=== PATIENT | female | born 1940 | race Caucasian/White ===

== ENCOUNTER 2020-04-25 11:25 | Outpatient (REF) | payer MEDICARE, SELFPAY ==
--- NOTE | 2020-04-25 11:34 | MM_ITS ---
EXAMINATION: MM SCREENING DIGITAL BREAST TOMOSYNTHESIS, BILATERAL CLINICAL INFORMATION: Screening. Asymptomatic. Family history postmenopausal breast cancer in mother. The lifetime risk of breast cancer based on the Tyrer-Cuzick Model is 2%. COMPARISON: Mammography: 04/11/2019, 03/21/2018 TECHNIQUE: Digital breast tomosynthesis is performed in both the craniocaudal and mediolateral oblique views along with computer-aided detection (CAD). Synthesized 2D images are generated from the tomosynthesis. FINDINGS: There are scattered areas of fibroglandular density (ACR BI-RADS breast composition Category b). There are no significant masses, abnormal calcifications, or other abnormalities. Parenchymal pattern is similar to prior study. Again, there are scattered bilateral benign round and ductal secretory calcifications. MM/MM tomosynthesis screening BI IMPRESSION: No significant changes from prior studies. ASSESSMENT: BI-RADS 2: Benign RECOMMENDATION: Routine annual mammography screening. This patient's information was entered into a reminder system with a target due date for their next mammogram.
== END 2020-04-25 11:26 | disposition home or self-care (01) ==
LOC: HO.MAMMO 11:25
PROVIDERS: PCP Internal Medicine; Visit Provider Internal Medicine
DX: Z12.31 Encounter for screening mammogram for malignant neoplasm of breast (principal)
CPT/HCPCS: 77063; 77067

== ENCOUNTER 2020-05-01 12:08 | Outpatient (REF) | payer MEDICARE, SELFPAY ==
[2020-05-01 13:32] LABS: MANUAL DIFF FLAG NO
[2020-05-01 13:38] LABS: Basophils Absolute Auto 0.1 X10*3/uL (0.0-0.2); Basophils Percent Auto 0.6 % (0-2); Eosinophils Absolute Auto 0.2 X10*3/uL (0.0-0.4); Eosinophils Percent Auto 2.4 % (0-4); Hematocrit 43.7 % (37-47); Hemoglobin 13.9 g/dl (12.0-16.0); Imm Gran Abs Auto 0.04 X10*3/uL (0.00-0.03); Imm Gran Pct Auto 0.4 % (0.0-0.4); Lymphocytes Absolute Auto 1.6 X10*3/uL (1.2-4.9); Mean Corpuscular HGB Conc 31.8 g/dl (31.0-35.0); Mean Corpuscular Hemoglobin 29.4 pg (27.0-33.0); Mean Corpuscular Volume 92.4 fL (80-98); Mean Platelet Volume 11.1 fL (9.4-12.3); Monocytes Absolute Auto 0.9 X10*3/uL (0.1-1.2); Monocytes Percent Auto 9.7 % (2-11); Neutrophils Absolute Auto 6.6 X10*3/uL (2.0-8.3); Neutrophils Percent Auto 69.9 % (45-73); Platelet Count 172 X10*3/uL (160-400); Red Blood Count 4.73 X10*6/uL (4.20-5.50); Red Cell Distribution Width 13.8 % (11.0-16.0); White Blood Count 9.5 X10*3/uL (4.8-10.8)
[2020-05-01 14:06] LABS: Alanine Aminotransferase 8 U/L (0-31); Albumin Level 4.6 g/dL (3.5-5.0); Alkaline Phosphatase 63 U/L (39-117); Anion Gap 17 (12-20); Aspartate Amino Transferase 18 U/L (5-31); Bilirubin Total 0.6 mg/dL (0.0-1.0); Blood Urea Nitrogen 40 mg/dL (9-16); Calcium 9.7 mg/dL (8.4-10.2); Carbon Dioxide 24 mmol/L (22-29); Chloride 97 mmol/L (96-108); Estimated Glomerular Filt Rate 28; Glucose Random 104 mg/dL (60-115); Magnesium 3.1 mg/dL (1.6-2.6); Potassium 4.9 mmol/l (3.3-5.1); Sodium 133 mmol/L (135-145); Total Protein 7.8 g/dL (6.5-8.0)
[2020-05-01 14:25] LABS: Creatinine Urine 50.74 mg/dL; Microalbum/Creatinine Ratio Ur 57.1 ug/mg cr
[2020-05-01 14:26] LABS: Estimated Average Glucose 117 mg/dL; Hemoglobin A1c % 5.7 %
== END 2020-05-01 12:09 | disposition home or self-care (01) ==
LOC: HO.10HDL 12:08
PROVIDERS: PCP Internal Medicine; Visit Provider Internal Medicine
DX: I42.9 Cardiomyopathy, unspecified (principal); E11.9 Type 2 diabetes mellitus without complications; I48.91 Unspecified atrial fibrillation
CPT/HCPCS: 36415; 80053; 82043; 83036; 83735; 84443; 85025

== ENCOUNTER 2020-05-12 06:59 | Inpatient (IN) | payer MEDICARE, SELFPAY ==
[2020-05-12] VITALS (10 sets, daily range): BP systolic 95–141; BP diastolic 41–80; PULSE 52–62; RESP 16–20; TEMP 36.6–37.2; O2SAT 92–97; BMI 32.3
--- NOTE | 2020-05-12 07:03 | ED_ITS ---
HPI - Fall General Chief Complaint: Fall Stated Complaint: fall @ 9pm,lt shoulder & leg pain Time Seen by Provider: 05/12/20 07:03 Source: patient, EMS and old records reviewed Mode of arrival: EMS Limitations: no limitations History of Present Illness MD complaint: fall Onset (ago): week(s) Fall from: standing and chair Fall witnessed: no Place fall occurred: home Loss of consciousness: none Prolonged down time: no Symptoms prior to fall: none Context: tripped/slipped and history of frequent falls Location of injury: head and face Related Data Home Medications Medication Instructions Recorded Confirmed Calcium 500 + D (D3) 500 mg PO DAILY 05/12/20 05/12/20 apixaban [Eliquis] 5 mg PO BID 05/12/20 05/12/20 aspirin 81 mg PO DAILY 05/12/20 05/12/20 bupropion HCl 150 mg PO DAILY 05/12/20 05/12/20 carvedilol 25 mg PO BID 05/12/20 05/12/20 citalopram 40 mg PO DAILY 05/12/20 05/12/20 furosemide 40 mg PO DAILY 05/12/20 05/12/20 magnesium oxide 800 mg PO BID 05/12/20 05/12/20 metformin 500 mg PO BID 05/12/20 05/12/20 potassium chloride 10 meq PO DAILY 05/12/20 05/12/20 pravastatin 40 mg PO DAILY 05/12/20 05/12/20 sacubitril-valsartan [Entresto] 1 tab PO BID 05/12/20 05/12/20 spironolactone 12.5 mg PO DAILY 05/12/20 05/12/20 trazodone 25 mg PO BEDTIME 05/12/20 05/12/20 Allergies Allergy/AdvReac Type Severity Reaction Status Date / Time No Known Allergies Allergy Unknown UNKNOWN Unverified 03/21/20 15:34 [NO KNOWN ALLERGIES] Review of Systems Review of Systems: Constitutional : No Fever, No Chills ENT/Mouth : No Ear Pain, No Hoarseness, No sore throat Eyes: No Eye Pain, No Swelling, No Redness, No Foreign Body Cardiovascular : No Chest Pain, No SOB Respiratory : No Cough, No Dyspnea Gastrointestinal : No Nausea, No Vomiting, No Diarrhea, No abdominal Pain Genitourinary : No Dysuria, No Hematuria Musculoskeletal : no joint pain, No Myalgias, No Joint Swelling Skin : No Skin lacerations, No rash Neuro : No Weakness, No Numbness, No Loss of Consciousness, No Dizziness, No Headache, frequent falls Psych : No Anxiety/Panic, No Depression Heme/Lymph: no easy bruising, no Lymphadenopathy Endocrine : No Polyuria, No Polydipsia All other systems reviewed and are negative [facility] Past Medical History Attestation statement: The following information was validated with the patient. Source: old records reviewed Medical History (Updated 05/12/20 @ 09:56 by Maria Isabel Rodriguez DO) Afib CHF (congestive heart failure) Diabetes Hepatitis C HTN (hypertension) Hyperlipidemia PTSD (post-traumatic stress disorder) Respiratory failure Surgical History (Updated 05/12/20 @ 07:06 by Maria Isabel Rodriguez DO) H/O section H/O exploratory laparotomy H/O neck surgery Social History Social History (Updated 05/12/20 @ 07:06 by Maria Isabel Rodriguez DO) Alcohol intake: never Smoking Status: Never smoker Use of substances other than those prescribed or required for medical reasons: No Advance Directives: No Advance Directives Information Provided: No Physical Exam Vital Signs: Vital Signs: Last Vital Signs Temp 98.7 F 05/12/20 07:08 Pulse 60 05/12/20 10:45 Resp 16 05/12/20 10:45 BP 109/47 L 05/12/20 10:45 Pulse Ox 94 05/12/20 10:45 Body Mass Index 32.3 Appearance: Alert. Oriented X3. No acute distress. Eyes: Pupils equal, round and reactive to light. ENT: Pharynx normal. Abrasions that appear somewhat old to tip of nose and chin Neck: Normal inspection. Neck supple. CVS: irregular bradycardic heart rate and rhythm. Pulses normal. Respiratory: No respiratory distress. Breath sounds normal. Abdomen: Soft and nontender. Skin: Skin warm and dry. Normal skin color. Normal skin turgor. Extremities: No lower extremity edema. No calf ttp no pain with ROM Neuro: Oriented X 3. No motor deficit. No sensory deficit. Course Course Course Narrative: trop lower than baseline, BNP much lower than baseline lactic acidosis likely due to dehydration and not infection or severe sepsis patinet is obese IBW is 50kg so sepsis fluids would be 1500cc of fluids planned admit for UTI, acute on chronic renal insufficiency focused exam for sepsis performed 1145am MDM - Fall MDM Narrative Medical decision making narrative: 80 yo female with CHF EF 20%, HTN, HPL, DM, PAF on eliquis here with unknown duration a while, weeks of falls at home, denies infections, CP/SOB, no GIB symptoms, states she trips sometimes and other times she loses her balance - given age and AC therapy will obtain labs, CT head/cspine for trauma, EKG, gentle hydration, UA, if workup negative will need PT consult for possible rehab and placement, no obvious trauma other than abrasions to face. Lab Data Result diagrams: 05/12/20 07:32 05/12/20 08:27 Labs: Lab Results 05/12/20 05/12/20 05/12/20 Range/Units 07:32 07:32 07:32 WBC 9.4 (4.8-10.8) X10*3/uL RBC 4.21 (4.20-5.50) X10*6/uL Hgb 12.5 (12.0-16.0) g/dl Hct 37.9 (37-47) % MCV 90.0 (80-98) fL MCH 29.7 (27.0-33.0) pg MCHC 33.0 (31.0-35.0) g/dl RDW 14.2 (11.0-16.0) % Plt Count 194 (160-400) X10*3/uL MPV 10.8 (9.4-12.3) fL Immature Gran % (Auto) 0.4 (0.0-0.4) % Neut % (Auto) 66.9 (45-73) % Lymph % (Auto) 19.4 L (20-40) % [place] % (Auto) 11.0 (2-11) % Eos % (Auto) 1.7 (0-4) % Baso % (Auto) 0.6 (0-2) % Lymph # (Auto) 1.8 (1.2-4.9) X10*3/uL [place] # (Auto) 1.0 (0.1-1.2) X10*3/uL Eos # (Auto) 0.2 (0.0-0.4) X10*3/uL Baso # (Auto) 0.1 (0.0-0.2) X10*3/uL Abs Immat Gran (auto) 0.04 H (0.00-0.03) X10*3/uL Absolute Neuts (auto) 6.3 (2.0-8.3) X10*3/uL Absolute Nucleated RBC 0.000 (0.0-0.012) X10*3/uL Nucleated RBC % (auto) 0.0 (0.0-0.2) /100WBC PT 20.8 H (10.8-13.0) SEC INR 1.7 H (0.9-1.1) APTT 44.7 H (24.1-38.0) SEC Sodium Cancelled Potassium Cancelled Chloride Cancelled Carbon Dioxide Cancelled Anion Gap Cancelled BUN Cancelled Creatinine Cancelled Estim Creat Clear Calc Cancelled Estimated GFR Cancelled Random Glucose Cancelled Lactic Acid (0.5-2.0) mmol/L Lactic Acid Fup @ 2Hr (0.5-2.0) mmol/L Calcium Cancelled Magnesium Cancelled Total Bilirubin Cancelled Direct Bilirubin Cancelled AST Cancelled ALT Cancelled Alkaline Phosphatase Cancelled Total Creatine Kinase Troponin I High Sens (<3.5-17.0) ng/L B-Natriuretic Peptide (<100) pg/mL Total Protein Cancelled Albumin Cancelled Lipase Cancelled Urine Color Urine Appearance Urine pH (5.0-8.0) Ur Specific [place] (1.005-1.025) Urine Protein (NEG-TRACE) MG/DL Urine Glucose (UA) (NEG) MG/DL Urine Ketones (NEG) MG/DL Urine Blood (NEG) Urine Nitrite (NEG) Ur Leukocyte Esterase (NEG) Urine RBC (0) /HPF Urine WBC (0-4) /HPF Ur Squamous Epith Cells /LPF Urine Bacteria /LPF Coronavirus (PCR) (Negative) 05/12/20 05/12/20 05/12/20 Range/Units 07:32 07:32 07:32 WBC (4.8-10.8) X10*3/uL RBC (4.20-5.50) X10*6/uL Hgb (12.0-16.0) g/dl Hct (37-47) % MCV (80-98) fL MCH (27.0-33.0) pg MCHC (31.0-35.0) g/dl RDW (11.0-16.0) % Plt Count (160-400) X10*3/uL MPV (9.4-12.3) fL Immature Gran % (Auto) (0.0-0.4) % Neut % (Auto) (45-73) % Lymph % (Auto) (20-40) % [place] % (Auto) (2-11) % Eos % (Auto) (0-4) % Baso % (Auto) (0-2) % Lymph # (Auto) (1.2-4.9) X10*3/uL [place] # (Auto) (0.1-1.2) X10*3/uL Eos # (Auto) (0.0-0.4) X10*3/uL Baso # (Auto) (0.0-0.2) X10*3/uL Abs Immat Gran (auto) (0.00-0.03) X10*3/uL Absolute Neuts (auto) (2.0-8.3) X10*3/uL Absolute Nucleated RBC (0.0-0.012) X10*3/uL Nucleated RBC % (auto) (0.0-0.2) /100WBC PT (10.8-13.0) SEC INR (0.9-1.1) APTT (24.1-38.0) SEC Sodium Potassium Chloride Carbon Dioxide Anion Gap BUN Creatinine Estim Creat Clear Calc Estimated GFR Random Glucose Lactic Acid 2.1 H* (0.5-2.0) mmol/L Lactic Acid Fup @ 2Hr (0.5-2.0) mmol/L Calcium Magnesium Total Bilirubin Direct Bilirubin AST ALT Alkaline Phosphatase Total Creatine Kinase Cancelled Troponin I High Sens 8.8 (<3.5-17.0) ng/L B-Natriuretic Peptide 505 H (<100) pg/mL Total Protein Albumin Lipase Urine Color Urine Appearance Urine pH (5.0-8.0) Ur Specific [place] (1.005-1.025) Urine Protein (NEG-TRACE) MG/DL Urine Glucose (UA) (NEG) MG/DL Urine Ketones (NEG) MG/DL Urine Blood (NEG) Urine Nitrite (NEG) Ur Leukocyte Esterase (NEG) Urine RBC (0) /HPF Urine WBC (0-4) /HPF Ur Squamous Epith Cells /LPF Urine Bacteria /LPF Coronavirus (PCR) (Negative) 05/12/20 05/12/20 05/12/20 Range/Units 08:27 08:27 08:27 WBC (4.8-10.8) X10*3/uL RBC (4.20-5.50) X10*6/uL Hgb (12.0-16.0) g/dl Hct (37-47) % MCV (80-98) fL MCH (27.0-33.0) pg MCHC (31.0-35.0) g/dl RDW (11.0-16.0) % Plt Count (160-400) X10*3/uL MPV (9.4-12.3) fL Immature Gran % (Auto) (0.0-0.4) % Neut % (Auto) (45-73) % Lymph % (Auto) (20-40) % [place] % (Auto) (2-11) % Eos % (Auto) (0-4) % Baso % (Auto) (0-2) % Lymph # (Auto) (1.2-4.9) X10*3/uL [place] # (Auto) (0.1-1.2) X10*3/uL Eos # (Auto) (0.0-0.4) X10*3/uL Baso # (Auto) (0.0-0.2) X10*3/uL Abs Immat Gran (auto) (0.00-0.03) X10*3/uL Absolute Neuts (auto) (2.0-8.3) X10*3/uL Absolute Nucleated RBC (0.0-0.012) X10*3/uL Nucleated RBC % (auto) (0.0-0.2) /100WBC PT (10.8-13.0) SEC INR (0.9-1.1) APTT (24.1-38.0) SEC Sodium 135 Potassium 5.2 H Chloride 102 Carbon Dioxide 23 Anion Gap 15 BUN 52 H Creatinine 1.96 H Estim Creat Clear Calc 20.3 Estimated GFR 24 Random Glucose 107 Lactic Acid (0.5-2.0) mmol/L Lactic Acid Fup @ 2Hr (0.5-2.0) mmol/L Calcium 9.1 D Magnesium 2.5 Total Bilirubin 0.4 Direct Bilirubin 0.2 AST 18 ALT 13 Alkaline Phosphatase 57 Total Creatine Kinase 33 Troponin I High Sens (<3.5-17.0) ng/L B-Natriuretic Peptide (<100) pg/mL Total Protein 6.7 Albumin 4.0 Lipase 89 H Cancelled Urine Color Urine Appearance Urine pH (5.0-8.0) Ur Specific [place] (1.005-1.025) Urine Protein (NEG-TRACE) MG/DL Urine Glucose (UA) (NEG) MG/DL Urine Ketones (NEG) MG/DL Urine Blood (NEG) Urine Nitrite (NEG) Ur Leukocyte Esterase (NEG) Urine RBC (0) /HPF Urine WBC (0-4) /HPF Ur Squamous Epith Cells /LPF Urine Bacteria /LPF Coronavirus (PCR) (Negative) 05/12/20 05/12/20 05/12/20 Range/Units 08:37 10:00 10:33 WBC (4.8-10.8) X10*3/uL RBC (4.20-5.50) X10*6/uL Hgb (12.0-16.0) g/dl Hct (37-47) % MCV (80-98) fL MCH (27.0-33.0) pg MCHC (31.0-35.0) g/dl RDW (11.0-16.0) % Plt Count (160-400) X10*3/uL MPV (9.4-12.3) fL Immature Gran % (Auto) (0.0-0.4) % Neut % (Auto) (45-73) % Lymph % (Auto) (20-40) % [place] % (Auto) (2-11) % Eos % (Auto) (0-4) % Baso % (Auto) (0-2) % Lymph # (Auto) (1.2-4.9) X10*3/uL [place] # (Auto) (0.1-1.2) X10*3/uL Eos # (Auto) (0.0-0.4) X10*3/uL Baso # (Auto) (0.0-0.2) X10*3/uL Abs Immat Gran (auto) (0.00-0.03) X10*3/uL Absolute Neuts (auto) (2.0-8.3) X10*3/uL Absolute Nucleated RBC (0.0-0.012) X10*3/uL Nucleated RBC % (auto) (0.0-0.2) /100WBC PT (10.8-13.0) SEC INR (0.9-1.1) APTT (24.1-38.0) SEC Sodium Potassium Chloride Carbon Dioxide Anion Gap BUN Creatinine Estim Creat Clear Calc Estimated GFR Random Glucose Lactic Acid (0.5-2.0) mmol/L Lactic Acid Fup @ 2Hr 0.8 (0.5-2.0) mmol/L Calcium Magnesium Total Bilirubin Direct Bilirubin AST ALT Alkaline Phosphatase Total Creatine Kinase Troponin I High Sens (<3.5-17.0) ng/L B-Natriuretic Peptide (<100) pg/mL Total Protein Albumin Lipase Urine Color YELLOW Urine Appearance CLOUDY Urine pH 6.0 (5.0-8.0) Ur Specific [place] 1.025 (1.005-1.025) Urine Protein TRACE (NEG-TRACE) MG/DL Urine Glucose (UA) NEG (NEG) MG/DL Urine Ketones 5 (NEG) MG/DL Urine Blood NEG (NEG) Urine Nitrite NEG (NEG) Ur Leukocyte Esterase 2+ H (NEG) Urine RBC 0 (0) /HPF Urine WBC 15-29 H (0-4) /HPF Ur Squamous Epith Cells 1+ /LPF Urine Bacteria 4+ /LPF Coronavirus (PCR) NEGATIVE (Negative) ECG Data Attestation: I personally reviewed and interpreted this ECG as follows: ECG interpretation date: 05/12/20 ECG interpretation time: 07:45 Interpretation: Rate: 64 Rhythm: NSR with occasional PVCs [place]: normal Normal P waves. Normal JUSTIN. Normal QRS complex. ST T wave : nonspecific, LVH qTC: prolonged prior studies: no sig change, no acute ischemia The study has been interpreted contemporaneously by me. . Discharge Plan Discharge Clinical Impression: Acute UTI, Abrasion, Acute kidney injury Falls Qualifiers: Encounter type: initial encounter Qualified Code(s): W19.XXXA - Unspecified fall, initial encounter Patient Disposition: Admitted As Inpatient
--- NOTE | 2020-05-12 07:11 | ECG_ITS ---
Test Reason : FALLS Blood Pressure : / mmHG Vent. Rate : 064 BPM Atrial Rate : 064 BPM P-R Int : 198 ms QRS Dur : 104 ms QT Int : 494 ms P-R-T Axes : 006 001 076 degrees QTc Int : 509 ms Sinus rhythm with occasional Premature ventricular complexes Left ventricular hypertrophy with repolarization abnormality Prolonged QT Abnormal ECG When compared with ECG of 13-MAR-2020 14:20, Premature ventricular complexes are now Present Referred By: Maria Isabel Rodriguez Electronically Signed By:JAZLYN MORRIS MD
--- NOTE | 2020-05-12 07:11 | CT_ITS ---
EXAMINATION: CT HEAD WITHOUT CONTRAST CLINICAL INFORMATION: Fall, on calculus COMPARISON: September 17, 2013 TECHNIQUE: Contiguous axial imaging was performed from the skull base to vertex without intravenous administration of contrast. This CT examination was performed using dose optimization techniques as appropriate, variously including the following: *Automated exposure control *Adjustment of mA and/or kV according to patient size (this includes techniques or standardized protocols for targeted exams where dose is matched to indication/reason for exam; i.e. extremities or head) *Use of iterative reconstruction technique DLP: 698.27 mGy-cm FINDINGS: There is no evidence of acute intracranial hemorrhage or territorial infarction. No abnormal mass effect or midline shift is seen. Yoo to white matter differentiation is well preserved. No extra-axial fluid collections are identified. 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 The ventricles are normal in size. There is no abnormal attenuation within the brain parenchyma. The osseous structures and soft tissues are normal. The mastoid air cells and visualized portions of the paranasal sinuses are well aerated. There is hyperostosis frontalis interna present. 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 CT/CT head/brain wo con IMPRESSION: No acute intracranial pathology.
--- NOTE | 2020-05-12 07:11 | CT_ITS ---
EXAMINATION: CT CERVICAL SPINE WITHOUT CONTRAST CLINICAL INFORMATION: Trauma COMPARISON: September 25, 2017 TECHNIQUE: CT cervical spine without intrathecal contrast. Sagittal and coronal reconstructions. This CT examination was performed using dose optimization techniques as appropriate, variously including the following: *Automated exposure control *Adjustment of mA and/or kV according to patient size (this includes techniques or standardized protocols for targeted exams where dose is matched to indication/reason for exam; i.e. extremities or head) *Use of iterative reconstruction technique DLP: 516.01 mGy-cm FINDINGS: No abnormal prevertebral soft tissue swelling is seen. The paraspinal muscle fat planes are maintained. No acute cervical spine fracture. There is facet arthropathy seen C3-C7 on the right and C2-C7 on the left. Disc space narrowing is seen at the C6-C7 disc space level and at the C7-T1 disc space level. Posterior disc bulges are seen at the C5-C6 and C6-C7 levels. There is spurring of the joints of [place] with spurring about the left C6-C7 level and right C5-C6 level causing some anterior neural foraminal encroachment. There is some hypertrophied synovium with pannus formation about the dens without bony destruction. Temporomandibular joints appear unremarkable. Pterygoid plates are intact. CT/CT cervical spine wo con IMPRESSION: No acute cervical spine fracture. Multilevel cervical spondylosis.
--- NOTE | 2020-05-12 07:12 | XR_ITS ---
EXAMINATION: XR CHEST CLINICAL INFORMATION: Fall. COMPARISON: 03/12/20. TECHNIQUE: Frontal view of the chest was obtained. FINDINGS: The lungs are well expanded and clear. The pleural spaces are clear. The heart and mediastinal structures are unremarkable. 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 No acute bony abnormality is seen. XR/XR chest 1V IMPRESSION: No acute abnormality.
[2020-05-12] MEDS: 0.9 % Sodium Chloride 500 ML IV (07:33)
[2020-05-12 07:45] LABS: MANUAL DIFF FLAG NO
[2020-05-12 07:49] LABS: Basophils Absolute Auto 0.1 X10*3/uL (0.0-0.2); Basophils Percent Auto 0.6 % (0-2); Eosinophils Absolute Auto 0.2 X10*3/uL (0.0-0.4); Eosinophils Percent Auto 1.7 % (0-4); Hematocrit 37.9 % (37-47); Hemoglobin 12.5 g/dl (12.0-16.0); Imm Gran Abs Auto 0.04 X10*3/uL (0.00-0.03); Imm Gran Pct Auto 0.4 % (0.0-0.4); Lymphocytes Absolute Auto 1.8 X10*3/uL (1.2-4.9); Lymphocytes Percent Auto 19.4 % (20-40); Mean Corpuscular Hemoglobin 29.7 pg (27.0-33.0); Mean Platelet Volume 10.8 fL (9.4-12.3); Neutrophils Absolute Auto 6.3 X10*3/uL (2.0-8.3); Neutrophils Percent Auto 66.9 % (45-73); Platelet Count 194 X10*3/uL (160-400); Red Blood Count 4.21 X10*6/uL (4.20-5.50); Red Cell Distribution Width 14.2 % (11.0-16.0); White Blood Count 9.4 X10*3/uL (4.8-10.8)
[2020-05-12 07:51] LABS: INTERNATIONAL NORM RATIO 1.7 (0.9-1.1); Prothrombin Time 20.8 SEC (10.8-13.0)
[2020-05-12 07:54] LABS: Partial Thromboplastin Time 44.7 SEC (24.1-38.0)
[2020-05-12 08:10] LABS: B Type Natriuretic Peptide 505 pg/mL (<100); Troponin-I High Sensitivity 8.8 ng/L (<3.5-17.0)
[2020-05-12 08:13] LABS: Lactic Acid 2.1 mmol/L (0.5-2.0)
[2020-05-12 08:43] LABS: Glucose Urine UA NEG (NEG); Leukocyte Esterase Urine 2+ (NEG); Nitrite Urine NEG (NEG); Specific Gravity - Urine 1.025 (1.005-1.025); Urine Blood NEG (NEG); Urine Ketones 5 MG/DL (NEG); Urine Protein TRACE MG/DL (NEG-TRACE)
[2020-05-12 08:44] LABS: Appearance Urine CLOUDY; Color Urine YELLOW
[2020-05-12 08:50] LABS: Bacteria Urine 4+ /LPF; RBC Urine 0 /HPF (0); Squamous Epithelial Cell Urine 1+ /LPF
[2020-05-12] MEDS: Magnesium Sulfate/H2O 2 GM/50 ML PIGGYBACK IV (08:52)
[2020-05-12] MEDS: 0.9 % Sodium Chloride 1,000 ML 999 ML IVCONT (09:21)
[2020-05-12 09:23] LABS: Alanine Aminotransferase 13 U/L (0-31); Alkaline Phosphatase 57 U/L (39-117); Aspartate Amino Transferase 18 U/L (5-31); Bilirubin Direct 0.2 mg/dL (0.0-0.5); Bilirubin Total 0.4 mg/dL (0.0-1.0); Magnesium 2.5 mg/dL (1.6-2.6); Total Protein 6.7 g/dL (6.5-8.0)
[2020-05-12 09:24] LABS: Anion Gap 15 (12-20); Blood Urea Nitrogen 52 mg/dL (9-16); Calcium 9.1 mg/dL (8.4-10.2); Carbon Dioxide 23 mmol/L (22-29); Chloride 102 mmol/L (96-108); Creatinine Clr Calc Pharmacy 20.3; Estimated Glomerular Filt Rate 24; Glucose Random 107 mg/dL (60-115); Potassium 5.2 mmol/l (3.3-5.1); Sodium 135 mmol/L (135-145)
[2020-05-12 09:40] LABS: Reflex Lactate? Lactic Acid Added
[2020-05-12 09:45] LABS: Lipase 89 U/L (8-78)
[2020-05-12] MEDS: cefTRIAXone sodium 1 GM in 0.9 % Sodium Chloride 50 ML IV ×2 (09:55→22:01)
--- NOTE | 2020-05-12 10:06 | PC.NURSE ---
PT RESTING QUIETLY NO RESP DIFFICULTIES AWAITING ADMISSION IV FLUIDS AND ANTIBIOTICS INFUSING, MAG HELD FOR ANTIBIOTIC
--- NOTE | 2020-05-12 10:58 | PC.NURSE ---
HOSPITALIST TEAM HERE FOR ADMISSION
--- NOTE | 2020-05-12 11:09 | PM.IMHP ---
History of Present Illness Date of Service: 05/12/20 <Colleen Romeo NP - Last Filed: 05/12/20 12:15> Chief Complaint: Fall. <Colleen Romeo NP - Last Filed: 05/12/20 12:15> 80-year-old woman presenting to the ER after fall. She reports yesterday in the afternoon she had fallen to the ground and does not remember if she had any precipitating symptoms. She reported over last several weeks she has had has had several falls and she reports that she thinks that she loses consciousness but she remembers right away when she is on the floor so maybe she is out for a few seconds. She does have multiple old bruises to her legs and knees. She reports that last night she was walking and then suddenly fell to the ground. Her son was able to help her get up. She did go to bed however when she wake up this morning she was on the couch and her left leg felt like it was numb when she tried to get up she could not walk therefore she laid back down because she felt like she would pass out. EMS was called and patient was brought to the ER to be evaluated. He has significant history of heart failure with reduced ejection fraction with last EF of 25-30% and nonischemic cardiomyopathy. She also has a history of paroxysmal atrial fibrillation. She denies chest pain, shortness of breath, nausea, vomiting, diarrhea. She was noted to be hypotensive in the ER with blood pressure as low as 95/41. Urinalysis was positive. Potassium was mildly elevated at 5.2, creatinine 1.96. Chest x-ray was negative for any consolidation or effusion. Head CT was negative for any acute abnormality. Cervical spine CT was also negative for any acute fracture. She was given a L and half of IV fluids, Rocephin, IV magnesium. She will be admitted for further management treatment of syncope and UTI. <Colleen Romeo NP - Last Filed: 05/12/20 12:15> Review of Systems Review of Systems: Denies any recent fever chills or decrease in appetite respiratory see HPI cardiovascular See HPI gastrointestinal denies any dysphagia abdominal pain nausea vomiting or diarrhea genitourinary denies any dysuria frequency or hematuria musculoskeletal reports neck and left shoulder pain which is chronic due to arthritis. neuropsych denies any weakness or seizures all other systems reviewed are negative <Colleen Romeo NP - Last Filed: 05/12/20 12:15> [facility] Medical History: Medical History (Updated 05/13/20 @ 10:12 by Chacho Tubbs MD) Afib CHF (congestive heart failure) Diabetes Hepatitis C HTN (hypertension) Hyperlipidemia Nonischemic cardiomyopathy PTSD (post-traumatic stress disorder) Respiratory failure <Colleen Romeo NP - Last Filed: 05/12/20 12:15> Functional capacity: independent ambulation <Colleen Romeo NP - Last Filed: 05/12/20 12:15> Pertinent family history: heart disease <Colleen Romeo NP - Last Filed: 05/12/20 12:15> Surgical History: Surgical History H/O cardiac catheterization H/O section H/O exploratory laparotomy H/O neck surgery <Colleen Romeo NP - Last Filed: 05/12/20 12:15> Social History: Social History Household Members: Spouse Housing: House Do you presently have visiting nurse or other home services: Yes Alcohol intake: never Smoking Status: Never smoker Use of substances other than those prescribed or required for medical reasons: No Currently Displaying Signs/Symptoms of Drug Intoxication Withdrawal: No Any prior treatment program specific to substance use: No Have you been hit, kicked, punched, or otherwise hurt by someone within the past year? If so, by whom?: No Do you feel safe in your current relationship?: Yes Is there a partner from a previous relationship who is making you feel unsafe now?: No Are you made to feel afraid or neglected: No Advance Directives: No Advance Directives Information Provided: No Do you have thoughts of harming others: None Do you have a plan to hurt others: No Plan Recently lost weight without trying: No service: No <Colleen Romeo NP - Last Filed: 05/12/20 12:15> Meds Allergies/Adverse reactions: Allergies Allergy/AdvReac Type Severity Reaction Status Date / Time No Known Allergies Allergy Unknown UNKNOWN Unverified 03/21/20 15:34 [NO KNOWN ALLERGIES] <Colleen Romeo NP - Last Filed: 05/12/20 12:15> Home medications: Home Medications Medication Instructions Recorded Confirmed Type Calcium 500 + D (D3) 500 mg PO DAILY 05/12/20 05/12/20 History apixaban [Eliquis] 5 mg PO BID 05/12/20 05/12/20 History aspirin 81 mg PO DAILY 05/12/20 05/12/20 History bupropion HCl 150 mg PO DAILY 05/12/20 05/12/20 History carvedilol 25 mg PO BID 05/12/20 05/12/20 History citalopram 40 mg PO DAILY 05/12/20 05/12/20 History furosemide 40 mg PO DAILY 05/12/20 05/12/20 History magnesium oxide 800 mg PO BID 05/12/20 05/12/20 History metformin 500 mg PO BID 05/12/20 05/12/20 History potassium chloride 10 meq PO DAILY 05/12/20 05/12/20 History pravastatin 40 mg PO DAILY 05/12/20 05/12/20 History sacubitril-valsartan [Entresto] 1 tab PO BID 05/12/20 05/12/20 History spironolactone 12.5 mg PO DAILY 05/12/20 05/12/20 History trazodone 25 mg PO BEDTIME 05/12/20 05/12/20 History <Colleen Romeo NP - Last Filed: 05/12/20 12:15> Physical Exam Vital Signs and Narrative: Vital Signs: Last Vital Signs Temp 98.7 F 05/12/20 07:08 Pulse 60 05/12/20 10:45 Resp 16 05/12/20 10:45 BP 109/47 L 05/12/20 10:45 Pulse Ox 94 05/12/20 10:45 Body Mass Index 32.3 <Colleen Romeo NP - Last Filed: 05/12/20 12:15> Appearing in no acute distress head is normocephalic atraumatic eyes pupils are PERRLA sclera is anicteric mouth throat mucous membranes are intact and moist neck is supple no lymphadenopathy, no JVD noted lung sounds are clear to auscultation heart regular rate rhythm, clear S1, S2 positive bowel sounds, abdomen is soft, nontender neuro patient is alert x3, no focal deficits <Colleen Romeo NP - Last Filed: 05/12/20 12:15> Results Labs CBC and Chem 7: : 11/09/20 04:15 05/13/20 04:15 <Colleen Romeo, SEARCH DIRECTOR - Last Filed: 05/12/20 12:15> Labs: Laboratory Results - last 24 hr 05/12/20 05/12/20 05/12/20 07:32 07:32 07:32 MCV 90.0 MCH 29.7 MCHC 33.0 RDW 14.2 Plt Count 194 MPV 10.8 Immature Gran % (Auto) 0.4 Neut % (Auto) 66.9 Lymph % (Auto) 19.4 L [place] % (Auto) 11.0 Eos % (Auto) 1.7 Baso % (Auto) 0.6 Lymph # (Auto) 1.8 [place] # (Auto) 1.0 Eos # (Auto) 0.2 Baso # (Auto) 0.1 Abs Immat Gran (auto) 0.04 H Absolute Neuts (auto) 6.3 Absolute Nucleated RBC 0.000 Nucleated RBC % (auto) 0.0 PT 20.8 H INR 1.7 H APTT 44.7 H Anion Gap Cancelled Estim Creat Clear Calc Cancelled Estimated GFR Cancelled Random Glucose Cancelled Lactic Acid Calcium Cancelled Magnesium Cancelled Total Bilirubin Cancelled Direct Bilirubin Cancelled AST Cancelled ALT Cancelled Alkaline Phosphatase Cancelled Total Creatine Kinase Troponin I High Sens B-Natriuretic Peptide Total Protein Cancelled Albumin Cancelled Lipase Cancelled Urine Color Urine Appearance Urine pH Ur Specific [place] Urine Protein Urine Glucose (UA) Urine Ketones Urine Blood Urine Nitrite Ur Leukocyte Esterase Urine RBC Urine WBC Ur Squamous Epith Cells Urine Bacteria 05/12/20 05/12/20 05/12/20 07:32 07:32 07:32 MCV MCH MCHC RDW Plt Count MPV Immature Gran % (Auto) Neut % (Auto) Lymph % (Auto) [place] % (Auto) Eos % (Auto) Baso % (Auto) Lymph # (Auto) [place] # (Auto) Eos # (Auto) Baso # (Auto) Abs Immat Gran (auto) Absolute Neuts (auto) Absolute Nucleated RBC Nucleated RBC % (auto) PT INR APTT Anion Gap Estim Creat Clear Calc Estimated GFR Random Glucose Lactic Acid 2.1 H* Calcium Magnesium Total Bilirubin Direct Bilirubin AST ALT Alkaline Phosphatase Total Creatine Kinase Cancelled Troponin I High Sens 8.8 B-Natriuretic Peptide 505 H Total Protein Albumin Lipase Urine Color Urine Appearance Urine pH Ur Specific [place] Urine Protein Urine Glucose (UA) Urine Ketones Urine Blood Urine Nitrite Ur Leukocyte Esterase Urine RBC Urine WBC Ur Squamous Epith Cells Urine Bacteria 05/12/20 05/12/20 05/12/20 08:27 08:27 08:27 MCV MCH MCHC RDW Plt Count MPV Immature Gran % (Auto) Neut % (Auto) Lymph % (Auto) [place] % (Auto) Eos % (Auto) Baso % (Auto) Lymph # (Auto) [place] # (Auto) Eos # (Auto) Baso # (Auto) Abs Immat Gran (auto) Absolute Neuts (auto) Absolute Nucleated RBC Nucleated RBC % (auto) PT INR APTT Anion Gap 15 Estim Creat Clear Calc 20.3 Estimated GFR 24 Random Glucose 107 Lactic Acid Calcium 9.1 D Magnesium 2.5 Total Bilirubin 0.4 Direct Bilirubin 0.2 AST 18 ALT 13 Alkaline Phosphatase 57 Total Creatine Kinase 33 Troponin I High Sens B-Natriuretic Peptide Total Protein 6.7 Albumin 4.0 Lipase 89 H Cancelled Urine Color Urine Appearance Urine pH Ur Specific [place] Urine Protein Urine Glucose (UA) Urine Ketones Urine Blood Urine Nitrite Ur Leukocyte Esterase Urine RBC Urine WBC Ur Squamous Epith Cells Urine Bacteria 05/12/20 08:37 MCV MCH MCHC RDW Plt Count MPV Immature Gran % (Auto) Neut % (Auto) Lymph % (Auto) [place] % (Auto) Eos % (Auto) Baso % (Auto) Lymph # (Auto) [place] # (Auto) Eos # (Auto) Baso # (Auto) Abs Immat Gran (auto) Absolute Neuts (auto) Absolute Nucleated RBC Nucleated RBC % (auto) PT INR APTT Anion Gap Estim Creat Clear Calc Estimated GFR Random Glucose Lactic Acid Calcium Magnesium Total Bilirubin Direct Bilirubin AST ALT Alkaline Phosphatase Total Creatine Kinase Troponin I High Sens B-Natriuretic Peptide Total Protein Albumin Lipase Urine Color YELLOW Urine Appearance CLOUDY Urine pH 6.0 Ur Specific [place] 1.025 Urine Protein TRACE Urine Glucose (UA) NEG Urine Ketones 5 Urine Blood NEG Urine Nitrite NEG Ur Leukocyte Esterase 2+ H Urine RBC 0 Urine WBC 15-29 H Ur Squamous Epith Cells 1+ Urine Bacteria 4+ <Colleen Romeo SEARCH DIRECTOR - Last Filed: 05/12/20 12:15> Imaging Radiologist's Impressions: Impressions Cervical Spine CT 05/12/20 07:11 IMPRESSION: No acute cervical spine fracture. Multilevel cervical spondylosis. Head CT 05/12/20 07:11 IMPRESSION: No acute intracranial pathology. Chest X-Ray 05/12/20 07:12 IMPRESSION: No acute abnormality. <Colleen Romeo NP - Last Filed: 05/12/20 12:15> Assessment and Plan (1) Syncope: Status: Acute <Colleen Romeo NP - Last Filed: 05/12/20 12:15> (2) Acute kidney injury: Status: Acute <Colleen Romeo NP - Last Filed: 05/12/20 12:15> (3) Acute UTI: Status: Acute <Colleen Romeo NP - Last Filed: 05/12/20 12:15> 80-year-old woman admitted with possible syncope, UTI and MELONY. She has had a history of frequent falls more recently and she reports that she feels like she has now, fall so the floor and wakes up within seconds. She does have a history of heart failure with reduced ejection fraction and reported that she was told that she may need a defibrillator. Syncope. Unknown if true syncope. She does have a history of atrial fibrillation and nonischemic cardiomyopathy. So far no abnormal arrhythmias noted on telemetry. Will monitor on telemetry, orthostatic blood pressures, Cardiology to follow, out of bed with assist. UTI. No sepsis. Rocephin, follow urine cultures. Hypotension. Hold antihypertensives for now and follow blood pressure closely. MELONY. May be related to hypoperfusion secondary to hypotension. Received IV fluids in the ER, avoid over-hydration due to history of heart failure. Diabetes mellitus . Sliding scale, ADA diet. Heart failure with reduced ejection fraction. No overt heart failure at this time. Will hold Entresto, Lasix and spironolactone for now due to hypotension and MELONY. Monitor intake and output and daily weights. Continue beta keyshawn. Paroxysmal atrial fibrillation. Will continue apixaban and beta-keyshawn. Depression. Continue home medications. DVT prophylaxis with apixaban. Case discussed with Dr. Traylor Full code <Colleen Romeo NP - Last Filed: 05/12/20 12:15>
[2020-05-12 11:11] LABS: ~Lactic Acid-LAB USE ONLY 0.8 mmol/L (0.5-2.0)
[2020-05-12 11:18] LABS: SARS COV2 PCR INHOUSE NEGATIVE (Negative)
--- NOTE | 2020-05-12 12:42 | PM.EVENT ---
Event Note Date of Service: 05/12/2020 Event Note: Patient seen and examined independently and was present during dent portion of E/M service. Agree with midlevel's history, physical, assessment, and plan. 80F presented with dizzyness, found to have MELONY dizziness, melony ?hypotnesion vs arrtyhemia gentle hydration, cardio eval, monitor labs
--- NOTE | 2020-05-12 14:32 | PC.NURSE ---
called the floor for admission
--- NOTE | 2020-05-12 15:58 | PC.NURSE ---
pt given juice and a sandwich
--- NOTE | 2020-05-12 17:16 | PC.NURSE ---
room has been changed, pt awaiting new rm assignment for tele admit
--- NOTE | 2020-05-12 18:04 | PC.NURSE ---
PT AWAITING TRANSFER TO FLOOR I[facility] REPORTS HER ASSIGNED ROOM IS STILL OCCUPIED
[2020-05-12] MEDS: Acetaminophen 325 MG TABLET 650 MG PO (18:45)
[2020-05-12 21:37] LABS: Glucose, Whole Blood 92 mg/dL (60-115)
[2020-05-12] MEDS: Magnesium Oxide 400 MG TABLET 800 MG PO (22:00)
[2020-05-12] MEDS: traZODone HCL 25 MG HALFTAB PO (22:01)
[2020-05-12] MEDS: Apixaban 5 MG TABLET PO (22:01)
[2020-05-12] MEDS: metFORMIN HCl 500 MG TABLET PO (22:01)
[2020-05-12] MEDS: 0.9 % Sodium Chloride Flush 3 ML SYRINGE IVFLUSH ×2 (22:02→23:51)
[2020-05-13] VITALS (11 sets, daily range): BP systolic 95–145; BP diastolic 50–64; PULSE 56–77; RESP 18–20; TEMP 36.2–37.4; O2SAT 93–98; BMI 33.7
[2020-05-13 04:23] LABS: Basophils Absolute Auto 0.1 X10*3/uL (0.0-0.2); Eosinophils Absolute Auto 0.2 X10*3/uL (0.0-0.4); Eosinophils Percent Auto 3.2 % (0-4); Hemoglobin 11.6 g/dl (12.0-16.0); Imm Gran Abs Auto 0.02 X10*3/uL (0.00-0.03); Imm Gran Pct Auto 0.3 % (0.0-0.4); Lymphocytes Absolute Auto 1.9 X10*3/uL (1.2-4.9); Lymphocytes Percent Auto 29.3 % (20-40); MANUAL DIFF FLAG NO; Mean Corpuscular HGB Conc 33.1 g/dl (31.0-35.0); Mean Corpuscular Hemoglobin 30.3 pg (27.0-33.0); Mean Corpuscular Volume 91.4 fL (80-98); Mean Platelet Volume 10.6 fL (9.4-12.3); Monocytes Absolute Auto 0.7 X10*3/uL (0.1-1.2); Monocytes Percent Auto 11.1 % (2-11); Neutrophils Absolute Auto 3.5 X10*3/uL (2.0-8.3); Neutrophils Percent Auto 55.1 % (45-73); Platelet Count 150 X10*3/uL (160-400); Red Blood Count 3.83 X10*6/uL (4.20-5.50); Red Cell Distribution Width 14.2 % (11.0-16.0); White Blood Count 6.3 X10*3/uL (4.8-10.8)
[2020-05-13 04:52] LABS: Anion Gap 11 (12-20); Blood Urea Nitrogen 42 mg/dL (9-16); Calcium 8.7 mg/dL (8.4-10.2); Carbon Dioxide 24 mmol/L (22-29); Chloride 107 mmol/L (96-108); Creatinine Clr Calc Pharmacy 28.3; Estimated Glomerular Filt Rate 36; Glucose Random 85 mg/dL (60-115); Potassium 4.8 mmol/l (3.3-5.1); Sodium 137 mmol/L (135-145)
[2020-05-13] MEDS: Magnesium Oxide 400 MG TABLET 800 MG PO ×2 (08:40→21:12)
[2020-05-13] MEDS: buPROPion HCl XL 150 MG TAB.ER.24H PO (08:40)
[2020-05-13] MEDS: Aspirin 81 MG TAB.CHEW PO (08:40)
[2020-05-13] MEDS: metFORMIN HCl 500 MG TABLET PO ×2 (08:40→21:12)
[2020-05-13] MEDS: Pravastatin Sodium 40 MG TABLET PO (08:40)
[2020-05-13] MEDS: Apixaban 5 MG TABLET PO ×2 (08:41→21:13)
[2020-05-13] MEDS: Calcium + Vitamin D 250 MG TABLET 500 MG PO (08:41)
[2020-05-13] MEDS: Escitalopram Oxalate 20 MG TABLET PO (08:41)
[2020-05-13] MEDS: Lidocaine 4 % Patch ADH..PATCH 2 PATCH TRANSDERMA (08:44)
[2020-05-13] MEDS: 0.9 % Sodium Chloride Flush 3 ML SYRINGE IVFLUSH ×3 (08:47→21:13)
--- NOTE | 2020-05-13 10:04 | PM.CNCAR ---
History of Present Illness History of Present Illness Date of Consult: May 13, 2020 Requesting physician: Marck Traylor Consult reason: hypotension Chief complaint: fall vs syncope, uti Narrative: Thank you for inviting us in consult on [place] for episodes of syncope. She is a pleasant 80-year-old woman with prior history of nonischemic cardiomyopathy with LVEF of 25-30% on adequate neurohormonal modulation. Over the last 2 weeks she has been having recurrent episodes of falls, she thinks she loses consciousness. She has no prodrome all symptoms of lightheadedness, palpitations, chest pain, shortness of breath. She has had some abrasions on the knees and the face. Yesterday she did not feel well and felt like she was going to pass out again and therefore was referred to the emergency room by her son. When she came in she was noted to have acute kidney injury as well as hypertension. She is also noted to have urinary tract infection and possible urosepsis. She was admitted and given IV hydration as well as antibiotics. Her blood pressure is improved. All her cardiac medications have been appropriately withheld. She continues to remain however on Eliquis despite acute kidney injury. She denies any cardiac symptoms in the recent past. Prior to these episodes happening she says she was quite active around the house and managing her own home she. She was not having any symptoms of palpitations, shortness of breath, orthopnea, PND, leg edema. Review of Systems Constitutional: Constitutional: Denies body ache(s), Denies chills, Denies fever(s), Reports frequent falls and Reports malaise Eyes: Eyes: Reports no additional eye complaints ENT: Reports system reviewed and no additional complaints, except as documented Cardiovascular: Cardiovascular: Denies leg edema, Reports Loss of Consciousness, Denies dyspnea on exertion, Denies orthopnea and Denies paroxysmal nocturnal dyspnea Respiratory: Respiratory: Reports no additional respiratory complaints and Denies dyspnea on exertion Gastrointestinal: Gastrointestinal: Reports no additional gastrointestinal complaints Genitourinary: Genitourinary: Reports no additional female genitourinary complaints Neurologic: Reports system reviewed and no additional complaints, except as documented and Reports frequent falls Psychiatric: Psychiatric: Reports no additional psychiatric complaints Hematologic/Lymphatic: Hematologic/Lymphatic: Reports no additional hematologic/lymphatic complaints Allergic/Immunologic: Allergic/Immunologic: Reports no additional allergic/immunologic complaints PMFSH Past Medical History Medical History Afib CHF (congestive heart failure) Diabetes Hepatitis C HTN (hypertension) Hyperlipidemia PTSD (post-traumatic stress disorder) Respiratory failure Functional capacity: independent ambulation Surgical History Surgical History H/O cardiac catheterization H/O section H/O exploratory laparotomy H/O neck surgery Social History Social History Household Members: Spouse Housing: House Do you presently have visiting nurse or other home services: Yes Alcohol intake: never Smoking Status: Never smoker Use of substances other than those prescribed or required for medical reasons: No Currently Displaying Signs/Symptoms of Drug Intoxication Withdrawal: No Any prior treatment program specific to substance use: No Have you been hit, kicked, punched, or otherwise hurt by someone within the past year? If so, by whom?: No Do you feel safe in your current relationship?: Yes Is there a partner from a previous relationship who is making you feel unsafe now?: No Are you made to feel afraid or neglected: No Advance Directives: No Advance Directives Information Provided: No Do you have thoughts of harming others: None Do you have a plan to hurt others: No Plan Recently lost weight without trying: No service: No Meds Allergies Allergy/AdvReac Type Severity Reaction Status Date / Time No Known Allergies Allergy Unknown UNKNOWN Unverified 03/21/20 15:34 [NO KNOWN ALLERGIES] Home Medications Medication Instructions Recorded Confirmed Type Calcium 500 + D (D3) 500 mg PO DAILY 05/12/20 05/12/20 History apixaban [Eliquis] 5 mg PO BID 05/12/20 05/12/20 History aspirin 81 mg PO DAILY 05/12/20 05/12/20 History bupropion HCl 150 mg PO DAILY 05/12/20 05/12/20 History carvedilol 25 mg PO BID 05/12/20 05/12/20 History citalopram 40 mg PO DAILY 05/12/20 05/12/20 History furosemide 40 mg PO DAILY 05/12/20 05/12/20 History magnesium oxide 800 mg PO BID 05/12/20 05/12/20 History metformin 500 mg PO BID 05/12/20 05/12/20 History potassium chloride 10 meq PO DAILY 05/12/20 05/12/20 History pravastatin 40 mg PO DAILY 05/12/20 05/12/20 History sacubitril-valsartan [Entresto] 1 tab PO BID 05/12/20 05/12/20 History spironolactone 12.5 mg PO DAILY 05/12/20 05/12/20 History trazodone 25 mg PO BEDTIME 05/12/20 05/12/20 History Physical Exam Vital Signs: Vital Signs: Last Vital Signs Temp 97.2 F 05/13/20 07:11 Pulse 60 05/13/20 07:11 Resp 18 05/13/20 07:11 BP 145/56 H 05/13/20 07:11 Pulse Ox 93 05/13/20 07:11 Body Mass Index 33.7 Const: General: cooperative, no acute distress, alert and awake Nutritional Appearance: obese Orientation/consciousness: patient oriented x3 Limitations: no limitations HENMT: Head: Yes normocephalic and Yes abrasion Eyes: General: appearance normal, both eyes and all related structures Neck: Neck: Yes normal visual inspection, Yes trachea midline, Yes supple and Yes no JVD Chest: Chest palpation & inspection: normal inspection of the chest Resp: Effort & Inspection: normal respiratory effort Auscultation: clear to auscultation bilaterally Cardio: Jugular venous distension: no JVD Palpation: abnormal PMI displaced PMI Rate: regular rate Rhythm: regular rhythm Heart sounds: S1 normal heart sound present, S2 normal heart sound present and Other heart sounds present (S4 present) GI: Inspection: Yes normal to inspection Auscultation: normal bowel sounds Skin: General skin exam: no rashes or lesions noted Neuro: General: patient oriented x3 and no focal motor deficits Extrem: General: Yes no clubbing, cyanosis or edema Psych: Appearance: grossly normal Results Labs and Meds Result diagrams: 05/13/20 04:15 05/13/20 04:15 Lab results: Laboratory Results - last 24 hr 05/12/20 05/12/20 05/12/20 10:00 10:33 21:33 WBC RBC Hgb Hct MCV MCH MCHC RDW Plt Count MPV Immature Gran % (Auto) Neut % (Auto) Lymph % (Auto) [place] % (Auto) Eos % (Auto) Baso % (Auto) Lymph # (Auto) [place] # (Auto) Eos # (Auto) Baso # (Auto) Abs Immat Gran (auto) Absolute Neuts (auto) Absolute Nucleated RBC Nucleated RBC % (auto) Sodium Potassium Chloride Carbon Dioxide Anion Gap BUN Creatinine Estim Creat Clear Calc Estimated GFR POC Glucose 92 Random Glucose Lactic Acid Fup @ 2Hr 0.8 Calcium Coronavirus (PCR) NEGATIVE 05/13/20 05/13/20 04:15 04:15 WBC 6.3 RBC 3.83 L Hgb 11.6 L Hct 35.0 L MCV 91.4 MCH 30.3 MCHC 33.1 RDW 14.2 Plt Count 150 L MPV 10.6 Immature Gran % (Auto) 0.3 Neut % (Auto) 55.1 Lymph % (Auto) 29.3 [place] % (Auto) 11.1 H Eos % (Auto) 3.2 Baso % (Auto) 1.0 Lymph # (Auto) 1.9 [place] # (Auto) 0.7 Eos # (Auto) 0.2 Baso # (Auto) 0.1 Abs Immat Gran (auto) 0.02 Absolute Neuts (auto) 3.5 Absolute Nucleated RBC 0.000 Nucleated RBC % (auto) 0.0 Sodium 137 Potassium 4.8 Chloride 107 Carbon Dioxide 24 Anion Gap 11 L BUN 42 H Creatinine 1.41 H Estim Creat Clear Calc 28.3 Estimated GFR 36 POC Glucose Random Glucose 85 Lactic Acid Fup @ 2Hr Calcium 8.7 Coronavirus (PCR) Assessment and Plan (1) Syncope: Status: Acute Patient's presentation appears to be secondary to syncope and loss of consciousness most likely related to hypertension and orthostasis. This is most likely related to her current urinary tract infection. She has been hydrated adequately. Be gentle with hydration. Switch to oral hydration at this point time. Continue to monitor kidney functions. Orthostatic vital signs need to be performed. If these are within normal limits would gradually start her neurohormonal modulation. Will start with carvedilol at current time. Hold off on Entresto and Aldactone given that her kidney functions are still not normalized. If the kidney function normalizes by tomorrow may consider starting her on Entresto therapy at a lower dose if her blood pressure allows. Hold off on diuretic therapy at this point time, she does not appear to be in heart failure. Cardiac telemetry does not reveal any significant evidence of arrhythmias. Will sign of the case at current time. Will follow up as outpatient in [address] Nuñez (2) Nonischemic cardiomyopathy: Status: Acute Resume carvedilol therapy. Eventually once kidney function improves, can gradually add Entresto to her regimen. Hold off on diuretics at this point in time. Avoid aggressive hydration to prevent cardiac decompensation. Clinically currently appears to be euvolemic/slightly hypovolemic and well compensated. (3) Acute UTI: Status: Acute Management as per the hospitalist team.
--- NOTE | 2020-05-13 10:05 | MHC.CM.PN ---
met with pt who lives with her son pt is active with [facility] she believes is [facility]ns ,her son will transport nher home when dcd
--- NOTE | 2020-05-13 10:29 | HO.PM.IMPN ---
Subjective Subjective Date of Service: 05/13/20 Interval History: feeling better Cardiovascular Cardiovascular: Reports no additional cardiovascular complaints Respiratory Respiratory: Reports no additional respiratory complaints Physical Exam Vital Signs: Vital Signs: Last Vital Signs Temp 97.2 F 05/13/20 07:11 Pulse 60 05/13/20 07:11 Resp 18 05/13/20 07:11 BP 145/56 H 05/13/20 07:11 Pulse Ox 93 05/13/20 07:11 Body Mass Index 33.7 General: AO X 3, no acute distress Resp: CTA bilateral CVS: S1,S2,RRR GI: soft, non tender, non distended Neuro: motor grossly intact Psych: appropriate affect Objective Data Current Medications Generic Name Dose Route Start Last Admin Trade Name Freq PRN Reason Stop Dose Admin Acetaminophen 650 mg 05/12/20 18:21 05/12/20 18:45 Acetaminophen 325 Mg Tablet PO 650 mg Q6H PRN Administration Pain, Mild (Pain Scale 1-3) Apixaban 5 mg 05/12/20 21:00 05/13/20 08:41 Apixaban 5 Mg Tablet PO 5 mg BID BEST Administration Aspirin 81 mg 05/13/20 09:00 05/13/20 08:40 Aspirin 81 Mg Tab.Chew PO 81 mg DAILY BEST Administration Bupropion HCl 150 mg 05/13/20 09:00 05/13/20 08:40 Bupropion Hcl Xl 150 Mg Tab.Er.24h PO 150 mg DAILY BEST Administration Calcium Carbonate/Cholecalciferol 500 mg 05/13/20 09:00 05/13/20 08:41 Calcium + Vitamin D 250 Mg Tablet PO 500 mg DAILY BEST Administration Carvedilol 25 mg 05/13/20 10:05 Carvedilol 25 Mg Tablet PO BID [facility] Protocol Escitalopram Oxalate 20 mg 05/13/20 09:00 05/13/20 08:41 Escitalopram Oxalate 20 Mg Tablet PO 20 mg DAILY BEST Administration Ceftriaxone Sodium 1 gm/ 50 mls @ 100 mls/hr 05/12/20 20:00 05/12/20 22:50 Sodium Chloride IV Infused Q24H BEST Infusion Lidocaine 2 patch 05/12/20 18:21 05/13/20 08:44 Lidocaine 4 % Patch Adh..Patch TRANSDERMA 2 patch DAILY BEST Administration Protocol Magnesium Oxide 800 mg 05/12/20 21:00 05/13/20 08:40 Magnesium Oxide 400 Mg Tablet PO 800 mg BID BEST Administration Metformin HCl 500 mg 05/12/20 21:00 05/13/20 08:40 Metformin Hcl 500 Mg Tablet PO 500 mg BID BEST Administration Ondansetron HCl 4 mg 05/12/20 18:21 Ondansetron Hcl 4 Mg/2 Ml Vial IVPUSH Q8H PRN Nausea and Vomiting Pharmacy Consult 1 each 05/12/20 07:11 Consult Rx Perform Med Rec MISCELLANE ONCE PRN Consult order Potassium Chloride 10 meq 05/13/20 09:00 05/13/20 08:40 Potassium Chloride Er 10 Meq Capsule.Er PO 10 meq DAILY BEST Administration Pravastatin Sodium 40 mg 05/13/20 09:00 05/13/20 08:40 Pravastatin Sodium 40 Mg Tablet PO 40 mg DAILY BEST Administration Sodium Chloride 3 ml 05/12/20 18:21 05/13/20 08:47 0.9 % Sodium Chloride Flush 3 Ml Syringe IVFLUSH 3 ml QSHIFT BEST Administration Trazodone HCl 25 mg 05/12/20 21:00 05/12/20 22:01 Trazodone Hcl 25 Mg Halftab PO 25 mg BEDTIME BEST Administration Labs CBC & Chem 7: 05/13/20 04:15 05/13/20 04:15 Microbiology Microbiology Results: Microbiology 05/12/20 00:00 Urine clean catch - Clean Catch Midstream Urine Culture - Preliminary Gram negative miryam Assessment and Plan (1) Syncope: Status: Acute (2) Nonischemic cardiomyopathy: Status: Acute (3) Acute UTI: Status: Acute (4) Acute kidney injury: Status: Acute (5) Falls: Status: Acute Assessment and Plan: 80F presented with weakness, syncope syncope likely due to orthostatic hypotension rehydrated, check orthostatics restart coreg today, if bp ok, slowly restart entresto MELONY improved with hydration monitor chronic systolic CHF now appears euvolemic management as above UTI ceftriaxone, follow up cultures falls, likely related to orthostasis can do PT at home, patient not interested in SNF
[2020-05-13] MEDS: carvediloL 25 MG TABLET PO ×2 (11:36→21:12)
--- NOTE | 2020-05-13 11:58 | MHC.CM.PN ---
correction pt is active with [facility]
[2020-05-13] MEDS: cefTRIAXone sodium 1 GM in 0.9 % Sodium Chloride 50 ML IV (19:59)
[2020-05-13] MEDS: Acetaminophen 325 MG TABLET 650 MG PO (20:06)
[2020-05-13] MEDS: traZODone HCL 25 MG HALFTAB PO (21:12)
[2020-05-14] VITALS (10 sets, daily range): BP systolic 91–142; BP diastolic 53–70; PULSE 51–93; RESP 16–20; TEMP 36.1–36.8; O2SAT 93–97; BMI 33.6
[2020-05-14 06:58] LABS: MANUAL DIFF FLAG NO
[2020-05-14 07:06] LABS: Basophils Absolute Auto 0.1 X10*3/uL (0.0-0.2); Basophils Percent Auto 0.8 % (0-2); Eosinophils Absolute Auto 0.2 X10*3/uL (0.0-0.4); Eosinophils Percent Auto 2.6 % (0-4); Hematocrit 35.9 % (37-47); Hemoglobin 11.8 g/dl (12.0-16.0); Imm Gran Abs Auto 0.01 X10*3/uL (0.00-0.03); Imm Gran Pct Auto 0.2 % (0.0-0.4); Lymphocytes Absolute Auto 1.9 X10*3/uL (1.2-4.9); Lymphocytes Percent Auto 29.6 % (20-40); Mean Corpuscular HGB Conc 32.9 g/dl (31.0-35.0); Mean Corpuscular Volume 91.3 fL (80-98); Mean Platelet Volume 10.8 fL (9.4-12.3); Monocytes Absolute Auto 0.7 X10*3/uL (0.1-1.2); Monocytes Percent Auto 10.6 % (2-11); Neutrophils Absolute Auto 3.6 X10*3/uL (2.0-8.3); Neutrophils Percent Auto 56.2 % (45-73); Platelet Count 153 X10*3/uL (160-400); Red Blood Count 3.93 X10*6/uL (4.20-5.50); Red Cell Distribution Width 14.1 % (11.0-16.0); White Blood Count 6.4 X10*3/uL (4.8-10.8)
[2020-05-14 07:40] LABS: Anion Gap 12 (12-20); Blood Urea Nitrogen 38 mg/dL (9-16); Calcium 9.1 mg/dL (8.4-10.2); Carbon Dioxide 26 mmol/L (22-29); Chloride 106 mmol/L (96-108); Creatinine Clr Calc Pharmacy 29.5; Estimated Glomerular Filt Rate 37; Glucose Fasting 74 mg/dL (60-99); Potassium 5.1 mmol/l (3.3-5.1); Sodium 139 mmol/L (135-145)
[2020-05-14] MEDS: Lidocaine 4 % Patch ADH..PATCH 2 PATCH TRANSDERMA (08:30)
[2020-05-14] MEDS: Calcium + Vitamin D 250 MG TABLET 500 MG PO (08:31)
[2020-05-14] MEDS: Aspirin 81 MG TAB.CHEW PO (08:32)
[2020-05-14] MEDS: 0.9 % Sodium Chloride Flush 3 ML SYRINGE IVFLUSH ×3 (08:32→23:04)
[2020-05-14] MEDS: Pravastatin Sodium 40 MG TABLET PO (08:32)
[2020-05-14] MEDS: carvediloL 25 MG TABLET PO ×2 (08:32→20:14)
[2020-05-14] MEDS: buPROPion HCl XL 150 MG TAB.ER.24H PO (08:32)
[2020-05-14] MEDS: metFORMIN HCl 500 MG TABLET PO (08:32)
[2020-05-14] MEDS: Escitalopram Oxalate 20 MG TABLET PO (08:32)
[2020-05-14] MEDS: Apixaban 5 MG TABLET PO ×2 (08:32→20:14)
[2020-05-14] MEDS: Magnesium Oxide 400 MG TABLET 800 MG PO ×2 (08:33→20:15)
--- NOTE | 2020-05-14 10:16 | HO.PM.IMPN ---
Subjective Subjective Date of Service: 05/14/20 Interval History: improved Cardiovascular Cardiovascular: Reports no additional cardiovascular complaints Respiratory Respiratory: Reports no additional respiratory complaints Physical Exam Vital Signs: Vital Signs: Last Vital Signs Temp 97.5 F 05/14/20 07:48 Pulse 77 05/14/20 07:48 Resp 20 05/14/20 07:48 BP 128/64 05/14/20 07:48 Pulse Ox 97 05/14/20 07:48 Body Mass Index 33.6 General: AO X 3, no acute distress Resp: CTA bilateral CVS: S1,S2,RRR GI: soft, non tender, non distended Neuro: motor grossly intact Psych: appropriate affect Objective Data Current Medications Generic Name Dose Route Start Last Admin Trade Name Freq PRN Reason Stop Dose Admin Acetaminophen 650 mg 05/12/20 18:21 05/13/20 20:06 Acetaminophen 325 Mg Tablet PO 650 mg Q6H PRN Administration Pain, Mild (Pain Scale 1-3) Apixaban 5 mg 05/12/20 21:00 05/14/20 08:32 Apixaban 5 Mg Tablet PO 5 mg BID BEST Administration Aspirin 81 mg 05/13/20 09:00 05/14/20 08:32 Aspirin 81 Mg Tab.Chew PO 81 mg DAILY BEST Administration Bupropion HCl 150 mg 05/13/20 09:00 05/14/20 08:32 Bupropion Hcl Xl 150 Mg Tab.Er.24h PO 150 mg DAILY BEST Administration Calcium Carbonate/Cholecalciferol 500 mg 05/13/20 09:00 05/14/20 08:31 Calcium + Vitamin D 250 Mg Tablet PO 500 mg DAILY BEST Administration Carvedilol 25 mg 05/13/20 10:05 05/14/20 08:32 Carvedilol 25 Mg Tablet PO 25 mg BID BEST Administration Protocol Escitalopram Oxalate 20 mg 05/13/20 09:00 05/14/20 08:32 Escitalopram Oxalate 20 Mg Tablet PO 20 mg DAILY BEST Administration Ceftriaxone Sodium 1 gm/ 50 mls @ 100 mls/hr 05/12/20 20:00 05/13/20 21:19 Sodium Chloride IV Infused Q24H BEST Infusion Lidocaine 2 patch 05/12/20 18:21 05/14/20 08:30 Lidocaine 4 % Patch Adh..Patch TRANSDERMA 2 patch DAILY BEST Administration Protocol Magnesium Oxide 800 mg 05/12/20 21:00 05/14/20 08:33 Magnesium Oxide 400 Mg Tablet PO 800 mg BID BEST Administration Metformin HCl 500 mg 05/12/20 21:00 05/14/20 08:32 Metformin Hcl 500 Mg Tablet PO 500 mg BID BEST Administration Ondansetron HCl 4 mg 05/12/20 18:21 Ondansetron Hcl 4 Mg/2 Ml Vial IVPUSH Q8H PRN Nausea and Vomiting Pharmacy Consult 1 each 05/12/20 07:11 Consult Rx Perform Med Rec MISCELLANE ONCE PRN Consult order Potassium Chloride 10 meq 05/13/20 09:00 05/14/20 08:32 Potassium Chloride Er 10 Meq Capsule.Er PO 10 meq DAILY BEST Administration Pravastatin Sodium 40 mg 05/13/20 09:00 05/14/20 08:32 Pravastatin Sodium 40 Mg Tablet PO 40 mg DAILY BEST Administration Sodium Chloride 3 ml 05/12/20 18:21 05/14/20 08:32 0.9 % Sodium Chloride Flush 3 Ml Syringe IVFLUSH 3 ml QSHIFT BEST Administration Trazodone HCl 25 mg 05/12/20 21:00 05/13/20 21:12 Trazodone Hcl 25 Mg Halftab PO 25 mg BEDTIME BEST Administration Labs CBC & Chem 7: 05/14/20 06:01 05/14/20 06:02 Microbiology Microbiology Results: Microbiology 05/12/20 00:00 Urine clean catch - Clean Catch Midstream Urine Culture - Final Escherichia coli 05/12/20 09:14 Blood - Venous Blood Culture - Preliminary No growth after 24 hours. 05/12/20 09:09 Blood - Venous Blood Culture - Preliminary No growth after 24 hours. Assessment and Plan (1) Syncope: Status: Acute (2) Nonischemic cardiomyopathy: Status: Acute (3) Acute UTI: Status: Acute (4) Acute kidney injury: Status: Acute (5) Falls: Status: Acute Assessment and Plan: 80F presented with weakness, syncope syncope likely due to orthostatic hypotension rehydrated, now orthostatics negative restarted coreg 05/13, will restart entresto at half dose, holding aldactone for low bp and melony will monitor inpatient while adjusting medications as patient very fragile and prone to blood pressure swings MELONY improved with hydration monitor chronic systolic CHF now appears euvolemic management as above UTI pansensitive ecoli, will continue ceftriaxone falls, likely related to orthostasis can do PT at home, patient not interested in SNF
[2020-05-14] MEDS: cefTRIAXone sodium 1 GM in 0.9 % Sodium Chloride 50 ML IV (19:37)
[2020-05-14] MEDS: Sacubitril/Valsartan 24/26 1 TAB TABLET PO (20:15)
[2020-05-14 20:16] LABS: Glucose, Whole Blood 99 mg/dL (60-115)
[2020-05-14] MEDS: traZODone HCL 25 MG HALFTAB PO (20:42)
[2020-05-15] VITALS (14 sets, daily range): BP systolic 85–139; BP diastolic 54–84; PULSE 55–75; RESP 16–20; TEMP 36.5–36.7; O2SAT 94–99; BMI 33.5
[2020-05-15] MEDS: Acetaminophen 325 MG TABLET 650 MG PO (05:44)
[2020-05-15 06:31] LABS: MANUAL DIFF FLAG NO
[2020-05-15 07:17] LABS: Anion Gap 13 (12-20); Blood Urea Nitrogen 39 mg/dL (9-16); Calcium 9.6 mg/dL (8.4-10.2); Carbon Dioxide 26 mmol/L (22-29); Chloride 104 mmol/L (96-108); Creatinine Clr Calc Pharmacy 34.2; Estimated Glomerular Filt Rate 44; Glucose Fasting 124 mg/dL (60-99); Potassium 4.6 mmol/l (3.3-5.1); Sodium 138 mmol/L (135-145)
[2020-05-15 07:28] LABS: Basophils Absolute Auto 0.1 X10*3/uL (0.0-0.2); Basophils Percent Auto 0.8 % (0-2); Eosinophils Absolute Auto 0.2 X10*3/uL (0.0-0.4); Eosinophils Percent Auto 2.8 % (0-4); Hematocrit 36.4 % (37-47); Hemoglobin 12.3 g/dl (12.0-16.0); Imm Gran Abs Auto 0.03 X10*3/uL (0.00-0.03); Imm Gran Pct Auto 0.4 % (0.0-0.4); Lymphocytes Absolute Auto 1.7 X10*3/uL (1.2-4.9); Lymphocytes Percent Auto 23.6 % (20-40); Mean Corpuscular HGB Conc 33.8 g/dl (31.0-35.0); Mean Corpuscular Hemoglobin 30.7 pg (27.0-33.0); Mean Corpuscular Volume 90.8 fL (80-98); Monocytes Absolute Auto 0.8 X10*3/uL (0.1-1.2); Monocytes Percent Auto 10.5 % (2-11); Neutrophils Absolute Auto 4.4 X10*3/uL (2.0-8.3); Neutrophils Percent Auto 61.9 % (45-73); Platelet Count 158 X10*3/uL (160-400); Red Blood Count 4.01 X10*6/uL (4.20-5.50); Red Cell Distribution Width 14.1 % (11.0-16.0); White Blood Count 7.1 X10*3/uL (4.8-10.8)
[2020-05-15] MEDS: buPROPion HCl XL 150 MG TAB.ER.24H PO (08:54)
[2020-05-15] MEDS: Apixaban 5 MG TABLET PO ×2 (08:54→20:03)
[2020-05-15] MEDS: Calcium + Vitamin D 250 MG TABLET 500 MG PO (08:54)
[2020-05-15] MEDS: metFORMIN HCl 500 MG TABLET PO ×2 (08:54→20:03)
[2020-05-15] MEDS: Magnesium Oxide 400 MG TABLET 800 MG PO ×2 (08:55→20:03)
[2020-05-15] MEDS: Pravastatin Sodium 40 MG TABLET PO (08:55)
[2020-05-15] MEDS: Aspirin 81 MG TAB.CHEW PO (08:55)
[2020-05-15] MEDS: Lidocaine 4 % Patch ADH..PATCH 2 PATCH TRANSDERMA (08:55)
[2020-05-15] MEDS: Escitalopram Oxalate 20 MG TABLET PO (08:55)
[2020-05-15] MEDS: carvediloL 25 MG TABLET PO ×2 (08:55→20:03)
[2020-05-15] MEDS: 0.9 % Sodium Chloride Flush 3 ML SYRINGE IVFLUSH ×3 (08:57→20:05)
--- NOTE | 2020-05-15 11:27 | MHC.CM.PN ---
Per ROUNDS discussion, Patient is still orthostatic and not yet medically cleared to be dc to home. Patient is active with [facility] and CM will continue to follow.
--- NOTE | 2020-05-15 11:33 | P.PNIM_ITS ---
Subjective Subjective Date of Service: 05/15/20 Interval History: feels ok Cardiovascular Cardiovascular: Reports no additional cardiovascular complaints Respiratory Respiratory: Reports no additional respiratory complaints Physical Exam Vital Signs: Vital Signs: Last Vital Signs Temp 97.7 F 05/15/20 11:03 Pulse 55 05/15/20 11:03 Resp 18 05/15/20 11:03 BP 106/54 L 05/15/20 11:03 Pulse Ox 99 05/15/20 11:03 Body Mass Index 33.5 General: AO X 3, no acute distress Resp: CTA bilateral CVS: S1,S2,RRR GI: soft, non tender, non distended Neuro: motor grossly intact Psych: appropriate affect Objective Data Current Medications Generic Name Dose Route Start Last Admin Trade Name Freq PRN Reason Stop Dose Admin Acetaminophen 650 mg 05/12/20 18:21 05/15/20 05:44 Acetaminophen 325 Mg Tablet PO 650 mg Q6H PRN Administration Pain, Mild (Pain Scale 1-3) Apixaban 5 mg 05/12/20 21:00 05/15/20 08:54 Apixaban 5 Mg Tablet PO 5 mg BID BEST Administration Aspirin 81 mg 05/13/20 09:00 05/15/20 08:55 Aspirin 81 Mg Tab.Chew PO 81 mg DAILY BEST Administration Bupropion HCl 150 mg 05/13/20 09:00 05/15/20 08:54 Bupropion Hcl Xl 150 Mg Tab.Er.24h PO 150 mg DAILY BEST Administration Calcium Carbonate/Cholecalciferol 500 mg 05/13/20 09:00 05/15/20 08:54 Calcium + Vitamin D 250 Mg Tablet PO 500 mg DAILY BEST Administration Carvedilol 25 mg 05/13/20 10:05 05/15/20 08:55 Carvedilol 25 Mg Tablet PO 25 mg BID BEST Administration Protocol Escitalopram Oxalate 20 mg 05/13/20 09:00 05/15/20 08:55 Escitalopram Oxalate 20 Mg Tablet PO 20 mg DAILY BEST Administration Ceftriaxone Sodium 1 gm/ 50 mls @ 100 mls/hr 05/12/20 20:00 05/14/20 20:18 Sodium Chloride IV Infused Q24H BEST Infusion Lidocaine 2 patch 05/12/20 18:21 05/15/20 08:55 Lidocaine 4 % Patch Adh..Patch TRANSDERMA 2 patch DAILY BEST Administration Protocol Magnesium Oxide 800 mg 05/12/20 21:00 05/15/20 08:55 Magnesium Oxide 400 Mg Tablet PO 800 mg BID BEST Administration Metformin HCl 500 mg 05/12/20 21:00 05/15/20 08:54 Metformin Hcl 500 Mg Tablet PO 500 mg BID BEST Administration Ondansetron HCl 4 mg 05/12/20 18:21 Ondansetron Hcl 4 Mg/2 Ml Vial IVPUSH Q8H PRN Nausea and Vomiting Pharmacy Consult 1 each 05/12/20 07:11 Consult Rx Perform Med Rec MISCELLANE ONCE PRN Consult order Potassium Chloride 10 meq 05/13/20 09:00 05/15/20 08:55 Potassium Chloride Er 10 Meq Capsule.Er PO 10 meq DAILY BEST Administration Pravastatin Sodium 40 mg 05/13/20 09:00 05/15/20 08:55 Pravastatin Sodium 40 Mg Tablet PO 40 mg DAILY BEST Administration Sacubitril/Valsartan 1 tab 05/14/20 21:00 05/15/20 08:57 Sacubitril/Valsartan 1 Tab Tablet PO Not Given BID [facility] Protocol Sodium Chloride 3 ml 05/12/20 18:21 05/15/20 08:57 0.9 % Sodium Chloride Flush 3 Ml Syringe IVFLUSH 3 ml QSHIFT BEST Administration Trazodone HCl 25 mg 05/12/20 21:00 05/14/20 20:42 Trazodone Hcl 25 Mg Halftab PO 25 mg BEDTIME BEST Administration Labs CBC & Chem 7: 05/15/20 05:38 05/15/20 05:38 Microbiology Microbiology Results: Microbiology 05/12/20 09:14 Blood - Venous Blood Culture - Preliminary No growth after 48 hours. 05/12/20 09:09 Blood - Venous Blood Culture - Preliminary No growth after 48 hours. 05/12/20 00:00 Urine clean catch - Clean Catch Midstream Urine Culture - Final Escherichia coli Assessment and Plan (1) Syncope: Status: Acute (2) Nonischemic cardiomyopathy: Status: Acute (3) Acute UTI: Status: Acute (4) Acute kidney injury: Status: Acute (5) Falls: Status: Acute Assessment and Plan: 80F presented with weakness, syncope syncope likely due to orthostatic hypotension restarted coreg 05/13, and had one dose entresto at half dose am of 05/14, aldactone on hold. now significantly orthostatic again will monitor inpatient while adjusting medications as patient very fragile and prone to blood pressure swings MELONY improved with hydration monitor chronic systolic CHF coreg, holding diuretics UTI pansensitive ecoli, will continue ceftriaxone falls, likely related to orthostasis can do PT at home, patient not interested in SNF
[2020-05-15] MEDS: Lactated Ringers 1,000 ML 80 ML IVCONT (18:39)
[2020-05-15] MEDS: traZODone HCL 25 MG HALFTAB PO (20:03)
[2020-05-15] MEDS: cefTRIAXone sodium 1 GM in 0.9 % Sodium Chloride 50 ML IV (20:04)
[2020-05-16] VITALS: BP 158/72; PULSE 60; RESP 18; TEMP 36.6; O2SAT 95
[2020-05-16 03:38] VITALS: BP 120/66; PULSE 59; RESP 18; TEMP 36.5; O2SAT 95
[2020-05-16 05:02] LABS: MANUAL DIFF FLAG NO
[2020-05-16 05:11] LABS: Basophils Percent Auto 0.5 % (0-2); Eosinophils Absolute Auto 0.2 X10*3/uL (0.0-0.4); Eosinophils Percent Auto 3.3 % (0-4); Hematocrit 34.6 % (37-47); Hemoglobin 11.5 g/dl (12.0-16.0); Imm Gran Abs Auto 0.03 X10*3/uL (0.00-0.03); Imm Gran Pct Auto 0.4 % (0.0-0.4); Lymphocytes Absolute Auto 1.9 X10*3/uL (1.2-4.9); Lymphocytes Percent Auto 25.4 % (20-40); Mean Corpuscular HGB Conc 33.2 g/dl (31.0-35.0); Mean Corpuscular Hemoglobin 29.6 pg (27.0-33.0); Mean Corpuscular Volume 88.9 fL (80-98); Mean Platelet Volume 10.9 fL (9.4-12.3); Monocytes Absolute Auto 0.7 X10*3/uL (0.1-1.2); Monocytes Percent Auto 10.1 % (2-11); Neutrophils Absolute Auto 4.4 X10*3/uL (2.0-8.3); Neutrophils Percent Auto 60.3 % (45-73); Platelet Count 145 X10*3/uL (160-400); Red Blood Count 3.89 X10*6/uL (4.20-5.50); Red Cell Distribution Width 14.2 % (11.0-16.0); White Blood Count 7.4 X10*3/uL (4.8-10.8)
[2020-05-16] MEDS: Lactated Ringers 1,000 ML 80 ML IVCONT (05:59)
[2020-05-16 06:00] VITALS: BMI 34.7
[2020-05-16 07:17] LABS: Glucose, Whole Blood 80 mg/dL (60-115)
[2020-05-16 08:05] LABS: Anion Gap 15 (12-20); Blood Urea Nitrogen 39 mg/dL (9-16); Calcium 9.2 mg/dL (8.4-10.2); Carbon Dioxide 20 mmol/L (22-29); Chloride 107 mmol/L (96-108); Estimated Glomerular Filt Rate 45; Glucose Fasting 78 mg/dL (60-99); Potassium 5.2 mmol/l (3.3-5.1); Sodium 137 mmol/L (135-145)
[2020-05-16 08:20] VITALS: BP 130/60; PULSE 54; RESP 14; TEMP 36.6; O2SAT 95
[2020-05-16 08:30] VITALS: BP 144/68; PULSE 62
[2020-05-16 08:40] VITALS: BP 107/61; BP 125/62; PULSE 67; PULSE 80
[2020-05-16] MEDS: Calcium + Vitamin D 250 MG TABLET 500 MG PO (09:33)
[2020-05-16] MEDS: Aspirin 81 MG TAB.CHEW PO (09:33)
[2020-05-16] MEDS: Magnesium Oxide 400 MG TABLET 800 MG PO (09:33)
[2020-05-16] MEDS: metFORMIN HCl 500 MG TABLET PO (09:33)
[2020-05-16] MEDS: 0.9 % Sodium Chloride Flush 3 ML SYRINGE IVFLUSH (09:33)
[2020-05-16] MEDS: buPROPion HCl XL 150 MG TAB.ER.24H PO (09:33)
[2020-05-16] MEDS: Apixaban 5 MG TABLET PO (09:34)
[2020-05-16] MEDS: Pravastatin Sodium 40 MG TABLET PO (09:34)
[2020-05-16] MEDS: carvediloL 25 MG TABLET PO (09:34)
[2020-05-16] MEDS: Escitalopram Oxalate 20 MG TABLET PO (09:34)
[2020-05-16] MEDS: Lidocaine 4 % Patch ADH..PATCH 2 PATCH TRANSDERMA (09:35)
--- NOTE | 2020-05-16 11:04 | MHC.CM.PN ---
Per ROUNDS discussion, Patient will be medically cleared for dc to home today with VNA. Patient is active with [facility], who has been informed of today's dc. Second IMM addressed with Patient, who is aware of and in agreement with the dc plan.
--- NOTE | 2020-05-16 11:07 | P.DS_ITS ---
DS: Providers Provider Date of admission: 05/12/20 14:11 Primary care physician: Nilo Carvajal MD Consults: 05/12/20 18:21 Consult to Cardiology Routine Consulting Provider: Bandar Aldrich Reason for consultation: ? syncope, HFrEF Has provider been notified: No DS: Diagnosis Discharge Diagnosis (1) Syncope: Status: Acute (2) Nonischemic cardiomyopathy: Status: Acute (3) Acute UTI: Status: Acute (4) Acute kidney injury: Status: Acute (5) Falls: Status: Acute DS: Medications Discharge Medications Home Medications: Home Medications Medication Instructions Recorded Confirmed Calcium 500 + D (D3) 500 mg PO DAILY 05/12/20 05/12/20 Eliquis 5 mg PO BID 05/12/20 05/12/20 aspirin 81 mg PO DAILY 05/12/20 05/12/20 bupropion HCl 150 mg PO DAILY 05/12/20 05/12/20 citalopram 40 mg PO DAILY 05/12/20 05/12/20 magnesium oxide 800 mg PO BID 05/12/20 05/12/20 metformin 500 mg PO BID 05/12/20 05/12/20 potassium chloride 10 meq PO DAILY 05/12/20 05/12/20 pravastatin 40 mg PO DAILY 05/12/20 05/12/20 trazodone 25 mg PO BEDTIME 05/12/20 05/12/20 Previous Rx's Medication Instructions Recorded carvedilol [Coreg] 12.5 mg PO Q12H #60 tab 05/16/20 DS: Summary Hospital Course Hospital Course: patient was admitted for syncope and acute kidney injury due to orthostatic hypotension. her medications were held and she was given IV hydration. She was then observed while reinitiating cardioprotective medications. She was unable to tolerate restarting Entresto. Her carvedilol has been decreased from 25 mg b.i.d. to 12.5 mg b.i.d. her Aldactone has been discontinued as well. Her acute kidney injury has resolved, and orthostatic hypotension while still present is less severe. Patient will be discharged home and follow up with Cardiology as outpatient. Time Spent with Patient Time attestation: Total time spent providing and/or coordinating discharge services: Physical Exam Vital Signs: Vital Signs: Last Vital Signs Temp 98 F 05/16/20 08:20 Pulse 80 05/16/20 08:40 Resp 14 05/16/20 08:20 BP 125/62 05/16/20 08:40 Pulse Ox 95 05/16/20 08:20 Body Mass Index 34.7 General: AO X 3, no acute distress Resp: CTA bilateral CVS: S1,S2,RRR GI: soft, non tender, non distended Neuro: motor grossly intact Psych: appropriate affect DS: Data Data Completed and Pending Labs on day of discharge: 05/12/20 00:00 Urine Culture Routine 05/12/20 07:11 ECG 12 lead EKG Stat EKG Documentation DIRECTED CT cervical spine wo con Stat CT head/brain wo con Stat 05/12/20 07:12 XR chest 1V Stat 05/12/20 07:15 0.9 % Sodium Chloride [Ns] 500 ml IV 500 mls/hr 05/12/20 07:32 B Type Natriuretic Peptide Stat Complete Blood Count Auto Diff Stat Lactic Acid Stat Partial Thromboplastin Time Stat Prothrombin Time INR Stat Troponin-I High Sensitivity Stat 05/12/20 08:27 Basic Metabolic Panel Stat CPK [Creatine Kinase Total] Stat Lipase Stat Liver Panel Stat Magnesium Stat 05/12/20 08:28 Magnesium Sulfate/H2O 2 gm in 50 ml IV ONCE 05/12/20 09:12 cefTRIAXone sodium [Rocephin] 1 gm 0.9 % Sodium Chloride [Ns] 50 ml IV ONCE 05/12/20 09:25 cefTRIAXone sodium [Rocephin] 1 gm .ROUTE .STK-MED ONE 05/12/20 09:30 0.9 % Sodium Chloride [Ns] 1,000 ml IVCONT 999 mls/hr 05/12/20 10:00 SARS COV2 PCR INHOUSE Stat 05/12/20 10:33 ~Lactic Acid-LAB USE ONLY Stat 05/12/20 11:15 Transfer Order Routine 05/12/20 Lunch Diabetic Diet 05/12/20 18:21 Cont. Telemetry w/Vital Sign limit Q4HR 05/12/20 21:33 Glucose, Whole Blood Routine 05/12/20 21:54 cefTRIAXone sodium [Rocephin] 1 gm .ROUTE .STK-MED ONE 05/13/20 04:15 Basic Metabolic Panel DAILY@0600 Complete Blood Count Auto Diff DAILY@0600 05/13/20 19:54 cefTRIAXone sodium [Rocephin] 1 gm .ROUTE .STK-MED ONE 05/14/20 06:01 Complete Blood Count Auto Diff Routine 05/14/20 06:02 BMP [Basic Metabolic Panel Fasting] Routine 05/14/20 19:22 cefTRIAXone sodium [Rocephin] 1 gm .ROUTE .[facility] ONE 05/14/20 20:12 Glucose, Whole Blood Routine 05/14/20 21:00 Sacubitril/Valsartan [Entresto 24/ mg] 1 tab PO BID 05/15/20 05:38 BMP [Basic Metabolic Panel Fasting] Routine Complete Blood Count Auto Diff Routine 05/15/20 19:58 cefTRIAXone sodium [Rocephin] 1 gm .ROUTE .[facility] ONE 05/16/20 04:51 Complete Blood Count Auto Diff Routine 05/16/20 06:19 Basic Metabolic Panel Fasting Routine 05/16/20 07:13 Glucose, Whole Blood Routine Laboratory Last Values WBC 7.4 X10*3/uL (4.8-10.8) 05/16/20 04:51 RBC 3.89 X10*6/uL (4.20-5.50) L 05/16/20 04:51 Hgb 11.5 g/dl (12.0-16.0) L 05/16/20 04:51 Hct 34.6 % (37-47) L 05/16/20 04:51 MCV 88.9 fL (80-98) 05/16/20 04:51 MCH 29.6 pg (27.0-33.0) 05/16/20 04:51 MCHC 33.2 g/dl (31.0-35.0) 05/16/20 04:51 RDW 14.2 % (11.0-16.0) 05/16/20 04:51 Plt Count 145 X10*3/uL (160-400) L 05/16/20 04:51 MPV 10.9 fL (9.4-12.3) 05/16/20 04:51 Immature Gran % (Auto) 0.4 % (0.0-0.4) 05/16/20 04:51 Neut % (Auto) 60.3 % (45-73) 05/16/20 04:51 Lymph % (Auto) 25.4 % (20-40) 05/16/20 04:51 Parke % (Auto) 10.1 % (2-11) 05/16/20 04:51 Eos % (Auto) 3.3 % (0-4) 05/16/20 04:51 Baso % (Auto) 0.5 % (0-2) 05/16/20 04:51 Lymph # (Auto) 1.9 X10*3/uL (1.2-4.9) 05/16/20 04:51 Parke # (Auto) 0.7 X10*3/uL (0.1-1.2) 05/16/20 04:51 Eos # (Auto) 0.2 X10*3/uL (0.0-0.4) 05/16/20 04:51 Baso # (Auto) 0.0 X10*3/uL (0.0-0.2) 05/16/20 04:51 Abs Immat Gran (auto) 0.03 X10*3/uL (0.00-0.03) 05/16/20 04:51 Absolute Neuts (auto) 4.4 X10*3/uL (2.0-8.3) 05/16/20 04:51 Absolute Nucleated RBC 0.000 X10*3/uL (0.0-0.012) 05/16/20 04:51 Nucleated RBC % (auto) 0.0 /100WBC (0.0-0.2) 05/16/20 04:51 PT 20.8 SEC (10.8-13.0) H 05/12/20 07:32 INR 1.7 (0.9-1.1) H 05/12/20 07:32 APTT 44.7 SEC (24.1-38.0) H 05/12/20 07:32 Sodium 137 mmol/L (135-145) 05/16/20 06:19 Potassium 5.2 mmol/l (3.3-5.1) H 05/16/20 06:19 Chloride 107 mmol/L (96-108) 05/16/20 06:19 Carbon Dioxide 20 mmol/L (22-29) L 05/16/20 06:19 Anion Gap 15 (12-20) 05/16/20 06:19 BUN 39 mg/dL (9-16) H 05/16/20 06:19 Creatinine 1.15 mg/dL (0.5-1.4) 05/16/20 06:19 Estim Creat Clear Calc 36.0 05/16/20 06:19 Estimated GFR 45 05/16/20 06:19 POC Glucose 80 mg/dL (60-115) 05/16/20 07:13 Random Glucose 85 mg/dL (60-115) 05/13/20 04:15 Fasting Glucose 78 mg/dL (60-99) D 05/16/20 06:19 Lactic Acid 2.1 mmol/L (0.5-2.0) H* 05/12/20 07:32 Lactic Acid Fup @ 2Hr 0.8 mmol/L (0.5-2.0) 05/12/20 10:33 Calcium 9.2 mg/dL (8.4-10.2) 05/16/20 06:19 Magnesium 2.5 mg/dL (1.6-2.6) 05/12/20 08:27 Total Bilirubin 0.4 mg/dL (0.0-1.0) 05/12/20 08:27 Direct Bilirubin 0.2 mg/dL (0.0-0.5) 05/12/20 08:27 AST 18 U/L (5-31) 05/12/20 08:27 ALT 13 U/L (0-31) 05/12/20 08:27 Alkaline Phosphatase 57 U/L (39-117) 05/12/20 08:27 Total Creatine Kinase 33 U/L (26-140) 05/12/20 08:27 Troponin I High Sens 8.8 ng/L (<3.5-17.0) 05/12/20 07:32 B-Natriuretic Peptide 505 pg/mL (<100) H 05/12/20 07:32 Total Protein 6.7 g/dL (6.5-8.0) 05/12/20 08:27 Albumin 4.0 g/dL (3.5-5.0) 05/12/20 08:27 Lipase 89 U/L (8-78) H 05/12/20 08:27 Lipase Cancelled 05/12/20 08:27 Urine Color YELLOW 05/12/20 08:37 Urine Appearance CLOUDY 05/12/20 08:37 Urine pH 6.0 (5.0-8.0) 05/12/20 08:37 Ur Specific [place] 1.025 (1.005-1.025) 05/12/20 08:37 Urine Protein TRACE MG/DL (NEG-TRACE) 05/12/20 08:37 Urine Glucose (UA) NEG MG/DL (NEG) 05/12/20 08:37 Urine Ketones 5 MG/DL (NEG) 05/12/20 08:37 Urine Blood NEG (NEG) 05/12/20 08:37 Urine Nitrite NEG (NEG) 05/12/20 08:37 Ur Leukocyte Esterase 2+ (NEG) H 05/12/20 08:37 Urine RBC 0 /HPF (0) 05/12/20 08:37 Urine WBC 15-29 /HPF (0-4) H 05/12/20 08:37 Ur Squamous Epith Cells 1+ /LPF 05/12/20 08:37 Urine Bacteria 4+ /LPF 05/12/20 08:37 Coronavirus (PCR) NEGATIVE (Negative) 05/12/20 10:00 Preliminary micro results at discharge 05/12/20 09:14 Blood Culture - Preliminary Blood - Venous No growth after 48 hours. 05/12/20 09:09 Blood Culture - Preliminary Blood - Venous No growth after 48 hours. Discharge Plan Discharge Patient Disposition: Home Health Service Referrals: [facility] [Outside] Nilo Carvajal MD [Primary Care Provider] - 1 Week (05/27/2020 @11:00am Please call and reschedule if you can't keep this appointment) Discharge Medications: New carvedilol [Coreg] 12.5 mg tablet 12.5 mg PO Q12H Qty: 60 RF: 0 Continued metformin 500 mg tablet 500 mg PO BID RF: 0 citalopram 40 mg tablet 40 mg PO DAILY RF: 0 trazodone 50 mg tablet 25 mg PO BEDTIME RF: 0 potassium chloride 10 mEq tablet,ER particles/crystals 10 meq PO DAILY RF: 0 bupropion HCl 150 mg tablet extended release 24 hr 150 mg PO DAILY RF: 0 Eliquis 5 mg tablet 5 mg PO BID RF: 0 aspirin 81 mg Tablet 81 mg PO DAILY RF: 0 pravastatin 40 mg tablet 40 mg PO DAILY RF: 0 magnesium oxide 800 mg PO BID RF: 0 Calcium 500 + D (D3) 500 mg PO DAILY RF: 0 Discontinued furosemide 40 mg tablet 40 mg PO DAILY RF: 0 carvedilol 25 mg tablet 25 mg PO BID RF: 0 Entresto 49-51 mg tablet 1 tab PO BID RF: 0 spironolactone 25 mg tablet 12.5 mg PO DAILY RF: 0 Discharge Orders: Discharge Order (Routine); Ordered 05/16/20 Ordered By: Marck Traylor Diet: advance to usual diet Activity on Discharge: As tolerated Visit Report Forms: Patient Portal Discharge page Care Plan Goals: recovery Health Concerns: orthostatic hypotension Plan of Treatment: stop entresto, aldactone, decrease coreg to 12.5mg bid
[2020-05-16 11:50] VITALS: BP 145/70; PULSE 62; RESP 18; TEMP 36.6; O2SAT 94
== END 2020-05-16 17:00 | disposition home health service (06) | DRG 690 ==
LOC: HO.ED 11:26 → HO.IMC 14:25
PROVIDERS: Nurse Practitioner Acute Care; Admitting Provider Internal Medicine; Emergency Provider Emergency Medicine; PCP Internal Medicine; Visit Provider Internal Medicine
DX: N39.0 Urinary tract infection, site not specified (principal); I42.8 Other cardiomyopathies; N17.9 Acute kidney failure, unspecified; I50.22 Chronic systolic (congestive) heart failure; E78.5 Hyperlipidemia, unspecified; F43.10 Post-traumatic stress disorder, unspecified; M25.512 Pain in left shoulder; I11.0 Hypertensive heart disease with heart failure; B96.20 Unspecified Escherichia coli [E. coli] as the cause of diseases classified elsewhere; I95.1 Orthostatic hypotension; I48.0 Paroxysmal atrial fibrillation; Z20.828 Contact with and (suspected) exposure to other viral communicable diseases; Z79.01 Long term (current) use of anticoagulants; Z79.82 Long term (current) use of aspirin; Z79.84 Long term (current) use of oral hypoglycemic drugs; Z79.899 Other long term (current) drug therapy
CPT/HCPCS: 36415; 70450; 71045; 72125; 80048; 80076; 81001; 82550; 82947; 83605; 83690; 83735; 83880; 84484; 85025; 85610; 85730; 87040; 87086; 87088; 87186; 93005; 96361; 96365; 96366; 96375; 99285; J0696; J3475; U0003

== ENCOUNTER 2020-05-21 05:31 | Outpatient (REF) | payer MEDICARE, SELFPAY ==
--- NOTE | 2020-05-21 07:32 | FL_ITS ---
EXAMINATION: XR FLUOROSCOPY WITH IMAGES CLINICAL INFORMATION: Primary osteoarthritis of the left shoulder COMPARISON: None. TECHNIQUE: Fluoroscopy performed by Dr. Dinesh Shepherd. Fluoroscopy time: 0.2 minutes DAP: 1.46 Gycm2 Images: 2 FINDINGS: Radiopaque needles are seen overlying the region of the glenoid and the humeral neck. Degenerative changes are present at the glenohumeral joint. FL/FL guidance in treatment room IMPRESSION: Fluoroscopic guidance for shoulder intervention. Please refer to procedural report for further information.
== END 2020-05-21 05:32 | disposition home or self-care (01) ==
LOC: HO.RADIR 05:31
PROVIDERS: Visit Provider Anesthesiology
DX: M19.012 Primary osteoarthritis, left shoulder (principal)
CPT/HCPCS: 64417

== ENCOUNTER 2020-05-27 12:03 | Outpatient (REF) | payer MEDICARE, SELFPAY ==
[2020-05-27 13:41] LABS: MANUAL DIFF FLAG NO
[2020-05-27 13:50] LABS: Basophils Absolute Auto 0.1 X10*3/uL (0.0-0.2); Basophils Percent Auto 0.9 % (0-2); Eosinophils Absolute Auto 0.2 X10*3/uL (0.0-0.4); Eosinophils Percent Auto 2.2 % (0-4); Hematocrit 38.8 % (37-47); Hemoglobin 12.8 g/dl (12.0-16.0); Imm Gran Abs Auto 0.03 X10*3/uL (0.00-0.03); Imm Gran Pct Auto 0.4 % (0.0-0.4); Lymphocytes Absolute Auto 1.5 X10*3/uL (1.2-4.9); Lymphocytes Percent Auto 18.1 % (20-40); Mean Corpuscular Hemoglobin 29.8 pg (27.0-33.0); Mean Corpuscular Volume 90.4 fL (80-98); Mean Platelet Volume 10.7 fL (9.4-12.3); Monocytes Absolute Auto 0.8 X10*3/uL (0.1-1.2); Monocytes Percent Auto 10.1 % (2-11); Neutrophils Absolute Auto 5.6 X10*3/uL (2.0-8.3); Neutrophils Percent Auto 68.3 % (45-73); Platelet Count 194 X10*3/uL (160-400); Red Blood Count 4.29 X10*6/uL (4.20-5.50); Red Cell Distribution Width 14.9 % (11.0-16.0); White Blood Count 8.2 X10*3/uL (4.8-10.8)
[2020-05-27 14:07] LABS: Estimated Average Glucose 117 mg/dL; Hemoglobin A1c % 5.7 %
[2020-05-27 14:13] LABS: Alanine Aminotransferase 12 U/L (0-31); Albumin Level 4.3 g/dL (3.5-5.0); Alkaline Phosphatase 68 U/L (39-117); Anion Gap 15 (12-20); Aspartate Amino Transferase 14 U/L (5-31); Bilirubin Total 0.4 mg/dL (0.0-1.0); Blood Urea Nitrogen 15 mg/dL (9-16); C Reactive Protein 0.02 mg/dL (< or = 0.50); Calcium 9.9 mg/dL (8.4-10.2); Carbon Dioxide 25 mmol/L (22-29); Chloride 103 mmol/L (96-108); Estimated Glomerular Filt Rate 49; Glucose Random 115 mg/dL (60-115); Magnesium 2.3 mg/dL (1.6-2.6); Potassium 4.1 mmol/l (3.3-5.1); Sodium 139 mmol/L (135-145); Total Protein 7.4 g/dL (6.5-8.0)
[2020-05-27 14:26] LABS: Glucose Urine UA NEG (NEG); Leukocyte Esterase Urine 2+ (NEG); Nitrite Urine NEG (NEG); PH 7.5 (5.0-8.0); Specific Gravity - Urine 1.025 (1.005-1.025); Urine Blood 1+ (NEG); Urine Ketones NEG (NEG); Urine Protein 2+ MG/DL (NEG-TRACE)
[2020-05-27 14:29] LABS: Appearance Urine CLOUDY; Color Urine YELLOW
[2020-05-27 14:44] LABS: Bacteria Urine 1+ /LPF; Squamous Epithelial Cell Urine 1+ /LPF; WBC Urine 30-49 /HPF (0-4)
[2020-05-27 14:56] LABS: Creatinine Urine 302.29 mg/dL
[2020-05-27 15:12] LABS: Microalbum/Creatinine Ratio Ur 156.4 ug/mg cr
== END 2020-05-27 12:04 | disposition home or self-care (01) ==
LOC: HO.10HDL 12:03
PROVIDERS: Visit Provider Internal Medicine
DX: I48.0 Paroxysmal atrial fibrillation (principal); I10 Essential (primary) hypertension; E11.9 Type 2 diabetes mellitus without complications; R55 Syncope and collapse
CPT/HCPCS: 36415; 80053; 81001; 81003; 82043; 83036; 83735; 85025; 86140; 87086

== ENCOUNTER → 2020-05-29 10:34 | Outpatient (BNVA) | payer MEDICARE, SELFPAY | PROVIDERS: PCP Internal Medicine; Referring Provider Internal Medicine; Visit Provider Anesthesiology | DX: G89.4 Chronic pain syndrome (principal); M19.012 Primary osteoarthritis, left shoulder; Z98.890 Other specified postprocedural states | CPT/HCPCS: 99212 ==

== ENCOUNTER → 2020-06-19 12:12 | Outpatient (BNVA) | payer MEDICARE, SELFPAY | PROVIDERS: PCP Internal Medicine; Visit Provider Nurse Practitioner Family | DX: I42.8 Other cardiomyopathies (principal); I95.1 Orthostatic hypotension; I48.0 Paroxysmal atrial fibrillation; W19.XXXA Unspecified fall, initial encounter | CPT/HCPCS: 99212 ==

== ENCOUNTER 2020-06-24 15:56 | Outpatient (REF) | payer MEDICARE, SELFPAY | END 2020-06-24 15:57 | disposition home or self-care (01) | LOC: HO.XRAY 15:56 | PROVIDERS: PCP Internal Medicine; Visit Provider Internal Medicine | DX: M25.512 Pain in left shoulder (principal) | CPT/HCPCS: 73030 ==

== ENCOUNTER 2020-07-19 14:01 | Emergency (ER) | payer MEDICARE, SELFPAY ==
[2020-07-19 14:10] VITALS: PULSE 69; RESP 18; TEMP 37.3; O2SAT 96; BMI 30.9
--- NOTE | 2020-07-19 14:13 | CT_ITS ---
EXAMINATION: CT CHEST, ABDOMEN AND PELVIS WITHOUT CONTRAST CLINICAL INFORMATION: Status post fall, epigastric pain. COMPARISON: None TECHNIQUE: 5 mm thin axial and reformatted 3 mm thin sagittal and coronal images of the chest, abdomen and pelvis were obtained without contrast. DLP: 1465 mGy-cm. FINDINGS: CHEST: The lungs are well expanded and clear of acute pneumonic process. There is minimal dependent bibasilar atelectasis. The heart size is enlarged. The thyroid glands are symmetric and normal. The central trachea and the bronchi are widely patent. No abnormal size mediastinal lymph nodes seen. There are coronary artery calcifications visualized. No pericardial effusion seen There is no pleural effusion or thickening. The axilla and chest wall appear unremarkable. ABDOMEN AND PELVIS: Imaging through the upper abdomen reveals visualized liver, spleen, pancreas, and bilateral adrenal glands are unremarkable. There is exaggerated thoracic kyphosis with mild ventral spondylosis. No lytic process seen. CT/CT chest wo con IMPRESSION: Unremarkable chest exam except for minimal bibasilar dependent atelectasis. Mild cardiomegaly. There are coronary artery calcifications present.
--- NOTE | 2020-07-19 14:13 | CT_ITS ---
EXAMINATION: CT CHEST, ABDOMEN AND PELVIS WITHOUT CONTRAST CLINICAL INFORMATION: Status post fall, epigastric pain. COMPARISON: None TECHNIQUE: 5 mm thin axial and reformatted 3 mm thin sagittal and coronal images of the chest, abdomen and pelvis were obtained without contrast. DLP: 1465 mGy-cm. FINDINGS: CHEST: The lungs are well expanded and clear of acute pneumonic process. There is minimal dependent bibasilar atelectasis. The heart size is enlarged. The thyroid glands are symmetric and normal. The central trachea and the bronchi are widely patent. No abnormal size mediastinal lymph nodes seen. There are coronary artery calcifications visualized. No pericardial effusion seen There is no pleural effusion or thickening. The axilla and chest wall appear unremarkable. ABDOMEN AND PELVIS: Imaging through the upper abdomen reveals visualized liver, spleen, pancreas, and bilateral adrenal glands are unremarkable. There is exaggerated thoracic kyphosis with mild ventral spondylosis. No lytic process seen. CT/CT abdomen pelvis wo con IMPRESSION: Unremarkable chest exam except for minimal bibasilar dependent atelectasis. Mild cardiomegaly. There are coronary artery calcifications present.
--- NOTE | 2020-07-19 14:13 | CT_ITS ---
EXAMINATION: CT HEAD WITHOUT CONTRAST CT CERVICAL SPINE WITHOUT CONTRAST CT FACIAL BONE WITHOUT CONTRAST CLINICAL INFORMATION: Pain post fall. Patient on blood thinning medicine. Left orbit and nasal pain. COMPARISON: Previous head CT scans most recent 05/12/2020. TECHNIQUE: Axial images through the head, cervical spine and facial bones without contrast. Sagittal and coronal reconstructions on the technologist'S workstation were performed. DLP: [phone] mGy-cm FINDINGS: HEAD CT: There is no evidence of an extra-axial collection. There is no evidence of intra-axial or extra-axial hemorrhage. The ventricles and extra-axial CSF spaces are appropriate. There is nonspecific periventricular white matter disease. No mass, mass effect or acute infarct is seen. Review at bone windows demonstrates no skull fracture. There are bilateral nasal bone fractures. There is preorbital soft tissue swelling on the left. There is high attenuation fluid and air seen in the bilateral maxillary sinuses and nasal cavity. CERVICAL SPINE CT: Bone alignment is normal. No fracture or dislocation is seen. There is degenerative spondylosis and degenerative disc disease from C5-C6 to C7-T1. There are degenerative changes at the C1 dens articulation and calcified pannus formation. There is bilateral multilevel facet arthritis. Prevertebral soft tissues are normal. Visualized lung apices are clear. FACIAL BONES: There are bilateral nasal bone fractures. There is a fracture of the anterior nasal septum. There are fractures of the lateral and anterior acevedo of both maxillary sinuses. There is high attenuation soft tissue seen in the bilateral maxillary sinuses and some anterior ethmoid sinuses and the nasal cavity. It is mixed with small air collections. There is extensive air seen in the soft tissues adjacent to the nose, bilateral maxillary sinuses and inferior left orbit. There is left preorbital soft tissue swelling. Post orbital soft tissues are normal. The temporomandibular joints are normal. The pterygoid plates are intact. There are degenerative changes of the visualized cervical spine. CT/CT cervical spine wo con IMPRESSION: Head CT: No acute findings. Cervical spine CT: Multilevel degenerative changes. Facial bone CT: Bilateral displaced nasal bone fractures and nasal septum fracture. Nondisplaced fractures of the anterior and lateral acevedo of both maxillary sinuses. Large amount of high attenuation soft tissue in the bilateral maxillary sinuses and nasal cavity probably representing blood. Preseptal soft tissue swelling over the left orbit. Post orbital soft tissues are normal.
--- NOTE | 2020-07-19 14:14 | ECG_ITS ---
Test Reason : FALL Blood Pressure : / mmHG Vent. Rate : 070 BPM Atrial Rate : 070 BPM P-R Int : 192 ms QRS Dur : 102 ms QT Int : 458 ms P-R-T Axes : 038 018 067 degrees QTc Int : 494 ms Normal sinus rhythm Nonspecific ST abnormality Prolonged QT Abnormal ECG When compared with ECG of 12-MAY-2020 07:40, Premature ventricular complexes are no longer Present Referred By: Sondra Macias Electronically Signed By:CARLOS NOVAK MD
--- NOTE | 2020-07-19 14:16 | XR_ITS ---
EXAMINATION: XR WRIST, RIGHT CLINICAL INFORMATION: Fall, trauma, pain COMPARISON: Right hand radiographs 2014 TECHNIQUE: The right wrist is imaged portably in 4 views. FINDINGS: There is a transverse fracture distal radial metaphysis with mild impaction and dorsal angulation distal radioarticular surface. There is questionable hairline extension to the distal articular surface. There is a comminuted fracture of the distal ulnar likely extending to the distal articular surface. There is no dislocation or destructive process. The carpal bones appear intact. XR/XR wrist RT min 3V IMPRESSION: Fractures distal right radius and ulnar. No dislocation.
--- NOTE | 2020-07-19 14:16 | ED.FALL ---
HPI - Fall General Chief Complaint: Fall Stated Complaint: fall Time Seen by Provider: 07/19/20 14:06 Source: patient and EMS Mode of arrival: EMS Limitations: no limitations History of Present Illness HPI Narrative: 80 y/o female with history of atrial fibrillation on Eliquis, non-ischemic cardiomyopathy, CHF, hx orthostatic hypotension, hx syncope, hx falls who presents to the ED via EMS after she sustained a mechanical fall on her way to her doctor appointment across the stress. She states she tripped on the cement and fell forward. She put her right hand out to catch herself but ended up hitting her face on the concrete. She had immediate bloody nose. She reports pain and swelling of her nose, left eye and right wrist. She states the bloody nose is making her SOB. She denies dizziness or lightheadedness prior to the fall. She denies weakness, headache or neck pain on arrival. She is awake and alert, with slow nose bleed from bilateral nares. MD complaint: fall Onset (ago): hour(s) (1) Fall from: standing Fall witnessed: yes, by family Place fall occurred: street Loss of consciousness: none Prolonged down time: no Symptoms prior to fall: none Context: tripped/slipped Location of injury: head and face Location of injury - extremities: right: forearm (right wrist pain and swelling) Severity: moderate Severity scale (1-10): 6 Quality: sharp and aching Associated symptoms (after fall): shortness of breath Related Data Home Medications Medication Instructions Recorded Confirmed Calcium 500 + D (D3) 500 mg PO DAILY 05/12/20 06/19/20 Eliquis 5 mg PO BID 05/12/20 06/19/20 aspirin 81 mg PO DAILY 05/12/20 06/19/20 bupropion HCl 150 mg PO DAILY 05/12/20 06/19/20 citalopram 40 mg PO DAILY 05/12/20 06/19/20 magnesium oxide 800 mg PO BID 05/12/20 06/19/20 metformin 500 mg PO BID 05/12/20 06/19/20 potassium chloride 10 meq PO DAILY 05/12/20 06/19/20 pravastatin 40 mg PO DAILY 05/12/20 06/19/20 trazodone 25 mg PO BEDTIME 05/12/20 06/19/20 Previous Rx's Medication Instructions Recorded carvedilol [Coreg] 12.5 mg PO Q12H #60 tab 05/16/20 Allergies Allergy/AdvReac Type Severity Reaction Status Date / Time No Known Allergies Allergy Unknown UNKNOWN Unverified 03/21/20 15:34 [NO KNOWN ALLERGIES] Review of Systems Review of Systems: Constitutional: No Fever, No Chills ENT/Mouth: No sore throat, No Rhinorrhea, No Swallowing Difficulty Eyes: + Eye Pain, + Swelling, No Redness Cardiovascular: No Chest Pain, No SOB, No Orthopnea, No Edema Respiratory: No Cough, No Sputum, No Wheezing, No dyspnea Gastrointestinal: No Nausea, No Vomiting, No Diarrhea, No abdominal Pain Genitourinary: No Dysuria, No Urinary Frequency, No Hematuria Musculoskeletal: + joint pain (right wrist), No Myalgias Skin: No Skin Lesions, No rash Neuro: No Weakness, No Numbness, No Dizziness, No Headache Psych: No Anxiety/Panic, No Depression Heme/Lymph: + Bruising (left eye, left hand), No Lymphadenopathy PMFSH Past Medical History Attestation statement: The following information was validated with the patient. Medical History Afib CHF (congestive heart failure) Chronic pain syndrome Diabetes Hepatitis C HTN (hypertension) Hyperlipidemia Nonischemic cardiomyopathy PAF (paroxysmal atrial fibrillation) PTSD (post-traumatic stress disorder) Respiratory failure Surgical History H/O cardiac catheterization (~07/2019) H/O section H/O exploratory laparotomy H/O neck surgery Family History Family History Father Cancer Mother Cancer CVD (cardiovascular disease) Social History Social History Household Members: Spouse Housing: House Alcohol intake: never Smoking Status: Never smoker Smoked in Last 30 Days: No Use of substances other than those prescribed or required for medical reasons: No Advance Directives: Yes Advance Directives Information Provided: Yes Advance Directives on File: Yes Advance Directives Date on File: 05/17/20 service: No Physical Exam Vital Signs: Vital Signs: Last Vital Signs Temp 97.7 F 07/19/20 16:34 Pulse 64 07/19/20 16:34 Resp 19 07/19/20 16:34 BP 170/75 H 07/19/20 16:34 Pulse Ox 94 07/19/20 16:34 Body Mass Index 30.9 Appearance: Elderly female sitting up in bed, Alert. Oriented X3. Dried blood on face, slow trickle of blood from nares Eyes: Pupils equal, round and reactive to light. left periorbial swelling and edema under left eye with early ecchymosis ENT: Upper denture in place, no trauma. blood in posterior pharynx dripping from nasopharynx Neck: C-collar in place, no cervical spinal tenderness, no stepoff deformity appreciated CVS: Normal heart rate and rhythm. Pulses normal. Respiratory: No respiratory distress. Breath sounds normal. Lower left anterior rib tenderness/anterior chest wall tenderness on lower sternum Abdomen: Soft, mild epigastric tenderness. +BS x4. no eccymosis on abdominal wall or bilateral flanks Skin: Skin warm and dry. Normal skin color. Normal skin turgor. No rashes. Extremities: No lower extremity edema. Neuro: Oriented X 3. No motor deficit. No sensory deficit. Course Course Course Narrative: 80 y/o female presents with face/head trauma after mechanical fall. She is on Eliquis. Concern for traumatic ICH - STAT panscan ordered. She is currently AAO x3 with GCS 15. Reevaluation(s) Reevaluation #1: 4pm - Mental status remains unchanged. CT head and neck are unremarkable. Facial bones imaging show, Bilateral displaced nasal bone fractures and nasal septum fracture. Nondisplaced fractures of the anterior and lateral acevedo of both maxillary sinuses. Large amount of high attenuation soft tissue in the bilateral maxillary sinuses and nasal cavity probably representing blood. Preseptal soft tissue swelling over the left orbit. Post orbital soft tissues are normal. Chest and abdominal scans are unremarkable. XR showed distal ulnar/radius fx on the right. Attempted bedside reduction with Dr. Rodriguez but unlikely to be clinically significant given imaging findings. Will place in sugar tong splint and refer to ortho. Patient continues to have slow epistaxis despite nasal clamp. IN TXA applied with good effect. Will continue to monitor closely. Signed out to Ekta BRANDT. Plan to observe in the ED overnight and get PT/CM evaluation in the morning. Consultations Consultation #1: ENT - Dr. Black - spoke with him at 4:25 pm - no acute interventions recommended for the fractures. Most important concern is to stop the epistaxis which is being done with TXA now. Procedures Epistaxis Control Time Out Performed: No Nostril: Yes bilateral Nose prepped with: Yes other (TXA) Direct inspection: Yes unable to visualize Clots removed by: Yes manually Epistaxis treatment: Yes TXA soaked gauze Results of treatment: Yes bleeding controlled and Yes treatment well tolerated Complications: Yes none MDM - Fall Lab Data Result diagrams: 07/19/20 16:09 07/19/20 16:09 Labs: Lab Results 07/19/20 07/19/20 07/19/20 Range/Units 16:09 16:09 16:09 WBC 11.8 H (4.8-10.8) X10*3/uL RBC 3.88 L (4.20-5.50) X10*6/uL Hgb 12.1 (12.0-16.0) g/dl Hct 36.4 L (37-47) % MCV 93.8 (80-98) fL MCH 31.2 (27.0-33.0) pg MCHC 33.2 (31.0-35.0) g/dl RDW 14.4 (11.0-16.0) % Plt Count 209 (160-400) X10*3/uL MPV 10.1 (9.4-12.3) fL Immature Gran % (Auto) 0.6 H (0.0-0.4) % Neut % (Auto) 75.6 H (45-73) % Lymph % (Auto) 12.6 L (20-40) % [place] % (Auto) 8.7 (2-11) % Eos % (Auto) 1.9 (0-4) % Baso % (Auto) 0.6 (0-2) % Lymph # (Auto) 1.5 (1.2-4.9) X10*3/uL [place] # (Auto) 1.0 (0.1-1.2) X10*3/uL Eos # (Auto) 0.2 (0.0-0.4) X10*3/uL Baso # (Auto) 0.1 (0.0-0.2) X10*3/uL Abs Immat Gran (auto) 0.07 H (0.00-0.03) X10*3/uL Absolute Neuts (auto) 8.9 H (2.0-8.3) X10*3/uL Absolute Nucleated RBC 0.000 (0.0-0.012) X10*3/uL Nucleated RBC % (auto) 0.0 (0.0-0.2) /100WBC PT 17.5 H (10.8-13.0) SEC INR 1.5 H (0.9-1.1) APTT 29.8 D (24.1-38.0) SEC Sodium 139 (135-145) mmol/L Potassium 4.2 (3.3-5.1) mmol/l Chloride 106 (96-108) mmol/L Carbon Dioxide 23 (22-29) mmol/L Anion Gap 14 (12-20) BUN 16 (9-16) mg/dL Creatinine 0.83 (0.5-1.4) mg/dL Estim Creat Clear Calc 53.0 Estimated GFR > 60 Random Glucose 135 H (60-115) mg/dL Calcium 9.2 D (8.4-10.2) mg/dL Magnesium 2.0 (1.6-2.6) mg/dL Total Bilirubin 0.4 (0.0-1.0) mg/dL Direct Bilirubin 0.2 (0.0-0.5) mg/dL AST 17 (5-31) U/L ALT 11 (0-31) U/L Alkaline Phosphatase 80 (39-117) U/L Total Protein 6.6 (6.5-8.0) g/dL Albumin 4.0 (3.5-5.0) g/dL Urine Color Urine Appearance Urine pH (5.0-8.0) Ur Specific [place] (1.005-1.025) Urine Protein (NEG-TRACE) MG/DL Urine Glucose (UA) (NEG) MG/DL Urine Ketones (NEG) MG/DL Urine Blood (NEG) Urine Nitrite (NEG) Ur Leukocyte Esterase (NEG) Urine RBC (0) /HPF Urine WBC (0-4) /HPF Ur Squamous Epith Cells /LPF Urine Bacteria /LPF 07/19/20 Range/Units 16:09 WBC (4.8-10.8) X10*3/uL RBC (4.20-5.50) X10*6/uL Hgb (12.0-16.0) g/dl Hct (37-47) % MCV (80-98) fL MCH (27.0-33.0) pg MCHC (31.0-35.0) g/dl RDW (11.0-16.0) % Plt Count (160-400) X10*3/uL MPV (9.4-12.3) fL Immature Gran % (Auto) (0.0-0.4) % Neut % (Auto) (45-73) % Lymph % (Auto) (20-40) % [place] % (Auto) (2-11) % Eos % (Auto) (0-4) % Baso % (Auto) (0-2) % Lymph # (Auto) (1.2-4.9) X10*3/uL [place] # (Auto) (0.1-1.2) X10*3/uL Eos # (Auto) (0.0-0.4) X10*3/uL Baso # (Auto) (0.0-0.2) X10*3/uL Abs Immat Gran (auto) (0.00-0.03) X10*3/uL Absolute Neuts (auto) (2.0-8.3) X10*3/uL Absolute Nucleated RBC (0.0-0.012) X10*3/uL Nucleated RBC % (auto) (0.0-0.2) /100WBC PT (10.8-13.0) SEC INR (0.9-1.1) APTT (24.1-38.0) SEC Sodium (135-145) mmol/L Potassium (3.3-5.1) mmol/l Chloride (96-108) mmol/L Carbon Dioxide (22-29) mmol/L Anion Gap (12-20) BUN (9-16) mg/dL Creatinine (0.5-1.4) mg/dL Estim Creat Clear Calc Estimated GFR Random Glucose (60-115) mg/dL Calcium (8.4-10.2) mg/dL Magnesium (1.6-2.6) mg/dL Total Bilirubin (0.0-1.0) mg/dL Direct Bilirubin (0.0-0.5) mg/dL AST (5-31) U/L ALT (0-31) U/L Alkaline Phosphatase (39-117) U/L Total Protein (6.5-8.0) g/dL Albumin (3.5-5.0) g/dL Urine Color YELLOW Urine Appearance HAZY Urine pH 6.5 (5.0-8.0) Ur Specific [place] 1.025 (1.005-1.025) Urine Protein 1+ H (NEG-TRACE) MG/DL Urine Glucose (UA) NEG (NEG) MG/DL Urine Ketones NEG (NEG) MG/DL Urine Blood 1+ H (NEG) Urine Nitrite NEG (NEG) Ur Leukocyte Esterase 1+ H (NEG) Urine RBC 10-14 H (0) /HPF Urine WBC 15-29 H (0-4) /HPF Ur Squamous Epith Cells 1+ /LPF Urine Bacteria 2+ /LPF ECG Data ECG interpretation date: 07/19/20 ECG interpretation time: 15:14 Interpretation: normal sinus rhythm, HR 70, normal PA interval, prolonged QTc 494 ms similar to prior May 2020 Discharge Plan Discharge Clinical Impression: Fall on same level from tripping, Epistaxis Closed fracture nasal bone Qualifiers: Encounter type: initial encounter Qualified Code(s): S02.2XXA - Fracture of nasal bones, initial encounter for closed fracture Fracture of nasal septum Qualifiers: Encounter type: initial encounter Fracture type: closed Qualified Code(s): S02.2XXA - Fracture of nasal bones, initial encounter for closed fracture Closed fracture of maxillary sinus Qualifiers: Encounter type: initial encounter Qualified Code(s): S02.401A - Maxillary fracture, unspecified side, initial encounter for closed fracture Closed fracture distal radius and ulna Qualifiers: Encounter type: initial encounter Laterality: right Qualified Code(s): S52.501A - Unspecified fracture of the lower end of right radius, initial encounter for closed fracture Prescriptions: No [facility] metformin 500 mg tablet 500 mg PO BID RF: 0 citalopram 40 mg tablet 40 mg PO DAILY RF: 0 trazodone 50 mg tablet 25 mg PO BEDTIME RF: 0 potassium chloride 10 mEq tablet,ER particles/crystals 10 meq PO DAILY RF: 0 bupropion HCl 150 mg tablet extended release 24 hr 150 mg PO DAILY RF: 0 Eliquis 5 mg tablet 5 mg PO BID RF: 0 aspirin 81 mg Tablet 81 mg PO DAILY RF: 0 pravastatin 40 mg tablet 40 mg PO DAILY RF: 0 magnesium oxide 800 mg PO BID RF: 0 Calcium 500 + D (D3) 500 mg PO DAILY RF: 0 carvedilol [Coreg] 12.5 mg tablet 12.5 mg PO Q12H Qty: 60 RF: 0
[2020-07-19 16:16] LABS: MANUAL DIFF FLAG NO
[2020-07-19 16:17] LABS: Basophils Absolute Auto 0.1 X10*3/uL (0.0-0.2); Basophils Percent Auto 0.6 % (0-2); Eosinophils Absolute Auto 0.2 X10*3/uL (0.0-0.4); Eosinophils Percent Auto 1.9 % (0-4); Hematocrit 36.4 % (37-47); Hemoglobin 12.1 g/dl (12.0-16.0); Imm Gran Abs Auto 0.07 X10*3/uL (0.00-0.03); Imm Gran Pct Auto 0.6 % (0.0-0.4); Lymphocytes Absolute Auto 1.5 X10*3/uL (1.2-4.9); Lymphocytes Percent Auto 12.6 % (20-40); Mean Corpuscular HGB Conc 33.2 g/dl (31.0-35.0); Mean Corpuscular Hemoglobin 31.2 pg (27.0-33.0); Mean Corpuscular Volume 93.8 fL (80-98); Mean Platelet Volume 10.1 fL (9.4-12.3); Monocytes Percent Auto 8.7 % (2-11); Neutrophils Absolute Auto 8.9 X10*3/uL (2.0-8.3); Neutrophils Percent Auto 75.6 % (45-73); Platelet Count 209 X10*3/uL (160-400); Red Blood Count 3.88 X10*6/uL (4.20-5.50); Red Cell Distribution Width 14.4 % (11.0-16.0); White Blood Count 11.8 X10*3/uL (4.8-10.8)
[2020-07-19 16:19] LABS: Glucose Urine UA NEG (NEG); Leukocyte Esterase Urine 1+ (NEG); Nitrite Urine NEG (NEG); PH 6.5 (5.0-8.0); Specific Gravity - Urine 1.025 (1.005-1.025); Urine Blood 1+ (NEG); Urine Ketones NEG (NEG); Urine Protein 1+ MG/DL (NEG-TRACE)
[2020-07-19 16:21] LABS: Appearance Urine HAZY; Color Urine YELLOW
[2020-07-19 16:23] LABS: INTERNATIONAL NORM RATIO 1.5 (0.9-1.1); Prothrombin Time 17.5 SEC (10.8-13.0)
[2020-07-19 16:25] LABS: Partial Thromboplastin Time 29.8 SEC (24.1-38.0)
[2020-07-19] MEDS: Acetaminophen 325 MG TABLET 975 MG PO (16:29)
[2020-07-19] MEDS: Tranexamic Acid 1,000 MG/10 ML VIAL 500 MG INTRANASAL (16:29)
[2020-07-19 16:30] LABS: Bacteria Urine 2+ /LPF; Squamous Epithelial Cell Urine 1+ /LPF
[2020-07-19 16:34] VITALS: BP 170/75; PULSE 64; RESP 19; TEMP 36.5; O2SAT 94
[2020-07-19 16:47] LABS: Alanine Aminotransferase 11 U/L (0-31); Alkaline Phosphatase 80 U/L (39-117); Anion Gap 14 (12-20); Aspartate Amino Transferase 17 U/L (5-31); Bilirubin Direct 0.2 mg/dL (0.0-0.5); Bilirubin Total 0.4 mg/dL (0.0-1.0); Blood Urea Nitrogen 16 mg/dL (9-16); Calcium 9.2 mg/dL (8.4-10.2); Carbon Dioxide 23 mmol/L (22-29); Chloride 106 mmol/L (96-108); Estimated Glomerular Filt Rate > 60; Glucose Random 135 mg/dL (60-115); Potassium 4.2 mmol/l (3.3-5.1); Sodium 139 mmol/L (135-145); Total Protein 6.6 g/dL (6.5-8.0)
[2020-07-19] MEDS: traMADoL HCL 50 MG TABLET PO (19:24)
[2020-07-19 19:37] VITALS: BP 180/75; PULSE 69; RESP 12; TEMP 36.7; O2SAT 95
--- NOTE | 2020-07-19 19:46 | PC.NURSE ---
PT IN STRETCHER WATHCING TV AND REQUESTING FOOD. PT C/O PAIN TO FACE AND PATRICIA ARMS. PT ALERT, RESPIRATIONS EASY, N/L. SKIN W/D. PT EATING SANDWICH AND DRINKING CHRISTINA BETO. PT AWAITING FOR FURTHER ORDERS. VS OBTAINED. PT STILL BLEEDING FROM NOSE. RIGHT ARM IN SLING. PT MEDICATED FOR PAIN AND WILL CONTINUE TO MONITOR PT.
[2020-07-19 22:21] VITALS: BP 178/82; PULSE 75; RESP 14; O2SAT 95
[2020-07-19] MEDS: Acetaminophen 325 MG TABLET 650 MG PO (22:50)
[2020-07-19] MEDS: oxyCODONE HCl Immed Release 5 MG TABLET PO (22:51)
[2020-07-19] MEDS: Oxymetazoline HCl 0.05 % Nasal 15 ML SPRAY 2 SPRAY NOSTRIL-B (22:52)
[2020-07-20] VITALS (9 sets, daily range): BP systolic 137–177; BP diastolic 57–91; PULSE 65–81; RESP 12–18; TEMP 36.6–36.9; O2SAT 93–95
--- NOTE | 2020-07-20 00:17 | PC.NURSE ---
NO BLEEDING AT THIS TIME. DOES NOT KNOW MEDS OFF HAND BUT REPORTS SHE TOOK ALL MEDS THIS AM. DOES NOT WANT PAIN MEDS AT THIS TIME.
--- NOTE | 2020-07-20 02:32 | PC.NURSE ---
PATIENT USED BEDPAN. SHEETS NOTED TO BE WET. LINENS CHANGED AND REPOSITIONED IN BED.
[2020-07-20 06:29] LABS: MANUAL DIFF FLAG NO
[2020-07-20 06:51] LABS: Basophils Absolute Auto 0.1 X10*3/uL (0.0-0.2); Basophils Percent Auto 0.5 % (0-2); Eosinophils Absolute Auto 0.2 X10*3/uL (0.0-0.4); Eosinophils Percent Auto 1.8 % (0-4); Hemoglobin 11.5 g/dl (12.0-16.0); Imm Gran Abs Auto 0.04 X10*3/uL (0.00-0.03); Imm Gran Pct Auto 0.4 % (0.0-0.4); Lymphocytes Percent Auto 21.4 % (20-40); Mean Corpuscular HGB Conc 32.9 g/dl (31.0-35.0); Mean Corpuscular Hemoglobin 30.8 pg (27.0-33.0); Mean Corpuscular Volume 93.8 fL (80-98); Mean Platelet Volume 10.3 fL (9.4-12.3); Monocytes Absolute Auto 1.3 X10*3/uL (0.1-1.2); Monocytes Percent Auto 13.2 % (2-11); Neutrophils Absolute Auto 5.9 X10*3/uL (2.0-8.3); Neutrophils Percent Auto 62.7 % (45-73); Platelet Count 181 X10*3/uL (160-400); Red Blood Count 3.73 X10*6/uL (4.20-5.50); Red Cell Distribution Width 14.4 % (11.0-16.0); White Blood Count 9.5 X10*3/uL (4.8-10.8)
[2020-07-20 09:47] LABS: COVID-19 Test Negative (Negative); IDNOW Serial# 9DD0AD1C
[2020-07-20] MEDS: DULoxetine HCl 30 MG CAPSULE.DR PO (10:31)
[2020-07-20] MEDS: Calcium + Vitamin D 250 MG TABLET 500 MG PO (10:31)
[2020-07-20] MEDS: metFORMIN HCl 500 MG TABLET PO (10:31)
[2020-07-20] MEDS: buPROPion HCl XL 150 MG TAB.ER.24H PO (10:32)
[2020-07-20] MEDS: Magnesium Oxide 400 MG TABLET 800 MG PO (10:32)
[2020-07-20] MEDS: Losartan Potassium 50 MG TABLET 100 MG PO (10:32)
[2020-07-20] MEDS: Apixaban 5 MG TABLET PO (10:33)
[2020-07-20] MEDS: Escitalopram Oxalate 10 MG TABLET PO (10:34)
[2020-07-20] MEDS: Pravastatin Sodium 40 MG TABLET PO (10:34)
[2020-07-20] MEDS: Aspirin 81 MG TAB.CHEW PO (10:34)
--- NOTE | 2020-07-20 11:45 | PC.NURSE ---
pt in to see patient, patient oob with pt
[2020-07-20] MEDS: carvediloL 25 MG TABLET PO (11:49)
--- NOTE | 2020-07-20 12:22 | PC.NURSE ---
patient a&o, watching tv, patient medicated with the med that was brought up from the pharmacy, patient requested soft foods for lunch due to facial injuries- kitchen to provide soft meals for her, patient was oob with PT, vitals stable, will continue to monitor.
--- NOTE | 2020-07-20 13:31 | MHC.CM.PN ---
pt has requested a ref. be made to [facility], this was done and patient has been accepted. she is leaving [facility] at 4 pm today. a call and message was left to this affect c her son , michelle. rn and provider in the e.d. are aware of this dc plan. cm to cont. to follow.
--- NOTE | 2020-07-20 13:46 | PC.NURSE ---
report has been called to [place] for discharge to the facility via ambulance at 330 per case management.
== END 2020-07-20 16:26 | disposition skilled nursing facility (03) ==
PROVIDERS: Physician Assistant; Emergency Provider Emergency Medicine; PCP Internal Medicine
DX: R04.0 Epistaxis (principal); S02.2XXA Fracture of nasal bones, initial encounter for closed fracture; S02.40DA Maxillary fracture, left side, initial encounter for closed fracture; S02.40CA Maxillary fracture, right side, initial encounter for closed fracture; S52.501A Unspecified fracture of the lower end of right radius, initial encounter for closed fracture; S00.12XA Contusion of left eyelid and periocular area, initial encounter; W01.198A Fall on same level from slipping, tripping and stumbling with subsequent striking against other object, initial encounter; R10.13 Epigastric pain; G89.11 Acute pain due to trauma; R07.81 Pleurodynia; R07.89 Other chest pain; Z20.822 Contact with and (suspected) exposure to COVID-19; E11.9 Type 2 diabetes mellitus without complications; I11.0 Hypertensive heart disease with heart failure; I50.9 Heart failure, unspecified; I48.0 Paroxysmal atrial fibrillation; Y93.89 Activity, other specified; Y92.480 Sidewalk as the place of occurrence of the external cause; Y99.8 Other external cause status; Z79.01 Long term (current) use of anticoagulants; Z91.81 History of falling
CPT/HCPCS: 29125; 30903; 36415; 70450; 70486; 71250; 72125; 73110; 74176; 80048; 80076; 81001; 83735; 85025; 85610; 85730; 87086; 87635; 93005; 97162; 99285

== ENCOUNTER → 2020-07-23 13:29 | Outpatient (BNVA) | payer MEDICARE, SELFPAY | PROVIDERS: PCP Internal Medicine; Visit Provider Orthopaedic Surgery | DX: S52.501A Unspecified fracture of the lower end of right radius, initial encounter for closed fracture (principal); S52.601A Unspecified fracture of lower end of right ulna, initial encounter for closed fracture | CPT/HCPCS: 99202 ==

== ENCOUNTER 2020-07-29 10:55 | Day surgery (SDC) | payer MEDICARE, SELFPAY ==
--- NOTE | 2020-07-26 12:20 | HO.ANESPROP2 ---
Documented by User: Veronica Mathiasney 07/26/20 12:31 HPI - Anesthesia Eval Consult details Narrative: 80yo F for Radius Distal Fracture ORIF Follows with cardiology for NICMP, fall vs syncope. Last seen 05/2020. Meds adjusted d/t renal function. ? resumed entresto. Eliquis for PAF. Reviewed with Dr Anthony ALLEN Past Medical History Medical History Afib CHF (congestive heart failure) Chronic pain syndrome Diabetes Hepatitis C HTN (hypertension) Hyperlipidemia Nonischemic cardiomyopathy PAF (paroxysmal atrial fibrillation) PTSD (post-traumatic stress disorder) Respiratory failure Family History Family History Father Cancer Mother Cancer CVD (cardiovascular disease) Surgical History Surgical History H/O cardiac catheterization (~07/2019) H/O section H/O exploratory laparotomy H/O neck surgery Hx of hysterectomy Social History Social History Household Members: Spouse Housing: House Alcohol intake: never Smoking Status: Never smoker Advance Directives: No Advance Directives Information Provided: No Advance Directives Date on File: 05/17/20 service: No Meds Allergies Allergy/AdvReac Type Severity Reaction Status Date / Time No Known Allergies Allergy Unknown UNKNOWN Verified 07/29/20 11:21 [NO KNOWN ALLERGIES] Home Medications Medication Instructions Recorded Confirmed Type Calcium 500 + D (D3) 500 mg PO DAILY 05/12/20 07/20/20 History Eliquis 5 mg PO BID 05/12/20 07/20/20 History aspirin 81 mg PO DAILY 05/12/20 07/20/20 History bupropion HCl 150 mg PO DAILY 05/12/20 07/20/20 History magnesium oxide 800 mg PO BID 05/12/20 07/20/20 History metformin 500 mg PO BID 05/12/20 07/20/20 History potassium chloride 10 meq PO DAILY 05/12/20 07/20/20 History pravastatin 40 mg PO DAILY 05/12/20 07/20/20 History trazodone 25 mg PO BEDTIME 05/12/20 07/20/20 History carvedilol 25 mg PO DAILY 07/20/20 07/20/20 History citalopram 20 mg PO DAILY 07/20/20 07/20/20 History duloxetine 30 mg PO DAILY 07/20/20 07/20/20 History losartan 100 mg PO DAILY 07/20/20 07/20/20 History Exam Exam Date and Time: July 26, 2020 1220 Pertinent Lab Results Pertinent Lab Results: Laboratory Tests 07/19/20 07/20/20 16:09 06:23 WBC 9.5 Hgb 11.5 L Hct 35.0 L Plt Count 181 Sodium 139 Potassium 4.2 Chloride 106 Carbon Dioxide 23 BUN 16 Creatinine 0.83 Narrative Narrative: EKG 05/2020 Normal sinus rhythm Nonspecific ST abnormality Prolonged QT Abnormal ECG When compared with ECG of 12-MAY-2020 07:40, Premature ventricular complexes are no longer Present ECHO 01/2020: LVEF 25-30% Mod MAC Mild MR Assessment and Plan Assessment Anesthesia Assessment: Chart Reviewed Documented by User: Ronaldo Campuzano MD 07/29/20 11:34 PMFSH Past Medical History Medical History Afib CHF (congestive heart failure) Chronic pain syndrome Diabetes Hepatitis C HTN (hypertension) Hyperlipidemia Nonischemic cardiomyopathy PAF (paroxysmal atrial fibrillation) PTSD (post-traumatic stress disorder) Respiratory failure Family History Family History Father Cancer Mother Cancer CVD (cardiovascular disease) Surgical History Surgical History H/O cardiac catheterization (~07/2019) H/O section H/O exploratory laparotomy H/O neck surgery Hx of hysterectomy Social History Social History Household Members: Spouse Housing: House Alcohol intake: never Smoking Status: Never smoker Advance Directives: No Advance Directives Information Provided: No Advance Directives Date on File: 05/17/20 service: No Meds Allergies Allergy/AdvReac Type Severity Reaction Status Date / Time No Known Allergies Allergy Unknown UNKNOWN Verified 07/29/20 11:21 [NO KNOWN ALLERGIES] Home Medications Medication Instructions Recorded Confirmed Type Calcium 500 + D (D3) 500 mg PO DAILY 05/12/20 07/20/20 History Eliquis 5 mg PO BID 05/12/20 07/20/20 History aspirin 81 mg PO DAILY 05/12/20 07/20/20 History bupropion HCl 150 mg PO DAILY 05/12/20 07/20/20 History magnesium oxide 800 mg PO BID 05/12/20 07/20/20 History metformin 500 mg PO BID 05/12/20 07/20/20 History potassium chloride 10 meq PO DAILY 05/12/20 07/20/20 History pravastatin 40 mg PO DAILY 05/12/20 07/20/20 History trazodone 25 mg PO BEDTIME 05/12/20 07/20/20 History carvedilol 25 mg PO DAILY 07/20/20 07/20/20 History citalopram 20 mg PO DAILY 07/20/20 07/20/20 History duloxetine 30 mg PO DAILY 07/20/20 07/20/20 History losartan 100 mg PO DAILY 07/20/20 07/20/20 History Exam Airway Mallampati Class: III TM Dist: >3cm Neck ROM: Full Denture: Upper and Lower Heart: Afib Lungs: Nonlabored Other: Resolving bruises on face, neck (left), eyes Assessment and Plan Assessment Anesthesia Assessment: Anesthesia Plan Discussed and Chart Reviewed Final Anesthetic Review NPO: Yes ASA Class: IV Final Preanesthetic Review: No Changes in Pt Med Stat, Meds/Allgs Chart Reviewed, Consent Obtained/Reviewed and Anes Risks/Benef Reviewed Patient Risk: High (Risk of hematoma, hypotension, post-op respiratory issues) Procedure Risk: Low Anesthetic Plan Anesthetic Plan: GA and Regional Block (Supraclavicular for compressibility given recent Eliquis use) Disposition: Standard PACU
[2020-07-29] VITALS (8 sets, daily range): BP systolic 131–157; BP diastolic 39–52; PULSE 67–86; RESP 14–18; TEMP 36.5–37.1; O2SAT 94–100; BMI 32.2; BMI 32.5
[2020-07-29 11:13] LABS: Glucose, Whole Blood 120 mg/dL (60-115)
[2020-07-29] MEDS: Lactated Ringers 1,000 ML 20 ML IVCONT (11:56)
--- NOTE | 2020-07-29 12:24 | FL_ITS ---
EXAMINATION: XR FLUOROSCOPY WITH IMAGES CLINICAL INFORMATION: Fractures right distal radius and distal ulnar. COMPARISON: Radiographs right wrist 07/19/2020 TECHNIQUE: Fluoroscopy performed by Dr. Deborah Ochoa. Fluoroscopy time: 63 seconds DAP: [id number] Gycm2 Images: 6 FINDINGS: The distal radial fracture is reduced with volar plate and multiple screws. Hardware is intact. Fracture fragments are in near-anatomic alignment. The distal ulnar fracture is similar in alignment. No destructive process. FL/FL guidance in OR IMPRESSION: Status post open reduction internal fixation distal radial fracture in near-anatomic alignment. Hardware intact. Ulnar fracture alignment stable.
--- NOTE | 2020-07-29 13:19 | MHC.SHP ---
Pre-Procedural Eval Section B Chief Complaint: fx of the lower right radius Allergies: Allergies Allergy/AdvReac Type Severity Reaction Status Date / Time No Known Allergies Allergy Unknown UNKNOWN Verified 07/29/20 11:21 [NO KNOWN ALLERGIES] Plan I have reviewed the history and physical and performed a pertinent physical examination on my patient. No changes have occurred unless specified.
[2020-07-29] MEDS: ceFAZolin Sodium/Dextrose,Iso 2 GM/50 ML PIGGYBACK IV (13:29)
--- NOTE | 2020-07-29 15:58 | P.OP_ITS ---
Operative Note Operative Note Date of Service: 07/29/20 Narrative: Operative Note Narrative: Preop diagnosis: 1. Right Distal radius fracture, extra-articular 2. Right distal ulna shaft fracture, minimally displaced Postop diagnosis: Same Procedure: 1. Right Distal radius fracture open reduction internal fixation 2. Right distal ulna shaft fracture non operative management Surgeon: Deborah Ochoa MD Anesthesia: Mac plus regional block Findings: Distal radius fracture, fairly distal. Long oblique distal ulna shaft fracture appeared stable on fluoroscopic imaging after fixation of the radius. DRUJ was stable Implants: A 3 hole Accu Med volar locking plate, with five 2.3 mm locking pegs/screws, and 3 3.5 mm cortical screws Tourniquet time: 52 minutes EBL: 5.0 ml Specimen: None Drains: None Complications: None Disposition: Brought to the recovery room in stable condition Plan: Follow-up in 10-14 days for wound check, suture removal and postop radiographs Closely assess the distal ulna shaft fracture at each follow-up. The patient will be placed in either a short-arm cast or a volar wrist splint. Encouraged no lifting of anything heavier than a cell phone. Please encourage active and passive range of motion of the digits. Follow-up at 4-5 weeks postop for repeat radiographs. Indications: The patient is a 80 year old woman with a displaced right distal radius fracture, and a minimally displaced oblique fracture of the distal p ortion of the ulna shaft. . The risks and benefits of operative treatment, including but not limited to risk of damage to blood vessels, nerves, tendons, infection, recurrence, persistent pain or numbness, incomplete resolution of preoperative symptoms, or need for further surgery were discussed with the patient and they wished to proceed with surgery. Procedure: Once consent was obtained patient was brought back to the operating suite and placed in the operating table in a supine position. A regional block was performed by the anesthesia team. Perioperative antibiotics and anesthesia was administered by the anesthesia team. A tourniquet was applied to the proximal aspect of the right upper extremity and the limb was prepped and draped in a standard surgical fashion. The limb was elevated exsanguinated with Esmarch bandage and the tourniquet inflated to 250 mm of mercury for a total tourniquet time of 52 minutes. The FluoroScan was used throughout the case to assess our reduction, and facilitate implant placement. A gentle closed reduction was 1st performed on the patient's right distal radius fracture. Was assessed radiographically before proceeding with the reduction internal fixation. I then made an 8 cm longitudinal incision over the distal aspect of the flexor carpi radialis tendon. The incision was made through the skin to the subcutaneous tissue using a 15. Blade. Then carefully dissected down to flexor carpi radialis tendon she tenotomy scissors. The FCR tendon sheath was then incised longitudinally using tenotomy scissors under direct visualization. The FCR tendon was then retracted ulnarly. I then made a longitudinal incision in the volar forearm fascia through the floor of FCR tendon sheath using tenotomy scissors under direct visualization. I identified the interval between the radial artery and the flexor tendons. This interval was developed further with my index finger, releasing some of the muscular fibers of the flexor pollicis longus. A dull weatlander retractor was then placed. I then created an ulnarly based flap of the pronator quadratus by releasing the radial and distal edges using a 15. Blade. A Santizo elevator was used to elevate the pronator quadratus from the volar surface of the distal radius. This then revealed to us our distal radius fracture. An open reduction was then performed on our distal radius fracture. I then placed a short narrow 3 hole Accu Med volar locking plate on the volar surface of the distal radius. I placed a single K-wire through the distal aspect of the plate and into the distal radius. This was assessed using fluoroscopic images. I was satisfied with the placement of our plate. I then placed 5 2.3 mm locking screws/pegs in the distal aspect of the plate and distal radius by 1st drilling bicortically with a 2.0 mm drill bit, measuring with a depth gauge, and placing the appropriate length locking screws/pegs. The placement of our plate and screws was then assessed again using fluoroscopic images. The once satisfied with the placement of the volar locking plate and screws on the distal aspect of the distal radius, the plate was then reduced to the shaft of the r adius. I then placed 3 3.5 mm cortical screws to the proximal aspect of the plate and into the shaft of the radius. This was done by 1st drilling bicortically with a 2.8 mm drill bit, measuring with a depth gauge, and placing the appropriate length screw. Final radiographs were then obtained. The DRUJ was assessed and found to be stable on exam. I was satisfied with our reduction and placement of all implants. A fluoroscopic exam was performed on the fracture of the distal shaft of the ulna. This was done in multiple positions of pronation through supination, and with a little torque applied to see if there was any opening up at the fracture site. The fracture appeared to be quite stable to both rotational and longitudinal stresses. I therefore decided not to treat this with an open reduction internal fixation, but rather to treat it non operatively. At this point the wound was irrigated with normal saline. The pronator quadratus was reduced back over the volar locking plate using some 3-0 Vicryl suture material. The tourniquet was then deflated and hemostasis was obtained with a brief period of local pressure and bipolar monopolar electrocautery. The subcutaneous layer was then reapproximated using some 4-0 Vicryl suture, and the skin edges were reapproximated using some 5 0 Prolene suture. The wound was then infiltrated with some 1% lidocaine with epinephrine postop pain control. A sterile dressing and a sugar-tong splint around the elbow was placed allowing for active flexion and extension of the digits was applied. The patient appears to have tolerated the procedure well and with no complications. All digits were well vascularized conclusion of the case.
--- NOTE | 2020-07-29 16:50 | HO.POSTANES ---
Post Anesthesia Evaluation Post Anesthesia Evaluation Vital Signs: Vss Anesthesia: Regional and General Endotracheal-GETA Mental Status: Awake Pain Control: Satisfactory Nausea/Vomiting: None Hydration: Adequate Anesthesia-Related Issues: No Anes. Related Issues
== END 2020-07-29 17:17 | disposition home or self-care (01) ==
PROVIDERS: PCP Family Medicine; Visit Provider Orthopaedic Surgery
PROC: (CPT 25607; principal; 2020-07-29 12:50)
DX: S52.551A Other extraarticular fracture of lower end of right radius, initial encounter for closed fracture (principal); S52.601A Unspecified fracture of lower end of right ulna, initial encounter for closed fracture; W19.XXXA Unspecified fall, initial encounter; Y93.9 Activity, unspecified; Y92.239 Unspecified place in hospital as the place of occurrence of the external cause; Y99.8 Other external cause status; I50.9 Heart failure, unspecified; I11.0 Hypertensive heart disease with heart failure; I48.0 Paroxysmal atrial fibrillation; I42.8 Other cardiomyopathies; Z79.01 Long term (current) use of anticoagulants; J96.90 Respiratory failure, unspecified, unspecified whether with hypoxia or hypercapnia; E11.9 Type 2 diabetes mellitus without complications; B19.20 Unspecified viral hepatitis C without hepatic coma; G89.4 Chronic pain syndrome; F43.10 Post-traumatic stress disorder, unspecified; Z79.84 Long term (current) use of oral hypoglycemic drugs; Z79.82 Long term (current) use of aspirin; Z79.899 Other long term (current) drug therapy
CPT/HCPCS: 25607; 82947; C1713; C1769; J0690; J1100; J2370; J2405; J3010

== ENCOUNTER 2020-08-21 11:00 | Outpatient (REF) | payer OTHER, SELFPAY ==
[2020-08-21 13:57] LABS: MANUAL DIFF FLAG NO
[2020-08-21 14:13] LABS: Basophils Absolute Auto 0.1 X10*3/uL (0.0-0.2); Basophils Percent Auto 0.8 % (0-2); Eosinophils Absolute Auto 0.3 X10*3/uL (0.0-0.4); Eosinophils Percent Auto 3.5 % (0-4); Hematocrit 36.4 % (37-47); Hemoglobin 11.8 g/dl (12.0-16.0); Imm Gran Abs Auto 0.02 X10*3/uL (0.00-0.03); Imm Gran Pct Auto 0.3 % (0.0-0.4); Lymphocytes Absolute Auto 1.5 X10*3/uL (1.2-4.9); Lymphocytes Percent Auto 19.9 % (20-40); Mean Corpuscular HGB Conc 32.4 g/dl (31.0-35.0); Mean Corpuscular Hemoglobin 30.4 pg (27.0-33.0); Mean Corpuscular Volume 93.8 fL (80-98); Mean Platelet Volume 10.5 fL (9.4-12.3); Monocytes Absolute Auto 0.8 X10*3/uL (0.1-1.2); Neutrophils Absolute Auto 4.9 X10*3/uL (2.0-8.3); Neutrophils Percent Auto 65.5 % (45-73); Platelet Count 187 X10*3/uL (160-400); Red Blood Count 3.88 X10*6/uL (4.20-5.50); White Blood Count 7.5 X10*3/uL (4.8-10.8)
[2020-08-21 14:26] LABS: Estimated Average Glucose 91 mg/dL; Hemoglobin A1c % 4.8 %
[2020-08-21 14:41] LABS: Alanine Aminotransferase 9 U/L (0-31); Albumin Level 4.1 g/dL (3.5-5.0); Alkaline Phosphatase 79 U/L (39-117); Anion Gap 12 (12-20); Aspartate Amino Transferase 13 U/L (5-31); Bilirubin Total 0.4 mg/dL (0.0-1.0); Blood Urea Nitrogen 23 mg/dL (9-16); Calcium 9.3 mg/dL (8.4-10.2); Carbon Dioxide 27 mmol/L (22-29); Chloride 104 mmol/L (96-108); Estimated Glomerular Filt Rate > 60; Glucose Random 96 mg/dL (60-115); Potassium 4.3 mmol/L (3.3-5.1); Sodium 139 mmol/L (135-145); Total Protein 6.8 g/dL (6.5-8.0)
[2020-08-21 14:47] LABS: Vitamin D 25-OH Total 36.4 ng/mL (>30)
[2020-08-21 14:51] LABS: Vitamin B12 266 pg/mL (200-900)
== END 2020-08-21 11:01 | disposition home or self-care (01) ==
LOC: HO.10HDL 11:00
PROVIDERS: Visit Provider Internal Medicine
DX: I48.0 Paroxysmal atrial fibrillation (principal); E11.9 Type 2 diabetes mellitus without complications; I11.0 Hypertensive heart disease with heart failure; I50.9 Heart failure, unspecified; E55.9 Vitamin D deficiency, unspecified; D64.9 Anemia, unspecified
CPT/HCPCS: 36415; 80053; 82306; 82607; 83036; 85025

== ENCOUNTER 2020-08-22 08:17 | Outpatient (REF) | payer MEDICARE, SELFPAY ==
--- NOTE | ~2020-08-22 | XR_ITS ---
EXAMINATION: XR WRIST, RIGHT CLINICAL INFORMATION: Right wrist pain. COMPARISON: 07/19/2020 right wrist radiographs. TECHNIQUE: PA, lateral, and oblique views of the right wrist. FINDINGS: The patient is status post distal radial ORIF showing good anatomic alignment with no evidence for hardware malfunction. There is good anatomic alignment of the distal ulnar fracture with evidence for interval healing. The carpal bones are normally aligned. Deformity in the fifth digit is not safely changed. Mild distal interphalangeal degenerative joint changes are seen. There is mild to moderate soft tissue swelling. XR/XR wrist RT min 3V IMPRESSION: 1. Distal radial good anatomic alignment without hardware abnormality. 2. Good anatomic alignment with evidence for interval healing of distal ulnar fracture. 3. Nonacute deformity in the fifth digit without significant change. 4. Mild distal interphalangeal osteoarthritis.
== END 2020-08-22 08:18 | disposition home or self-care (01) ==
LOC: HO.HOSX 08:17
PROVIDERS: PCP Family Medicine; Visit Provider Orthopaedic Surgery
DX: S52.501D Unspecified fracture of the lower end of right radius, subsequent encounter for closed fracture with routine healing (principal); S52.201D Unspecified fracture of shaft of right ulna, subsequent encounter for closed fracture with routine healing
CPT/HCPCS: 73110; 99212

== ENCOUNTER 2020-08-27 07:02 | Outpatient (REF) | payer MEDICARE, SELFPAY | END 2020-08-27 07:03 | disposition home or self-care (01) | LOC: HO.RADIR 07:02 | PROVIDERS: Visit Provider Anesthesiology | DX: Z13.89 Encounter for screening for other disorder (principal) ==

== ENCOUNTER 2020-09-18 16:18 | Outpatient (REF) | payer MEDICARE, SELFPAY ==
--- NOTE | ~2020-09-18 | XR_ITS ---
EXAMINATION: XR WRIST, RIGHT CLINICAL INFORMATION: Pain in right wrist COMPARISON: Radiographs of the wrist, most recently 08/22/2020 TECHNIQUE: PA, lateral, and oblique views of the right wrist. FINDINGS: Stable changes post operative fixation of the right distal radius fracture with associated plate and screws. There is unchanged orientation of the distal radius. Accounting for differences in projection, there is no change in the alignment of the distal ulnar fracture, though there is continued lucency along the fracture line. There is an unchanged appearance of the surgical hardware. The alignment of the carpal bones is maintained. Unchanged deformity of the fifth digit and degenerative changes of the partially visualized interphalangeal joints. XR/XR wrist RT min 3V IMPRESSION: Stable changes relating to operative fixation of right distal radius fracture. Stable alignment of distal ulnar fracture with continued lucency along the previously seen fracture line. Nonspecific, though may be suggestive of some degree of delayed healing.
== END 2020-09-18 16:19 | disposition home or self-care (01) ==
LOC: HO.HOSX 16:18
PROVIDERS: Visit Provider Orthopaedic Surgery
DX: M25.531 Pain in right wrist (principal)
CPT/HCPCS: 73110

== ENCOUNTER → 2020-09-19 09:17 | Outpatient (BNVA) | payer MEDICARE, SELFPAY | PROVIDERS: PCP Family Medicine; Visit Provider Orthopaedic Surgery | DX: S52.201D Unspecified fracture of shaft of right ulna, subsequent encounter for closed fracture with routine healing (principal); S52.501D Unspecified fracture of the lower end of right radius, subsequent encounter for closed fracture with routine healing | CPT/HCPCS: 99212 ==

== ENCOUNTER 2021-01-20 11:49 | Outpatient (REF) | payer MEDICARE, SELFPAY ==
[2021-01-20 13:22] LABS: MANUAL DIFF FLAG NO
[2021-01-20 13:26] LABS: Basophils Absolute Auto 0.1 X10*3/uL (0.0-0.2); Basophils Percent Auto 0.9 % (0-2); Eosinophils Absolute Auto 0.2 X10*3/uL (0.0-0.4); Eosinophils Percent Auto 2.8 % (0-4); Hematocrit 37.9 % (37-47); Hemoglobin 12.3 g/dl (12.0-16.0); Imm Gran Abs Auto 0.02 X10*3/uL (0.00-0.03); Imm Gran Pct Auto 0.3 % (0.0-0.4); Lymphocytes Absolute Auto 1.5 X10*3/uL (1.2-4.9); Lymphocytes Percent Auto 18.5 % (20-40); Mean Corpuscular HGB Conc 32.5 g/dl (31.0-35.0); Mean Corpuscular Hemoglobin 29.4 pg (27.0-33.0); Mean Corpuscular Volume 90.5 fL (80-98); Mean Platelet Volume 10.3 fL (9.4-12.3); Monocytes Absolute Auto 0.7 X10*3/uL (0.1-1.2); Monocytes Percent Auto 8.8 % (2-11); Neutrophils Absolute Auto 5.5 X10*3/uL (2.0-8.3); Neutrophils Percent Auto 68.7 % (45-73); Platelet Count 204 X10*3/uL (160-400); Red Blood Count 4.19 X10*6/uL (4.20-5.50); Red Cell Distribution Width 14.6 % (11.0-16.0)
[2021-01-20 13:51] LABS: Anion Gap 13 (12-20); Blood Urea Nitrogen 18 mg/dL (9-16); Calcium 9.7 mg/dL (8.4-10.2); Carbon Dioxide 30 mmol/L (22-29); Chloride 103 mmol/L (96-108); Estimated Glomerular Filt Rate 57; Glucose Random 105 mg/dL (60-115); Iron 63 mcg/dL (30-160); Potassium 4.5 mmol/L (3.3-5.1); Sodium 141 mmol/L (135-145); Unsaturated Iron Binding 268 ug/dL
[2021-01-20 13:52] LABS: Alanine Aminotransferase < 6 U/L (0-31); Albumin Level 4.1 g/dL (3.5-5.0); Alkaline Phosphatase 88 U/L (39-117); Aspartate Amino Transferase 13 U/L (5-31); Bilirubin Total 0.6 mg/dL (0.0-1.0); Percent Iron Saturation 19 % (15-50); Total Iron Binding Capacity 331 mcg/dL (228-428); Total Protein 7.1 g/dL (6.5-8.0)
[2021-01-20 13:57] LABS: Glucose Urine UA NEG (NEG); Leukocyte Esterase Urine TRACE (NEG); Nitrite Urine NEG (NEG); Specific Gravity - Urine 1.015 (1.005-1.025); Urine Blood NEG (NEG); Urine Ketones NEG (NEG); Urine Protein TRACE MG/DL (NEG-TRACE)
[2021-01-20 13:59] LABS: Appearance Urine CLEAR; Color Urine YELLOW
[2021-01-20 14:10] LABS: Estimated Average Glucose 108 mg/dL; Hemoglobin A1c % 5.4 %
[2021-01-20 14:11] LABS: RBC Urine 0 /HPF (0); Squamous Epithelial Cell Urine TRACE /LPF
[2021-01-20 14:28] LABS: Vitamin B12 280 pg/mL (200-900)
== END 2021-01-20 11:50 | disposition home or self-care (01) ==
LOC: HO.10HDL 11:49
PROVIDERS: PCP Internal Medicine; Visit Provider Internal Medicine
DX: D64.9 Anemia, unspecified (principal); M19.90 Unspecified osteoarthritis, unspecified site; E11.9 Type 2 diabetes mellitus without complications; I11.0 Hypertensive heart disease with heart failure; I50.9 Heart failure, unspecified; I48.0 Paroxysmal atrial fibrillation
CPT/HCPCS: 36415; 80053; 81001; 82043; 82607; 83036; 83540; 85025

== ENCOUNTER → 2021-02-10 10:51 | Outpatient (BNVA) | payer MEDICARE, SELFPAY | PROVIDERS: PCP Internal Medicine; Referring Provider Internal Medicine; Visit Provider Internal Medicine | DX: I42.8 Other cardiomyopathies (principal); I48.0 Paroxysmal atrial fibrillation; I47.2 Ventricular tachycardia | CPT/HCPCS: 93005; 99212 ==

== ENCOUNTER → 2021-04-04 12:30 | Outpatient (REF) | payer MEDICARE, SELFPAY ==
--- NOTE | 2021-04-04 12:41 | CA_ITS ---
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 The calculated ejection fraction is 44% by biplane method. - There is moderate mitral annular calcification. Findings Left Ventricle Normal left ventricular cavity size. There is mildly increased left ventricular wall thickness. The left ventricular systolic function is mild to moderately decreased. The calculated ejection fraction is 44% by biplane method. E/E prime ratio is between 8 and 15 consistent with indeterminate filling pressures. Evidence suggests grade I (mild) diastolic dysfunction. Right Ventricle Normal right ventricular cavity size and systolic function. Atria Both atria are normal in size. Aortic Valve The aortic valve was not well visualized. There is no aortic valve stenosis. There is no aortic valve regurgitation. Mitral Valve There is moderate mitral annular calcification. There is trace mitral valve regurgitation. There is no mitral valve stenosis. Pulmonic Valve The pulmonic valve was not well visualized. Tricuspid Valve There is mild tricuspid valve regurgitation. The pulmonary artery systolic pressure is normal. Great Vessels The aortic annulus is normal in size. Venous The inferior vena cava is normal in size and collapses greater than 50% with inspiration. Pericardium/Pleural There is no evidence of pericardial effusion. Prior Study Comparison Changes noted compared to prior study dated: 01/17/2020. Improved LVEF. Measurements 2D Linear Measurements IVSd: 1.09 0.6-0.9/0.6-1.0 cm LVIDd: 5.14 3.9-5.3/4.2-5.9 cm LVIDd Index: 2.89 2.4-3.2/2.2-3.1 cm/m2 LVIDs: 3.52 2.0-3.6 cm LVPWd: 1.03 0.7-1.1 cm Ao Root: 2.90 2.1-3.5 cm LA Diam: 3.70 2.7-3.8/3.0-4.0 cm LAIDs Index: 2.08 1.5-2.3 cm/m2 LV Mass: 256.73 67-162/88-224 g LV Mass Index: 144.23 43-95/49-115 g/m2 LVOT Diam: 2.20 3.0+(-)1.3 cm 2D Systolic Function EF 4C: 41.50 >55% EF 2C: 48.60 >55% EF BiP: 44.30 >55% Mitral Valve MV Pk E: 0.48 MV PK A: 1.07 MV Decel Time: 157.00 E/A: 0.40 E'Lateral: 5.77 E'Medial: 3.48 E/E' Med: 13.80 E/E' Lat: 8.30 PHT: 46.00 MVA PHT: 4.78 Decel Davison: 3.06 Aortic Valve AoV Pk Cl: 1.53 AoV Mn Cl: 1.12 AoV VTI: 0.28 AoV Pk Grad: 9.00 Aov Mn Grad: 6.00 YARED Cont.VTI: 2.53 LVOT LVOT Pk Cl: 0.80 LVOT Mn Cl: 0.54 LVOT VTI: 0.19 LVOT Pk Grad: 3.00 LVOT Mn Grad: 1.00 LVOT Diam: 2.20 LVOT Area: 3.80 Diastolic Function MV Pk E: 0.48 MV Pk A: 1.07 E/A: 0.40 E'Medial: 3.48 E/E' Med: 13.80 E' Laterial: 5.77 E/E' Lat: 8.30 Right Ventricle TAPSE (mm): 1.95 TVS' Cl: 10.40 Tricuspid Valve TR Pk Cl: 2.43 TR Pk Grad: 24.00 RA Press: 3.00 RVSP: 27.00 Great Vessels Aorta Ao Root-2D: 2.90 2.0-3.7 cm Ao Arch: 3.00 Updated in Other Vendor System with Status of Final Dex Nuñez MD electronically signed on 04/05/2021 11:53:48 AM with status of Final
== END ==
LOC: HO.CARD 12:30
PROVIDERS: Visit Provider Internal Medicine
DX: I42.8 Other cardiomyopathies (principal)
CPT/HCPCS: 93306

== ENCOUNTER → 2021-04-09 10:51 | Outpatient (BNVA) | payer MEDICARE, SELFPAY | PROVIDERS: PCP Internal Medicine; Referring Provider Internal Medicine; Visit Provider Internal Medicine | DX: I42.8 Other cardiomyopathies (principal); I48.0 Paroxysmal atrial fibrillation; I47.2 Ventricular tachycardia | CPT/HCPCS: 99212 ==

== ENCOUNTER 2021-04-23 11:09 | Outpatient (REF) | payer MEDICARE, SELFPAY | END 2021-04-23 11:10 | disposition home or self-care (01) | LOC: HO.MAMMO 11:09 | PROVIDERS: PCP Internal Medicine; Visit Provider Internal Medicine | DX: Z13.89 Encounter for screening for other disorder (principal) ==

== ENCOUNTER 2021-05-08 10:54 | Outpatient (REF) | payer MEDICARE, SELFPAY ==
--- NOTE | ~2021-05-08 | MM_ITS ---
EXAMINATION: MM SCREENING DIGITAL BREAST TOMOSYNTHESIS, BILATERAL CLINICAL INFORMATION: Screening. Asymptomatic. The lifetime risk of breast cancer based on the Tyrer-Cuzick Model is 1.1%. COMPARISON: Mammography: April 25, 2020 and studies dating back to December 09, 2013 TECHNIQUE: Digital breast tomosynthesis is performed in both the craniocaudal and mediolateral oblique views along with computer-aided detection (CAD). Synthesized 2D images are generated from the tomosynthesis. FINDINGS: The breasts are heterogeneously dense, which may obscure small masses (ACR BI-RADS breast composition Category c). There are no significant masses, abnormal calcifications, or other abnormalities. MM/MM tomosynthesis screening BI IMPRESSION: There are no significant changes from prior study. ASSESSMENT: BI-RADS 1: Negative RECOMMENDATION: Routine annual mammography screening. This patient's information was entered into a reminder system with a target due date for their next mammogram.
== END 2021-05-08 10:55 | disposition home or self-care (01) ==
LOC: HO.MAMMO 10:54
PROVIDERS: PCP Internal Medicine; Visit Provider Internal Medicine
DX: Z12.31 Encounter for screening mammogram for malignant neoplasm of breast (principal)
CPT/HCPCS: 77063; 77067

== ENCOUNTER 2021-06-02 12:05 | Outpatient (REF) | payer MEDICARE, SELFPAY ==
[2021-06-02 14:06] LABS: MANUAL DIFF FLAG NO
[2021-06-02 14:12] LABS: Appearance Urine HAZY; Basophils Absolute Auto 0.1 X10*3/uL (0.0-0.2); Basophils Percent Auto 0.5 % (0-2); Color Urine DK YELLOW; Eosinophils Absolute Auto 0.2 X10*3/uL (0.0-0.4); Eosinophils Percent Auto 1.5 % (0-4); Glucose Urine UA NEG (NEG); Hematocrit 38.7 % (37.0-47.0); Hemoglobin 12.9 g/dl (12.0-16.0); Imm Gran Abs Auto 0.04 X10*3/uL (0.00-0.03); Imm Gran Pct Auto 0.4 % (0.0-0.4); Leukocyte Esterase Urine 1+ (NEG); Lymphocytes Absolute Auto 1.7 X10*3/uL (1.2-4.9); Lymphocytes Percent Auto 15.9 % (20-40); Mean Corpuscular HGB Conc 33.3 g/dl (31.0-35.0); Mean Corpuscular Hemoglobin 29.6 pg (27.0-33.0); Mean Corpuscular Volume 88.8 fL (80.0-98.0); Mean Platelet Volume 11.2 fL (9.4-12.3); Monocytes Absolute Auto 1.2 X10*3/uL (0.1-1.2); Neutrophils Absolute Auto 7.7 x10*3/uL (2.0-8.3); Neutrophils Percent Auto 70.7 % (45-73); Nitrite Urine NEG (NEG); Platelet Count 178 X10*3/uL (160-400); Red Blood Count 4.36 X10*6/uL (4.20-5.50); Red Cell Distribution Width 14.1 % (11.0-16.0); Specific Gravity - Urine >= 1.030 (1.005-1.025); UACC Culture Trigger YES; Urine Blood 1+ (NEG); Urine Ketones NEG (NEG); Urine Protein 2+ MG/DL (NEG-TRACE); White Blood Count 10.8 X10*3/uL (4.8-10.8)
[2021-06-02 14:30] LABS: Estimated Average Glucose 114 mg/dL; Hemoglobin A1c % 5.6 %
[2021-06-02 14:35] LABS: Alanine Aminotransferase 8 U/L (0-31); Albumin Level 4.3 g/dL (3.5-5.0); Alkaline Phosphatase 72 U/L (39-117); Anion Gap 16 (12-20); Aspartate Amino Transferase 11 U/L (5-31); Bilirubin Total 0.5 mg/dL (0.0-1.0); Blood Urea Nitrogen 19 mg/dL (9-16); Calcium 9.6 mg/dL (8.4-10.2); Carbon Dioxide 23 mmol/L (22-29); Chloride 107 mmol/L (96-108); Estimated Glomerular Filt Rate 59; Glucose Fasting 133 mg/dL (60-99); Iron 33 mcg/dL (30-160); Percent Iron Saturation 10 % (15-50); Potassium 3.7 mmol/L (3.3-5.1); Sodium 142 mmol/L (135-145); Total Iron Binding Capacity 346 mcg/dL (228-428); Total Protein 7.2 g/dL (6.5-8.0); Unsaturated Iron Binding 313 ug/dL
[2021-06-02 14:52] LABS: Vitamin D 25-OH Total 38.8 ng/mL (>30)
[2021-06-02 14:54] LABS: Microalbum/Creatinine Ratio Ur 370.5 ug/mg cr
[2021-06-02 16:09] LABS: WBC Urine 50-75 /HPF (0-4)
[2021-06-02 16:10] LABS: Bacteria Urine 1+ /LPF; Hyaline Casts Urine 0-2 /LPF; Mucus Urine TRACE /LPF; Renal Epithelial Cells Urine TRACE /LPF; Squamous Epithelial Cell Urine 1+ /LPF; WBC Clumps Urine NOTED
== END 2021-06-02 12:06 | disposition home or self-care (01) ==
LOC: HO.10HDL 12:05
PROVIDERS: Visit Provider Internal Medicine
DX: I10 Essential (primary) hypertension (principal); E11.9 Type 2 diabetes mellitus without complications; D64.9 Anemia, unspecified; E55.9 Vitamin D deficiency, unspecified; R30.0 Dysuria; I48.0 Paroxysmal atrial fibrillation
CPT/HCPCS: 36415; 80053; 81001; 81003; 82043; 82306; 83036; 83540; 85025; 87086

== ENCOUNTER 2021-06-13 12:02 | Outpatient (REF) | payer MEDICARE, SELFPAY | END 2021-06-13 12:03 | disposition home or self-care (01) | LOC: HO.10HDLNP 12:02 | PROVIDERS: Visit Provider Internal Medicine | DX: Z13.89 Encounter for screening for other disorder (principal) ==

== ENCOUNTER 2021-06-25 12:41 | Outpatient (REF) | payer MEDICARE, SELFPAY ==
[2021-06-25 14:15] LABS: Appearance Urine HAZY; Color Urine YELLOW; Glucose Urine UA NEG (NEG); Leukocyte Esterase Urine 3+ (NEG); Nitrite Urine NEG (NEG); PH 6.5 (5.0-8.0); UACC Culture Trigger YES; Urine Blood TRACE (NEG); Urine Ketones NEG (NEG); Urine Protein TRACE MG/DL (NEG-TRACE)
[2021-06-25 14:49] LABS: Bacteria Urine 1+ /LPF; Mucus Urine 1+ /LPF; Squamous Epithelial Cell Urine 1+ /LPF
[2021-06-25 14:50] LABS: Urine Talc Crystals 1+ /LPF
== END 2021-06-25 12:42 | disposition home or self-care (01) ==
LOC: HO.10HDLNP 12:41
PROVIDERS: Visit Provider Internal Medicine
DX: R30.0 Dysuria (principal)
CPT/HCPCS: 81001; 81003; 87086

== ENCOUNTER 2021-08-11 11:50 | Outpatient (REF) | payer MEDICARE, OTHER, SELFPAY ==
[2021-08-11 14:18] LABS: Estimated Average Glucose 108 mg/dL; Hemoglobin A1c % 5.4 %
[2021-08-11 14:19] LABS: Alanine Aminotransferase 9 U/L (0-31); Albumin Level 4.4 g/dL (3.5-5.0); Alkaline Phosphatase 72 U/L (39-117); Anion Gap 16 (12-20); Aspartate Amino Transferase 18 U/L (5-31); Bilirubin Total 0.6 mg/dL (0.0-1.0); Blood Urea Nitrogen 32 mg/dL (9-16); Calcium 9.6 mg/dL (8.4-10.2); Carbon Dioxide 25 mmol/L (22-29); Chloride 103 mmol/L (96-108); Estimated Glomerular Filt Rate 37; Glucose Random 95 mg/dL (60-115); Potassium 3.9 mmol/L (3.3-5.1); Sodium 140 mmol/L (135-145); Total Protein 7.6 g/dL (6.5-8.0)
== END 2021-08-11 11:51 | disposition home or self-care (01) ==
LOC: HO.10HDL 11:50
PROVIDERS: Visit Provider Internal Medicine
DX: E11.9 Type 2 diabetes mellitus without complications (principal); I48.0 Paroxysmal atrial fibrillation; I10 Essential (primary) hypertension; K21.9 Gastro-esophageal reflux disease without esophagitis
CPT/HCPCS: 36415; 80053; 83036

== ENCOUNTER 2021-09-23 19:08 | Inpatient (IN) | payer MEDICARE, OTHER, SELFPAY ==
--- NOTE | ~2021-09-23 | CT_ITS ---
EXAMINATION: CT CHEST WITH CONTRAST CT ABDOMEN AND PELVIS WITH CONTRAST CLINICAL INFORMATION: Reason for Exam Fall. Trauma. Bleed? . COMPARISON: CT dated 09/23/2021. TECHNIQUE: Multidetector volumetric imaging was performed from the thoracic inlet through the pubic symphysis following administration of intravenous contrast material. A total of 85 mL Omnipaque 300 was administered intravenously. Sagittal and coronal images were reformatted. This CT examination was performed using dose optimization techniques as appropriate, variously including the following: *Automated exposure control *Adjustment of mA and/or kV according to patient size (this includes techniques or standardized protocols for targeted exams where dose is matched to indication/reason for exam; i.e. extremities or head) *Use of iterative reconstruction technique DOSE: 1743 mGy-cm FINDINGS: -CHEST- LUNG: Subsegmental atelectasis is again evident within the dependent portions of both lungs, more notably at the bases. No consolidation. Central airways are clear. Mild bronchial wall thickening. MEDIASTINUM: Calcific atherosclerosis in the thoracic aorta. Global cardiomegaly. Three-vessel coronary artery calcification. No pericardial effusion. No adenopathy. PERICARDIUM/PLEURA: No significant effusion. No pleural mass or thickening. CHEST WALL/AXILLA: No axillary adenopathy. There are fractures of the right second and third ribs anteriorly with cortical buckling. Additional nondisplaced fractures are suspected at the right fourth, fifth, sixth, seventh, and eighth ribs anterolaterally. No rib fractures are identified posteriorly. No appreciable left-sided rib fractures. -ABDOMEN/PELVIS- LIVER, GALLBLADDER, BILIARY TREE: The liver is normal in size, shape, and attenuation. No focal hepatic lesion or biliary ductal dilatation is present. Cholelithiasis without evidence of acute cholecystitis. Gallbladder wall is normal in thickness. PANCREAS: Normal; no mass or surrounding fluid. SPLEEN: Normal size. No focal lesion. ADRENAL GLANDS: Normal; no mass. KIDNEYS AND URETERS: Vascular calcifications are again suspected in the bilateral renal yonas. Multiple small subcentimeter foci of cortical hypoattenuation both kidneys are too small to characterized, statistically favored to correspond to cysts. No recommend imaging follow-up. Kidneys are normal in size, shape, and attenuation. No hydronephrosis, hydroureter, or calculi seen. No perinephric stranding. BLADDER: Unremarkable. GASTROINTESTINAL TRACT/ABDOMINAL WALL: Stomach, small bowel, and colon are normal in caliber. Mild colonic diverticulosis. No evidence of acute diverticulitis. The anterior wall of a loop of small bowel bowel extend into a small ventral abdominal hernia as seen on image 70/92 of series 13 and image 58/120 series 18. No evidence of strangulation or obstruction. Small fat-containing umbilical hernia. VASCULATURE: Atherosclerotic calcifications are present in the abdominal aorta and iliac arteries. No aneurysmal dilatation. LYMPH NODES: No lymphadenopathy. . PELVIC VISCERA: Uterus is not well seen, likely surgically absent. No adnexal lesions. OSSEUS STRUCTURES: There is a subtle nondisplaced perisymphyseal fracture of the right pubic bone, best seen on coronal images. No additional pubic fractures are identified. Sacrum appears intact. Diffuse idiopathic skeletal hyperostosis is present in the thoracic spine. No acute thoracic or lumbar vertebral body fractures are identified. There is prominent thoracic kyphosis. Mild to moderate multilevel degenerative disc disease in the lumbar spine. Minimal grade 1 anterolisthesis of L5 on S1. Marked facet arthropathy in the lower lumbar spine. A sacral nerve stimulator is present on the right at S3. Mild superior endplate compression at the lateral half of the L3 vertebral body is chronic. Again seen is a peripherally enhancing subcutaneous hematoma in the posterior soft tissues at the level of the proximal femur measuring 4.7 x 5 x 2.8 cm, partially included on this study. CT/CT abdomen pelvis w con IMPRESSION: 1. No evidence of acute bleed within the chest, abdomen and pelvis with the exception of a hematoma in the posterolateral subcutaneous fat at the level of the proximal femur. 2. Nondisplaced fractures of the right second through eighth ribs 3. Nondisplaced fracture of the right parasymphyseal pubic bone. No additional pelvic fractures are identified.
--- NOTE | ~2021-09-23 | CT_ITS ---
EXAMINATION: CT CHEST, ABDOMEN AND PELVIS WITHOUT IV CONTRAST CLINICAL INFORMATION: Right lower rib pain. Question fall fall. Hip fractures? COMPARISON: 07/19/2020. TECHNIQUE: Multidetector volumetric imaging was performed from the thoracic inlet through the pubic symphysis following the uneventful administration of: Oral contrast: No Intravenous contrast: None. Sagittal and coronal reformatted images were obtained on the technologist workstation. This CT examination was performed using dose optimization techniques as appropriate, variously including the following: *Automated exposure control *Adjustment of mA and/or kV according to patient size (this includes techniques or standardized protocols for targeted exams where dose is matched to indication/reason for exam; i.e. extremities or head) *Use of iterative reconstruction technique DLP [id number] FINDINGS: CHEST: LUNG: Bibasilar atelectasis. There does appear to be mild bronchial wall thickening. MEDIASTINUM: Mild to moderate cardiomegaly. Three-vessel coronary artery calcification. No pericardial effusion. No hilar or mediastinal lymphadenopathy. Normal caliber thoracic aorta. PLEURA: No significant effusion. No pleural mass or thickening. CHEST WALL/AXILLA: Severe degenerative arthrosis of the left shoulder. The right humeral head is absent, presumably sequelae of remote prior trauma. There is marked osteoarthritis of the glenoid. Mildly displaced right anterior third rib fracture nondisplaced right anterolateral fourth and fifth rib fractures. Possible right sixth rib fracture. Mildly displaced right seventh rib fracture ABDOMEN/PELVIS: The lack of intravenous contrast limits evaluation of the solid visceral organs including the liver, spleen, pancreas, and kidneys. LIVER, GALLBLADDER, AND BILIARY TREE: Limited non-contrast evaluation is normal. No gross focal hepatic lesion. Normal liver size and contour. No gross biliary ductal dilation. There are dependent gallstones in the gallbladder. No biliary ductal dilatation. No gallbladder wall thickening or pericholecystic fluid. PANCREAS: Limited non-contrast evaluation is normal. No john-pancreatic fluid. SPLEEN: Limited non-contrast evaluation is normal. ADRENAL GLANDS: Normal; no adrenal mass. KIDNEYS AND URETERS: There calcifications in the renal yonas bilaterally consistent with vascular calcifications. No hydronephrosis. GASTROINTESTINAL TRACT: Small bowel and colon are non-dilated. No bowel wall thickening. No pericolonic inflammatory changes to suggest colitis or diverticulitis. ABDOMINAL WALL: Small fat-containing umbilical hernia. LYMPH NODES: No lymphadenopathy. VASCULAR: Normal caliber aorta. Severe circumferential calcified atherosclerotic changes of the aorta. Atherosclerotic changes of the celiac, superior mesenteric, and renal artery origins. BLADDER: Unremarkable. PELVIC VISCERA: Uterus not seen likely surgically absent. No adnexal mass. OSSEOUS STRUCTURES: No acute or suspicious osseous abnormalities. Multilevel degenerative changes of the thoracolumbar spine. Severe lower lumbar facet arthropathy. Minimal grade 1 anterolisthesis of L5 on S1. There is ill-defined fluid lateral to the right hip, possibly a hematoma. No bone reconstructions were provided, which limits evaluation for fractures. There are degenerative changes of the bilateral sacroiliac joints. There is a generator pack for a right-sided sacral stimulator in the right buttock. CT/CT abdomen pelvis wo con IMPRESSION: Limited study performed without IV contrast. No high resolution bone reconstruction images available which limits evaluation for subtle fractures. Acute nondisplaced to mildly displaced right-sided rib fractures as described above. No evidence of acute traumatic injury in the abdomen or pelvis. If there is high clinical suspicion for hip fracture, considered dedicated imaging of the hips utilizing optimal technique.
--- NOTE | ~2021-09-23 | CT_ITS ---
EXAMINATION: CT HEAD WITHOUT CONTRAST CT CERVICAL SPINE WITHOUT CONTRAST CLINICAL INFORMATION: Fall. COMPARISON: CT head and cervical spine 07/19/2020 TECHNIQUE: Imaging was performed from the skull base to vertex without intravenous administration of contrast. In addition, helical noncontrast CT imaging was acquired through the cervical spine and source images were reviewed along with axial reconstructions and sagittal and coronal MPRs. [This CT examination was performed using dose optimization techniques as appropriate, variously including the following: *Automated exposure control *Adjustment of mA and/or kV according to patient size (this includes techniques or standardized protocols for targeted exams where dose is matched to indication/reason for exam; i.e. extremities or head) *Use of iterative reconstruction technique] DLP: 1383 mGy-cm FINDINGS: HEAD: No intracranial mass, hemorrhage, or midline shift is visualized. The ventricles and sulci are proportional. No extra-axial collections are identified. Small calcified osteoma in the posterior right ethmoid sinus. The visualized paranasal sinuses are normally aerated otherwise. CERVICAL SPINE: There is no evidence of acute cervical spine fracture. Vertebral bodies remain normal in height. Cervical vertebrae have normal alignment. There is multilevel degenerative spondylosis of the cervical spine with disc height narrowing and endplate spurs and facet joint arthrosis No pre- or paravertebral soft tissue abnormality is identified. Limited assessment of the lung apices is unremarkable. CT/CT cervical spine wo con IMPRESSION: 1. No acute intracranial pathology. 2. No CT evidence of acute cervical spine fracture or traumatic subluxation
--- NOTE | ~2021-09-23 | CT_ITS ---
EXAMINATION: CT HEAD WITHOUT CONTRAST CT CERVICAL SPINE WITHOUT CONTRAST CLINICAL INFORMATION: Fall. COMPARISON: CT head and cervical spine 07/19/2020 TECHNIQUE: Imaging was performed from the skull base to vertex without intravenous administration of contrast. In addition, helical noncontrast CT imaging was acquired through the cervical spine and source images were reviewed along with axial reconstructions and sagittal and coronal MPRs. [This CT examination was performed using dose optimization techniques as appropriate, variously including the following: *Automated exposure control *Adjustment of mA and/or kV according to patient size (this includes techniques or standardized protocols for targeted exams where dose is matched to indication/reason for exam; i.e. extremities or head) *Use of iterative reconstruction technique] DLP: 1383 mGy-cm FINDINGS: HEAD: No intracranial mass, hemorrhage, or midline shift is visualized. The ventricles and sulci are proportional. No extra-axial collections are identified. Small calcified osteoma in the posterior right ethmoid sinus. The visualized paranasal sinuses are normally aerated otherwise. CERVICAL SPINE: There is no evidence of acute cervical spine fracture. Vertebral bodies remain normal in height. Cervical vertebrae have normal alignment. There is multilevel degenerative spondylosis of the cervical spine with disc height narrowing and endplate spurs and facet joint arthrosis No pre- or paravertebral soft tissue abnormality is identified. Limited assessment of the lung apices is unremarkable. CT/CT head/brain wo con IMPRESSION: 1. No acute intracranial pathology. 2. No CT evidence of acute cervical spine fracture or traumatic subluxation
[2021-09-23 19:26] VITALS: BP 171/92; PULSE 75; RESP 16; TEMP 36.8; O2SAT 96; BMI 34.4
[2021-09-23 19:44] VITALS: BP 167/50; PULSE 62; RESP 16; O2SAT 95
--- NOTE | 2021-09-23 19:48 | ECG_ITS ---
Test Reason : FALL Blood Pressure : / mmHG Vent. Rate : 067 BPM Atrial Rate : 067 BPM P-R Int : 194 ms QRS Dur : 100 ms QT Int : 408 ms P-R-T Axes : 050 003 073 degrees QTc Int : 431 ms Sinus rhythm with Premature supraventricular complexes Otherwise normal ECG When compared with ECG of 19-JUL-2020 15:07, Premature supraventricular complexes are now Present QT has shortened Referred By: Joshua Dumont Electronically Signed By:Bandar Aldrich
--- NOTE | 2021-09-23 19:56 | ED_ITS ---
HPI - General Adult General Chief complaint: Fall Stated complaint: mechanical fall Time Seen by Provider: 09/23/21 21:21 Source: patient Mode of arrival: ambulatory Limitations: no limitations History of Present Illness HPI narrative: 81-year-old female with past medical nonsustained V-tach, CHF, proximal atrial f ibrillation, chronic pain syndrome presents to ED for right rib pain after fall. Patient states she was at home outside picking up branches off the ground on the grass THAT WAS WET. Patient states after picking up the branches she started to walk backwards and then lost the balance slipped and fell onto her right rib. Patient denies headache, loss of consciousness, abdominal pain, nausea, vomiting, rectal bleeding, blood in urine since incident. Related Data Home Medications Medication Instructions Recorded Confirmed Calcium 500 + D (D3) 500 mg PO DAILY 05/12/20 04/09/21 apixaban 5 mg tablet (Eliquis) 5 mg PO BID 05/12/20 04/09/21 aspirin 81 mg tablet 81 mg PO DAILY 05/12/20 04/09/21 bupropion HCl 150 mg 24 hr tablet, 150 mg PO DAILY 05/12/20 04/09/21 extended release magnesium oxide 800 mg PO BID 05/12/20 04/09/21 metformin 500 mg tablet 500 mg PO BID 05/12/20 04/09/21 potassium chloride 10 mEq 10 meq PO DAILY 05/12/20 04/09/21 tablet,extended release(part/cryst) pravastatin 40 mg tablet 40 mg PO DAILY 05/12/20 04/09/21 trazodone 50 mg tablet 25 mg PO BEDTIME 05/12/20 04/09/21 citalopram 20 mg tablet 20 mg PO DAILY 07/20/20 04/09/21 duloxetine 30 mg capsule,delayed 30 mg PO DAILY 07/20/20 04/09/21 release furosemide 20 mg tablet 20 mg PO DAILY 02/10/21 02/10/21 carvedilol 25 mg tablet 25 mg PO BID 04/09/21 04/09/21 Previous Rx's Medication Instructions Recorded hydrocodone 5 mg-acetaminophen 325 1 - 2 tab PO Q6H PRN #20 tab 07/29/20 mg tablet Allergies Allergy/AdvReac Type Severity Reaction Status Date / Time No Known Allergies Allergy Unknown UNKNOWN Verified 04/09/21 11:00 [NO KNOWN ALLERGIES] Review of Systems Review of Systems: Right rib pain Yes all other systems are reviewed and are negative [facility] Past Medical History Medical History Afib CHF (congestive heart failure) Chronic pain syndrome Diabetes Hepatitis C HTN (hypertension) Hyperlipidemia Nonischemic cardiomyopathy PAF (paroxysmal atrial fibrillation) PTSD (post-traumatic stress disorder) Respiratory failure Surgical History H/O cardiac catheterization (~07/2019) H/O section H/O exploratory laparotomy H/O neck surgery Hx of hysterectomy Family History Family History Father Cancer Mother Cancer CVD (cardiovascular disease) Social History Social History (Updated 04/09/21 @ 11:06 by TERRA Hurley) Household Members: Spouse Housing: House Do you presently have visiting nurse or other home services: Yes Alcohol intake: never Patient Tobacco Use Status: Never used Tobacco Advance Directives: Yes Advance Directives on File: Yes Advance Directives Date on File: 05/17/20 service: No Physical Exam ED Vital Signs: Vital Signs - 24 hr 09/23/21 19:26 09/23/21 19:44 09/23/21 21:20 Temperature 98.2 F Pulse Rate 75 62 78 Respiratory Rate 16 16 22 H Blood Pressure 171/92 H 167/50 H 151/64 H Pulse Oximetry 96 95 96 09/23/21 22:05 09/24/21 00:02 09/24/21 02:11 Temperature Pulse Rate 76 68 90 Respiratory Rate 22 H 18 20 Blood Pressure 165/77 H 133/51 L 154/56 H Pulse Oximetry 99 96 96 BMI result Body Mass Index 34.4 Const General: cooperative, healthy appearing, comfortable and no acute distress Orientation/consciousness: patient oriented x3 HENMT Head: Yes normal to inspection, Yes No palpable skull fracture present, Yes normocephalic, Yes atraumatic, Yes abrasion and No Acrocyanosis present Eyes General: appearance normal, both eyes and all related structures Neck Neck: Yes normal visual inspection and Yes full ROM Chest Chest palpation & inspection: normal inspection of the chest Chest/axillae images: 1. Positive for tenderness on palpation. negative for any ecchymosis, cr epitus,or deformity. positive for fungal rash under right breast Resp Effort & Inspection: normal respiratory effort and able to speak in complete s entences Auscultation: clear to auscultation bilaterally Cardio Jugular venous distension: no JVD Heart sounds: S1 normal heart sound present and S2 normal heart sound present GI Inspection: Yes normal to inspection and No abdominal wall ecchymosis Palpation (GI): Soft to palpation, not firm, nontender, no guarding and not rigid General: No CVA tenderness and Yes no CVA tenderness Back/Spine/Pelvis Back: no CVA tenderness, No CVA tenderness and No back tenderness Skin General skin exam: no rashes or lesions noted and elasticity normal Neuro General: patient oriented x3, moves all extremities and CN's II-XI intact bilaterally Cranial nerves: Yes CN's II-XII intact bilaterally Extrem General: Yes normal to inspection and Yes full ROM Psych Appearance: grossly normal, well kempt and not disheveled Course Course Course Narrative: History physical exam indicate mechanical fall due to cardiac history will do medical evaluation. Reevaluation(s) Reevaluation #1: Patient 1st troponin negative. EKG negative STEMI. Patient given morphine for pain. Patient's chest CT shows at least [address] rib fractures. Dry abdominal CT scan does not show any splenic injury but due to patient being on Eliquis and has a drop in hemoglobin/hematocrit since last ED visit will do IV contrast CT scan to make sure there is no small bleed present in abdomen from trauma. Patient is in acute kidney injury the benefits outweigh the risk due to patient being on Eliquis, drop in blood level, and multiple rib fractures. Will give IV fluids. Dr. Levine agrees with plan. Time: 23:11 Reevaluation #2: Waiting for patient's CT scan results and repeat labs. Case sign out to Dr. Llanes. Spoke with hospitalist Dr. Brink who recommends repeat labs and agree with repeat imaging. She recommends admission if pain is intractable and no improvement in kidney function. Ok ( son) [phone] Time: 02:38 Medical Decision Making MDM Narrative Medical decision making narrative: Fall. Multiple rib fractures Lab Data Result diagrams: 09/23/21 20:25 09/23/21 20:25 Labs: Lab Results 09/23/21 09/23/2109/23/22 Range/Units 20:04 20:25 20:25 WBC 9.2 (4.8-10.8) X10*3/uL RBC 3.31 L D (4.20-5.50) X10*6/uL Hgb 10.3 L D (12.0-16.0) g/dl Hct 29.7 L D (37.0-47.0) % MCV 89.7 (80.0-98.0) fL MCH 31.1 (27.0-33.0) pg MCHC 34.7 (31.0-35.0) g/dl RDW 14.9 (11.0-16.0) % Plt Count 169 (160-400) X10*3/uL MPV 10.7 (9.4-12.3) fL Immature Gran % (Auto) 0.9 H (0.0-0.4) % Neut % (Auto) 71.0 (45-73) % Lymph % (Auto) 16.7 L (20-40) % [place] % (Auto) 8.0 (2-11) % Eos % (Auto) 2.6 (0-4) % Baso % (Auto) 0.8 (0-2) % Lymph # (Auto) 1.5 (1.2-4.9) X10*3/uL [place] # (Auto) 0.7 (0.1-1.2) X10*3/uL Eos # (Auto) 0.2 (0.0-0.4) X10*3/uL Baso # (Auto) 0.1 (0.0-0.2) X10*3/uL Abs Immat Gran (auto) 0.08 H (0.00-0.03) X10*3/uL Absolute Neuts (auto) 6.5 (2.0-8.3) x10*3/uL Absolute Nucleated RBC 0.000 (0.0-0.012) X10*3/uL Nucleated RBC % (auto) 0.0 (0.0-0.2) /100WBC PT 17.3 H (9.9-13.0) SEC INR 1.5 H (0.9-1.1) APTT 37.6 (24.1-38.0) SEC Sodium (135-145) mmol/L Potassium (3.3-5.1) mmol/L Chloride (96-108) mmol/L Carbon Dioxide (22-29) mmol/L Anion Gap (12-20) BUN (9-16) mg/dL Creatinine (0.5-1.4) mg/dL Estim Creat Clear Calc Estimated GFR Random Glucose (60-115) mg/dL Calcium (8.4-10.2) mg/dL Total Bilirubin (0.0-1.0) mg/dL AST (5-31) U/L ALT (0-31) U/L Alkaline Phosphatase (39-117) U/L Total Creatine Kinase (26-140) U/L Troponin I High Sens (<3.5-17.0) ng/L B-Natriuretic Peptide (<100) pg/mL Total Protein (6.5-8.0) g/dL Albumin (3.5-5.0) g/dL Urine Color YELLOW Urine Appearance CLEAR Urine pH 5.5 (5.0-8.0) Ur Specific [place] 1.015 (1.005-1.025) Urine Protein NEG (NEG-TRACE) MG/DL Urine Glucose (UA) NEG (NEG) MG/DL Urine Ketones NEG (NEG) MG/DL Urine Blood 1+ H (NEG) Urine Nitrite NEG (NEG) Ur Leukocyte Esterase 1+ H (NEG) Urine RBC 1-4 (0) /HPF Urine WBC 5-9 H (0-4) /HPF Ur Squamous Epith Cells 2+ /LPF Urine Bacteria 3+ /LPF 09/23/21 09/23/21 Range/Units 20:25 20:25 WBC (4.8-10.8) X10*3/uL RBC (4.20-5.50) X10*6/uL Hgb (12.0-16.0) g/dl Hct (37.0-47.0) % MCV (80.0-98.0) fL MCH (27.0-33.0) pg MCHC (31.0-35.0) g/dl RDW (11.0-16.0) % Plt Count (160-400) X10*3/uL MPV (9.4-12.3) fL Immature Gran % (Auto) (0.0-0.4) % Neut % (Auto) (45-73) % Lymph % (Auto) (20-40) % [place] % (Auto) (2-11) % Eos % (Auto) (0-4) % Baso % (Auto) (0-2) % Lymph # (Auto) (1.2-4.9) X10*3/uL [place] # (Auto) (0.1-1.2) X10*3/uL Eos # (Auto) (0.0-0.4) X10*3/uL Baso # (Auto) (0.0-0.2) X10*3/uL Abs Immat Gran (auto) (0.00-0.03) X10*3/uL Absolute Neuts (auto) (2.0-8.3) x10*3/uL Absolute Nucleated RBC (0.0-0.012) X10*3/uL Nucleated RBC % (auto) (0.0-0.2) /100WBC PT (9.9-13.0) SEC INR (0.9-1.1) APTT (24.1-38.0) SEC Sodium 138 (135-145) mmol/L Potassium 5.0 D (3.3-5.1) mmol/L Chloride 104 (96-108) mmol/L Carbon Dioxide 19 L (22-29) mmol/L Anion Gap 20 (12-20) BUN 50 H D (9-16) mg/dL Creatinine 1.82 H (0.5-1.4) mg/dL Estim Creat Clear Calc 22.3 Estimated GFR 27 Random Glucose 89 (60-115) mg/dL Calcium 10.1 (8.4-10.2) mg/dL Total Bilirubin 0.6 (0.0-1.0) mg/dL AST 19 (5-31) U/L ALT 12 (0-31) U/L Alkaline Phosphatase 78 (39-117) U/L Total Creatine Kinase 64 D (26-140) U/L Troponin I High Sens 8.5 (<3.5-17.0) ng/L B-Natriuretic Peptide 118 H (<100) pg/mL Total Protein 7.2 (6.5-8.0) g/dL Albumin 4.2 (3.5-5.0) g/dL Urine Color Urine Appearance Urine pH (5.0-8.0) Ur Specific [place] (1.005-1.025) Urine Protein (NEG-TRACE) MG/DL Urine Glucose (UA) (NEG) MG/DL Urine Ketones (NEG) MG/DL Urine Blood (NEG) Urine Nitrite (NEG) Ur Leukocyte Esterase (NEG) Urine RBC (0) /HPF Urine WBC (0-4) /HPF Ur Squamous Epith Cells /LPF Urine Bacteria /LPF ECG Data Interpretation: Sinus rhythm. Reticular rate 67. Pr interval 194. QRS 100. QTC 431. Negative STEMI Discharge Plan Discharge Clinical Impression: Multiple fractures of ribs, Acute renal failure Prescriptions: No Action metformin 500 mg tablet 500 mg PO BID 0RF trazodone 50 mg tablet 25 mg PO BEDTIME 0RF potassium chloride 10 mEq tablet,ER particles/crystals 10 meq PO DAILY 0RF bupropion HCl 150 mg tablet extended release 24 hr 150 mg PO DAILY 0RF Eliquis 5 mg tablet 5 mg PO BID 0RF aspirin 81 mg Tablet 81 mg PO DAILY 0RF pravastatin 40 mg tablet 40 mg PO DAILY 0RF magnesium oxide 800 mg PO BID 0RF Calcium 500 + D (D3) 500 mg PO DAILY 0RF citalopram 20 mg tablet 20 mg PO DAILY 0RF duloxetine 30 mg capsule,delayed release(DR/EC) 30 mg PO DAILY 0RF hydrocodone-acetaminophen 5-325 mg tablet 1 - 2 tab PO Q6H PRN (Reason: pain) Qty: 20 0RF carvedilol 25 mg tablet 25 mg PO BID 0RF Rx Instructions: must administer with a meal/food furosemide 20 mg tablet 20 mg PO DAILY 0RF
[2021-09-23 20:13] LABS: Appearance Urine CLEAR; Color Urine YELLOW; Glucose Urine UA NEG (NEG); Leukocyte Esterase Urine 1+ (NEG); Nitrite Urine NEG (NEG); PH 5.5 (5.0-8.0); Specific Gravity - Urine 1.015 (1.005-1.025); UACC Culture Trigger YES; Urine Blood 1+ (NEG); Urine Ketones NEG (NEG); Urine Protein NEG (NEG-TRACE)
[2021-09-23 20:22] LABS: Bacteria Urine 3+ /LPF; Squamous Epithelial Cell Urine 2+ /LPF
[2021-09-23 20:32] LABS: MANUAL DIFF FLAG NO
[2021-09-23 20:40] LABS: Basophils Absolute Auto 0.1 X10*3/uL (0.0-0.2); Basophils Percent Auto 0.8 % (0-2); Eosinophils Absolute Auto 0.2 X10*3/uL (0.0-0.4); Eosinophils Percent Auto 2.6 % (0-4); Hematocrit 29.7 % (37.0-47.0); Hemoglobin 10.3 g/dl (12.0-16.0); Imm Gran Abs Auto 0.08 X10*3/uL (0.00-0.03); Imm Gran Pct Auto 0.9 % (0.0-0.4); Lymphocytes Absolute Auto 1.5 X10*3/uL (1.2-4.9); Lymphocytes Percent Auto 16.7 % (20-40); Mean Corpuscular HGB Conc 34.7 g/dl (31.0-35.0); Mean Corpuscular Hemoglobin 31.1 pg (27.0-33.0); Mean Corpuscular Volume 89.7 fL (80.0-98.0); Mean Platelet Volume 10.7 fL (9.4-12.3); Monocytes Absolute Auto 0.7 X10*3/uL (0.1-1.2); Neutrophils Absolute Auto 6.5 x10*3/uL (2.0-8.3); Platelet Count 169 X10*3/uL (160-400); Red Blood Count 3.31 X10*6/uL (4.20-5.50); Red Cell Distribution Width 14.9 % (11.0-16.0); White Blood Count 9.2 X10*3/uL (4.8-10.8)
[2021-09-23 20:48] LABS: INTERNATIONAL NORM RATIO 1.5 (0.9-1.1); Prothrombin Time 17.3 SEC (9.9-13.0)
[2021-09-23 20:50] LABS: Partial Thromboplastin Time 37.6 SEC (24.1-38.0)
[2021-09-23 20:54] LABS: Alanine Aminotransferase 12 U/L (0-31); Albumin Level 4.2 g/dL (3.5-5.0); Alkaline Phosphatase 78 U/L (39-117); Anion Gap 20 (12-20); Aspartate Amino Transferase 19 U/L (5-31); Bilirubin Total 0.6 mg/dL (0.0-1.0); Blood Urea Nitrogen 50 mg/dL (9-16); Calcium 10.1 mg/dL (8.4-10.2); Carbon Dioxide 19 mmol/L (22-29); Chloride 104 mmol/L (96-108); Creatinine Clr Calc Pharmacy 22.3; Estimated Glomerular Filt Rate 27; Glucose Random 89 mg/dL (60-115); Sodium 138 mmol/L (135-145); Total Protein 7.2 g/dL (6.5-8.0)
[2021-09-23 20:57] LABS: Troponin-I High Sensitivity 8.5 ng/L (<3.5-17.0)
[2021-09-23 21:20] VITALS: BP 151/64; PULSE 78; RESP 22; O2SAT 96
[2021-09-23 21:46] LABS: B Type Natriuretic Peptide 118 pg/mL (<100)
[2021-09-23 22:05] VITALS: BP 165/77; PULSE 76; RESP 22; O2SAT 99
[2021-09-23] MEDS: 0.9 % Sodium Chloride 1,000 ML 999 ML IV ×2 (22:07→23:54)
[2021-09-23] MEDS: Morphine Sulfate 2 MG/ML CARTRIDGE IVPUSH (22:09)
[2021-09-24] VITALS (10 sets, daily range): BP systolic 120–167; BP diastolic 42–88; PULSE 68–90; RESP 13–21; TEMP 36.4–37.1; O2SAT 96–100
[2021-09-24] MEDS: Morphine Sulfate 4 MG/ML CARTRIDGE IVPUSH ×3 (01:23→17:03)
[2021-09-24] MEDS: iohexoL 350 MG/ML 100 ML INFUS..BTL 85 ML IV (02:17)
[2021-09-24 02:48] LABS: Troponin-I High Sensitivity 11.1 ng/L (<3.5-17.0)
[2021-09-24] MEDS: oxyCODONE HCl Immed Release 5 MG TABLET PO (02:51)
[2021-09-24 02:57] LABS: Alanine Aminotransferase 11 U/L (0-31); Albumin Level 3.6 g/dL (3.5-5.0); Alkaline Phosphatase 63 U/L (39-117); Anion Gap 13 (12-20); Aspartate Amino Transferase 15 U/L (5-31); Bilirubin Total 0.7 mg/dL (0.0-1.0); Blood Urea Nitrogen 44 mg/dL (9-16); Calcium 8.6 mg/dL (8.4-10.2); Carbon Dioxide 20 mmol/L (22-29); Chloride 109 mmol/L (96-108); Creatinine Clr Calc Pharmacy 28.7; Estimated Glomerular Filt Rate 36; Glucose Random 92 mg/dL (60-115); Potassium 4.4 mmol/L (3.3-5.1); Sodium 138 mmol/L (135-145); Total Protein 6.1 g/dL (6.5-8.0)
--- NOTE | 2021-09-24 03:10 | PM.IMHP ---
History of Present Illness Date of Service: 09/24/21 Chief Complaint: Fall and rib fracture This is a pleasant 81-year-old female with past medical history of AFib on Eliquis, CHF, chronic pain syndrome, diabetes, hyperlipidemia, hypertension PTSD who presents to the hospital after a mechanical fall. Patient reports that she was in the backyard collecting leaves when she tripped and fell, she had the back of her head but did not lose consciousness and she immediately had significant pain in the right lower chest. She is now describing pain in the right lower chest that is 8/10, worse with deep inspiration, nonradiating, alleviated by pain medication given in the ED only IV. She denies any shortness of breath, no midsternal or left-sided chest pain, no dizziness, no headache, no change in vision, no palpitations, no abdominal pain nausea or vomiting, no diarrhea constipation, no urinary symptoms. Patient reports that he has had chronic balance problem and she is being worked up by her PCP. On arrival to the ED patient hemodynamically stable with no significant abnormal vitals placed on oxygen for comfort Labs are significant for WBC count of 9.2, hemoglobin of 10.3 which has dropped from 12.9 on 05/2021, PT of 17.3, INR of 1.5, creatinine of 1.82 with a baseline around 0.9, BNP of 118, UA positive for leukocyte Estrace and WBC. Patient's extensive imaging showed no evidence of acute bleed within the chest abdomen or pelvis with the exception of a hematoma in the posterolateral subcutaneous fat at the level of the proximal femur, nondisplaced fractures of the right 2nd through 8 ribs, nondisplaced fracture of the right parasymphyseal pubic bone with no additional pelvic fractures are identified Orthopedic surgeries consulted by ED Patient will be admitted for further evaluation and management Review of Systems Review of Systems: Yes all other systems are reviewed and are negative FOR[facility]LY [facility], [facility] Medical History Afib CHF (congestive heart failure) Chronic pain syndrome Diabetes Hepatitis C HTN (hypertension) Hyperlipidemia Nonischemic cardiomyopathy PAF (paroxysmal atrial fibrillation) PTSD (post-traumatic stress disorder) Respiratory failure Family History Father Cancer Mother Cancer CVD (cardiovascular disease) Surgical History H/O cardiac catheterization (~07/2019) H/O section H/O exploratory laparotomy H/O neck surgery Hx of hysterectomy Social History Household Members: Spouse Housing: House Do you presently have visiting nurse or other home services: Yes Alcohol intake: never Patient Tobacco Use Status: Never used Tobacco Advance Directives: Yes Advance Directives on File: Yes Advance Directives Date on File: 05/17/20 service: No Meds Allergies Allergy/AdvReac Type Severity Reaction Status Date / Time No Known Allergies Allergy Unknown UNKNOWN Verified 04/09/21 11:00 [NO KNOWN ALLERGIES] Home Medications Medication Instructions Recorded Confirmed Last Taken Type Calcium 500 + D (D3) 500 mg PO DAILY 05/12/20 09/24/21 07/19/20 History apixaban 5 mg tablet (Eliquis) 5 mg PO BID 05/12/20 09/24/21 07/27/20 History aspirin 81 mg tablet 81 mg PO DAILY 05/12/20 09/24/21 07/19/20 History bupropion HCl 150 mg 24 hr tablet, 150 mg PO DAILY 05/12/20 09/24/21 07/19/20 History extended release magnesium oxide 800 mg PO BID 05/12/20 09/24/21 07/19/20 History metformin 500 mg tablet 500 mg PO BID 05/12/20 09/24/21 07/19/20 08:00 History potassium chloride 10 mEq 10 meq PO DAILY 05/12/20 09/24/21 07/19/20 History tablet,extended release(part/cryst) pravastatin 40 mg tablet 40 mg PO DAILY 05/12/20 09/24/21 07/19/20 History trazodone 50 mg tablet 25 mg PO BEDTIME 05/12/20 09/24/21 07/19/20 History citalopram 20 mg tablet 20 mg PO DAILY 07/20/20 09/24/21 07/19/20 History duloxetine 30 mg capsule,delayed 30 mg PO DAILY 07/20/20 09/24/21 07/19/20 History release furosemide 20 mg tablet 20 mg PO DAILY 02/10/21 09/24/21 Unknown History carvedilol 25 mg tablet 25 mg PO BID 04/09/21 09/24/21 Unknown History Physical Exam Vital Signs and Narrative: Vital Signs: Last Vital Signs Temp 98.2 F 09/23/21 19:26 Pulse 90 09/24/21 02:11 Resp 20 09/24/21 02:11 BP 154/56 H 09/24/21 02:11 Pulse Ox 96 09/24/21 02:11 BMI result Body Mass Index 34.4 Const: General: cooperative and no acute distress Orientation/consciousness: patient oriented x3 Eyes: General: appearance normal, both eyes and all related structures Pupils: Equal, round and reactive pupils present Chest: Other: Tenderness in the right middle to lower chest area on palpation Resp: Effort & Inspection: normal respiratory effort Auscultation: clear to auscultation bilaterally Cardio: Rate: regular rate Rhythm: regular rhythm GI: Palpation (GI): Soft to palpation Auscultation: normal bowel sounds Skin: General skin exam: no rashes or lesions noted Neuro: General: patient oriented x3 Cranial nerves: Yes Equal, round and reactive pupils present Cognition (Neuro): normal cognition Extrem: General: Yes normal to inspection and Yes no pedal edema Results Labs CBC and Chem 7: 09/23/21 20:25 09/24/21 02:22 Labs: Laboratory Results - last 24 hr 09/23/21 09/23/21 09/23/21 20:04 20:25 20:25 MCV 89.7 MCH 31.1 MCHC 34.7 RDW 14.9 Plt Count 169 MPV 10.7 Immature Gran % (Auto) 0.9 H Neut % (Auto) 71.0 Lymph % (Auto) 16.7 L [place] % (Auto) 8.0 Eos % (Auto) 2.6 Baso % (Auto) 0.8 Lymph # (Auto) 1.5 [place] # (Auto) 0.7 Eos # (Auto) 0.2 Baso # (Auto) 0.1 Abs Immat Gran (auto) 0.08 H Absolute Neuts (auto) 6.5 Absolute Nucleated RBC 0.000 Nucleated RBC % (auto) 0.0 PT 17.3 H INR 1.5 H APTT 37.6 Anion Gap Creatinine Estim Creat Clear Calc Estimated GFR Random Glucose Calcium Total Bilirubin AST ALT Alkaline Phosphatase Total Creatine Kinase B-Natriuretic Peptide Total Protein Albumin Urine Color YELLOW Urine Appearance CLEAR Urine pH 5.5 Ur Specific Roy 1.015 Urine Protein NEG Urine Glucose (UA) NEG Urine Ketones NEG Urine Blood 1+ H Urine Nitrite NEG Ur Leukocyte Esterase 1+ H Urine RBC 1-4 Urine WBC 5-9 H Ur Squamous Epith Cells 2+ Urine Bacteria 3+ 09/23/21 09/23/21 09/24/21 20:25 20:25 02:22 MCV MCH MCHC RDW Plt Count MPV Immature Gran % (Auto) Neut % (Auto) Lymph % (Auto) [place] % (Auto) Eos % (Auto) Baso % (Auto) Lymph # (Auto) [place] # (Auto) Eos # (Auto) Baso # (Auto) Abs Immat Gran (auto) Absolute Neuts (auto) Absolute Nucleated RBC Nucleated RBC % (auto) PT INR APTT Anion Gap 20 13 Creatinine 1.82 H 1.41 H Estim Creat Clear Calc 22.3 28.7 Estimated GFR 27 36 Random Glucose 89 92 Calcium 10.1 8.6 D Total Bilirubin 0.6 0.7 AST 19 15 ALT 12 11 Alkaline Phosphatase 78 63 Total Creatine Kinase 64 D B-Natriuretic Peptide 118 H Total Protein 7.2 6.1 L Albumin 4.2 3.6 Urine Color Urine Appearance Urine pH Ur Specific Roy Urine Protein Urine Glucose (UA) Urine Ketones Urine Blood Urine Nitrite Ur Leukocyte Esterase Urine RBC Urine WBC Ur Squamous Epith Cells Urine Bacteria Imaging Radiologist's Impressions: Impressions Cervical Spine CT 09/23/21 21:03 IMPRESSION: 1. No acute intracranial pathology. 2. No CT evidence of acute cervical spine fracture or traumatic subluxation Head CT 09/23/21 21:03 IMPRESSION: 1. No acute intracranial pathology. 2. No CT evidence of acute cervical spine fracture or traumatic subluxation Abdomen/Pelvis CT 09/23/21 21:11 IMPRESSION: Limited study performed without IV contrast. No high resolution bone reconstruction images available which limits evaluation for subtle fractures. Acute nondisplaced to mildly displaced right-sided rib fractures as described above. No evidence of acute traumatic injury in the abdomen or pelvis. If there is high clinical suspicion for hip fracture, considered dedicated imaging of the hips utilizing optimal technique. Chest CT 09/23/21 21:11 IMPRESSION: Limited study performed without IV contrast. No high resolution bone reconstruction images available which limits evaluation for subtle fractures. Acute nondisplaced to mildly displaced right-sided rib fractures as described above. No evidence of acute traumatic injury in the abdomen or pelvis. If there is high clinical suspicion for hip fracture, considered dedicated imaging of the hips utilizing optimal technique. Abdomen/Pelvis CT 09/24/21 02:05 IMPRESSION: 1. No evidence of acute bleed within the chest, abdomen and pelvis with the exception of a hematoma in the posterolateral subcutaneous fat at the level of the proximal femur. 2. Nondisplaced fractures of the right second through eighth ribs 3. Nondisplaced fracture of the right parasymphyseal pubic bone. No additional pelvic fractures are identified. Chest CT 09/24/21 02:05 IMPRESSION: 1. No evidence of acute bleed within the chest, abdomen and pelvis with the exception of a hematoma in the posterolateral subcutaneous fat at the level of the proximal femur. 2. Nondisplaced fractures of the right second through eighth ribs 3. Nondisplaced fracture of the right parasymphyseal pubic bone. No additional pelvic fractures are identified. Assessment and Plan (1) Multiple fractures of ribs: Status: Acute (2) Acute renal failure: Status: Acute (3) Pubic bone fracture: Status: Acute (4) UTI (urinary tract infection): Status: Acute (5) Fall: Status: Acute (6) Hematoma: Status: Acute Plan This is an 81-year-old female with past medical history of AFib on Eliquis, CHF, hypertension hyper lipidemia presents to the hospital with complaints of fall found to have multiple rib fractures as well as pubic bone fracture # multiple fractures of ribs - secondary to mechanical fall, has significant intractable pain therefore will need admission for pain management # MELONY - appears to be dehydrated as well as have UTI - will treat with IV fluids - baseline around 0.9 - follow BMP # pubic bone fracture - will consult orthopedic surgery - pain control # hematoma - in the posterior lateral subcutaneous fat at the level the proximal femur - H&H did drop slightly from 2020 - follow H&H # UTI - asymptomatic but given fall will treat with IV antibiotics - follow cultures # fall - has a hematoma as seen on CT - PT OT # CHF - not in volume overload - will hold Lasix given MELONY - resume once her creatinine returns to baseline, - monitor for volume overload # AFib - will hold Eliquis in the setting of hematoma - resume once hemoglobin stabilizes # hypertension - stable - will resume her home medications # diabetes - hold metformin - low-dose sliding scale insulin - diabetic diet DVT prophylaxis: SCDs # given patient's hematoma, MELONY, as well as multiple rib fractures with intractable pain patient will need admission for further management evaluation as she will do poorly outpatient Quality Stroke Does the patient have a stroke diagnosis?: No VTE Prior VTE?: No VTE Risk Level:: Medical - moderate - high VTE Device Contraindication: N/A - Device Ordered VTE Drug Contraindication: Treatment Not Indicated
[2021-09-24] MEDS: Lactated Ringers 1,000 ML 100 ML IVCONT ×2 (05:07→23:41)
[2021-09-24 06:42] LABS: COVID-19 Test Negative (Negative)
[2021-09-24 07:07] LABS: Glucose, Whole Blood 73 mg/dL (60-115)
[2021-09-24] MEDS: cefTRIAXone sodium 1 GM in 0.9 % Sodium Chloride 50 ML IV (07:07)
[2021-09-24] MEDS: 0.9 % Sodium Chloride Flush 3 ML SYRINGE IVFLUSH ×2 (07:08→14:20)
--- NOTE | 2021-09-24 07:11 | PC.NURSE ---
I assumed nursing care of this pt upon her arrival to bed 4 from EMS stretcher. She presented for evaluation of R sided chest and back pain s/p mechanical fall that occured while doing yardwork. She states she was on the ground for about 20 minutes prior to EMS arrival. She did not hit her head. No LOC. No head/neck/back pain. Since she arrived she has remained alert, oriented x 3. She has persistent R sided chest and corresponding R sided back pain that started after her fall. She has been medicated for this pain twice during my shift and she experiences some mild pain relief immediately after being medicated but it doesn't last very long. I have been encouraging her to cough and deep breathe and she verbalizes an understanding, however I do not notice her practicing this often. Throughout the night her room air sat's have been WNL - 95% or better. At approximately 0600 her room air sat's decreased to 88% - 2L NC was given and her sats have improved to 95%. No cyanosis, she is speaking in full sentences, RR WNL, respirations non-labored. There has been no chest pain, no nausea or vomiting. She has been taking PO fluids without difficulty. I have spoken with the patients son Alvaro and her daughter in law who was present shortly after the patients' arrival. THe pt is TBADM and she verbalizes n understanding of this.
[2021-09-24 07:13] LABS: MANUAL DIFF FLAG NO
[2021-09-24 07:16] LABS: Basophils Percent Auto 0.4 % (0-2); Eosinophils Absolute Auto 0.2 X10*3/uL (0.0-0.4); Eosinophils Percent Auto 1.8 % (0-4); Hematocrit 33.7 % (37.0-47.0); Hemoglobin 10.6 g/dl (12.0-16.0); Imm Gran Abs Auto 0.05 X10*3/uL (0.00-0.03); Imm Gran Pct Auto 0.6 % (0.0-0.4); Lymphocytes Absolute Auto 1.6 X10*3/uL (1.2-4.9); Lymphocytes Percent Auto 18.8 % (20-40); Mean Corpuscular HGB Conc 31.5 g/dl (31.0-35.0); Mean Corpuscular Hemoglobin 30.5 pg (27.0-33.0); Mean Corpuscular Volume 97.1 fL (80.0-98.0); Mean Platelet Volume 10.3 fL (9.4-12.3); Monocytes Absolute Auto 0.8 X10*3/uL (0.1-1.2); Monocytes Percent Auto 9.8 % (2-11); Neutrophils Absolute Auto 5.9 x10*3/uL (2.0-8.3); Neutrophils Percent Auto 68.6 % (45-73); Platelet Count 170 X10*3/uL (160-400); Red Blood Count 3.47 X10*6/uL (4.20-5.50); Red Cell Distribution Width 15.1 % (11.0-16.0); White Blood Count 8.6 X10*3/uL (4.8-10.8)
[2021-09-24 07:29] LABS: Anion Gap 15 (12-20); Blood Urea Nitrogen 41 mg/dL (9-16); Calcium 9.3 mg/dL (8.4-10.2); Carbon Dioxide 20 mmol/L (22-29); Chloride 107 mmol/L (96-108); Creatinine Clr Calc Pharmacy 29.2; Estimated Glomerular Filt Rate 36; Glucose Random 81 mg/dL (60-115); Potassium 4.4 mmol/L (3.3-5.1); Sodium 138 mmol/L (135-145)
--- NOTE | 2021-09-24 07:45 | PM.EVENT ---
Event Note Date of Service: 09/24/21 Event Note: case and imaging reviewed with Dr. Frederick. CT scan reveals a right parasymphyseal pubic fracture that is nondisplaced. Patient may be WBAT with a walker. There is no further orthopedic intervention needed at this time.
[2021-09-24] MEDS: buPROPion HCl XL 150 MG TAB.ER.24H PO (08:40)
[2021-09-24] MEDS: Escitalopram Oxalate 10 MG TABLET PO (08:41)
[2021-09-24] MEDS: Magnesium Oxide 400 MG TABLET 800 MG PO ×2 (08:41→21:28)
[2021-09-24] MEDS: Pravastatin Sodium 40 MG TABLET PO (08:41)
[2021-09-24] MEDS: Calcium + Vitamin D 250 MG TABLET 500 MG PO (08:41)
--- NOTE | 2021-09-24 09:32 | PHA.MEDREC ---
Pharmacy Consult ? Medication Reconciliation Pharmacy has reviewed the medication reconciliation by Kraig. Patient has not filled carvedilol in over a year, called pharmacy to confirm. Patient does not know what duloxetine is and does not believe she is on it. Lolis Fletcher, PharmD
--- NOTE | 2021-09-24 09:48 | MHC.CM.PN ---
Met with patient in regards to discharge planning. Patient typically lives alone, ambulates with a walker and had no services prior to coming to the hospital. A family friend has been staying with patient since she has been experiencing increased falls at home. PCP verified as Dr Cavrajal. Patient received [employer] vaccines on 07/31/20 and 08/21/20. HCP verified to be on file. IMM explained and signed. Physical therapy eval completed. Short term rehab is recommended. List of facilities provided from [facility]. Patient has been to [facility] in the past and has requested referral be made there. Referral made via [employer]. Patient will need BLS transport when medically stable. Continue to monitor for d/c needs.
[2021-09-24 11:49] LABS: Glucose, Whole Blood 98 mg/dL (60-115)
--- NOTE | 2021-09-24 13:59 | PM.EVENT ---
Event Note Date of Service: 09/24/21 Event Note: This is an 81-year-old female with past medical history of AFib on Eliquis, CHF, hypertension hyper lipidemia presents to the hospital with complaints of fall found to have multiple rib fractures as well as pubic bone fracture GNR UTI asymptomatic but given fall will treat with Rocephin follow cultures multiple fractures of ribs secondary to mechanical fall, has significant intractable pain therefore will need admission for pain management MELONY. Trending down appears to be dehydrated as well as have UTI IV fluids pubic bone fracture Patient is weight-bearing as tolerated as per Orthopedic surgery Team, no operative treatment is required at this time pain control hematoma in the posterior lateral subcutaneous fat at the level the proximal femur H&H did drop slightly from 2020 follow H&H fall has a hematoma as seen on CT PT/OT, will likely need short-term rehab chronic systolic congestive heart failure not in volume overload will hold Lasix given MELONY resume once her creatinine returns to baseline, likely tomorrow monitor for volume overload chronic paroxysmal atrial fibrillation will hold Eliquis in the setting of hematoma resume once hemoglobin stabilizes hypertension stable diabetes hold metformin Sliding scale diabetic diet DVT prophylaxis: SCDs Attending Dr. Reed Full code Patient requires continued hospitalization for physical therapy evaluation in light of pubic bone fracture, intractable pain from rib fractures and IV fluids for MELONY.
[2021-09-24 16:54] LABS: Glucose, Whole Blood 146 mg/dL (60-115)
--- NOTE | 2021-09-24 19:18 | PC.NURSE ---
Pt A&OX3. Pleasant and cooperative. Speech is clear and appropriate. LS-Dim (pt unwilling to take deep breaths d/t pain). No cough or sob. Pt obese. Abd soft, non-tender. BS. Denies N/V/S. PP+. No edema. IV fluids infusing as ordered. Pt c/o 09/11 right sided pain-Tylenol given. Will continue to monitor.
[2021-09-24] MEDS: Acetaminophen 325 MG TABLET 650 MG PO (19:25)
[2021-09-24 21:26] LABS: Glucose, Whole Blood 105 mg/dL (60-115)
--- NOTE | 2021-09-24 21:31 | PC.NURSE ---
HS POC did not require insulin. HS snack given.
[2021-09-24] MEDS: traZODone HCL 25 MG HALFTAB PO (21:37)
[2021-09-25 06:00] VITALS: BP 149/62; PULSE 85; RESP 18; TEMP 36.6; O2SAT 98
[2021-09-25] MEDS: Morphine Sulfate 4 MG/ML CARTRIDGE IVPUSH ×2 (06:10→18:35)
[2021-09-25 08:09] LABS: Glucose, Whole Blood 115 mg/dL (60-115)
[2021-09-25] MEDS: cefTRIAXone sodium 1 GM in 0.9 % Sodium Chloride 50 ML IV (08:22)
[2021-09-25] MEDS: 0.9 % Sodium Chloride Flush 3 ML SYRINGE IVFLUSH (08:22)
[2021-09-25] MEDS: buPROPion HCl XL 150 MG TAB.ER.24H PO (08:23)
[2021-09-25] MEDS: Pravastatin Sodium 40 MG TABLET PO (08:23)
[2021-09-25] MEDS: Calcium + Vitamin D 250 MG TABLET 500 MG PO (08:23)
[2021-09-25] MEDS: Magnesium Oxide 400 MG TABLET 800 MG PO ×2 (08:23→21:30)
[2021-09-25] MEDS: Escitalopram Oxalate 10 MG TABLET PO (08:23)
[2021-09-25 08:53] LABS: Hemoglobin 9.5 g/dl (12.0-16.0); Mean Corpuscular HGB Conc 31.7 g/dl (31.0-35.0); Mean Corpuscular Hemoglobin 30.5 pg (27.0-33.0); Mean Corpuscular Volume 96.5 fL (80.0-98.0); Mean Platelet Volume 10.1 fL (9.4-12.3); Platelet Count 144 X10*3/uL (160-400); Red Blood Count 3.11 X10*6/uL (4.20-5.50); Red Cell Distribution Width 14.9 % (11.0-16.0); White Blood Count 7.3 X10*3/uL (4.8-10.8)
[2021-09-25 09:06] VITALS: BP 148/61; PULSE 85; RESP 17; O2SAT 96
[2021-09-25] MEDS: Lactated Ringers 1,000 ML 100 ML IVCONT (09:20)
[2021-09-25 09:21] LABS: Anion Gap 15 (12-20); Blood Urea Nitrogen 24 mg/dL (9-16); Calcium 9.5 mg/dL (8.4-10.2); Carbon Dioxide 23 mmol/L (22-29); Chloride 107 mmol/L (96-108); Estimated Glomerular Filt Rate 51; Glucose Random 117 mg/dL (60-115); Potassium 4.7 mmol/L (3.3-5.1); Sodium 140 mmol/L (135-145)
[2021-09-25] MEDS: Lidocaine 4 % Patch ADH..PATCH 1 PATCH TRANSDERMA (11:45)
[2021-09-25 13:37] LABS: Glucose, Whole Blood 96 mg/dL (60-115)
--- NOTE | 2021-09-25 13:50 | P.PNIM_ITS ---
Subjective Subjective Date of Service: 09/25/21 Interval History: Seen and examined this morning Follow-up for rib fractures sustained in fall Reporting pain with inspiration, denies shortness of breath Review of Systems Review of Systems: Yes all other systems are reviewed and are negative Constitutional Constitutional: Denies chills and Denies fever(s) Cardiovascular Cardiovascular: Denies chest pain, Denies palpitations and Denies dyspnea Respiratory Respiratory: Denies cough, Reports pain on inspiration and Denies dyspnea Endocrine Endocrine: Denies palpitations Physical Exam Vital Signs: Vital Signs: Last Vital Signs Temp 98 F 09/25/21 06:00 Pulse 85 09/25/21 09:06 Resp 17 09/25/21 09:06 BP 148/61 H 09/25/21 09:06 Pulse Ox 96 09/25/21 09:06 BMI result Body Mass Index 34.4 Const: General: cooperative, alert and awake Nutritional Appearance: overweight Orientation/consciousness: patient oriented x3 Chest: Other: tender to palp right side Resp: Other: decreased respiratory effort, lungs clear bilaterally Effort & Inspection: able to speak in complete sentences Cardio: Rate: regular rate Heart sounds: S1 normal heart sound present and S2 normal heart sound present GI: Inspection: No distended Palpation (GI): Soft to palpation and nontender Neuro: General: patient oriented x3 Extrem: Other: Able to move all 4 extremities spontaneously Objective Data Active Medications Acetaminophen (Acetaminophen 325 Mg Tablet) 650 mg PO Q6H PRN PRN Reason: Pain, Mild (Pain Scale 1-3) Last Admin: 09/24/21 19:25 Dose: 650 mg Documented by: CRISTINA Bupropion HCl (Bupropion Hcl Xl 150 Mg Tab.Er.24h) 150 mg PO DAILY COUNT INCLUDES THE [facility] Last Admin: 09/25/21 08:23 Dose: 150 mg Documented by: STANLEY Calcium Carbonate/Cholecalciferol (Calcium + Vitamin D 250 Mg Tablet) 500 mg PO DAILY COUNT INCLUDES THE [facility] Last Admin: 09/25/21 08:23 Dose: 500 mg Documented by: STANLEY Dextrose (Dextrose 50 % 25 Gm/50 Ml Vial) 25 gm IVPUSH Q15M PRN; Protocol PRN Reason: per Hypoglycemia Standing Ord. Docusate Sodium (Docusate Sodium 100 Mg Capsule) 100 mg PO DAILY PRN PRN Reason: Constipation Escitalopram Oxalate (Escitalopram Oxalate 10 Mg Tablet) 10 mg PO DAILY COUNT INCLUDES THE [facility] Last Admin: 09/25/21 08:23 Dose: 10 mg Documented by: STANLEY Glucose (Glucose Gel 15 Gm Gel..Gram.) 15 gm PO Q15M PRN; Protocol PRN Reason: per Hypoglycemia Standing Ord. Ceftriaxone Sodium 1 gm/ (Sodium Chloride) 50 mls @ 100 mls/hr IV Q24H COUNT INCLUDES THE [facility] Last Infusion: 09/25/21 09:19 Dose: 0 mls/hr Documented by: STANLEY Insulin Human Lispro (Insulin Lispro 100 Unit/Ml 3 Ml Vial) 0 unit SUBCUT QIDACHS COUNT INCLUDES THE [facility]; Protocol Last Admin: 09/25/21 13:35 Dose: Not Given Documented by: SABINO Non-Admin Reason: No Insulin Coverage Lidocaine (Lidocaine 4 % Patch Adh..Patch) 1 patch TRANSDERMA DAILY COUNT INCLUDES THE [facility]; Protocol Last Admin: 09/25/21 11:45 Dose: 1 patch Documented by: STANLEY Magnesium Oxide (Magnesium Oxide 400 Mg Tablet) 800 mg PO BID COUNT INCLUDES THE [facility] Last Admin: 09/25/21 08:23 Dose: 800 mg Documented by: STANLEY Morphine Sulfate (Morphine Sulfate 4 Mg/Ml Cartridge) 4 mg IVPUSH Q4H PRN; Protocol PRN Reason: Pain, Severe (Pain Scale 7-10) Last Admin: 09/25/21 06:10 Dose: 4 mg Documented by: CRISTINA Ondansetron HCl (Ondansetron Hcl 4 Mg/2 Ml Vial) 4 mg IVPUSH Q8H PRN PRN Reason: Nausea and Vomiting Oxycodone HCl (Oxycodone Hcl Immed Release 5 Mg Tablet) 5 mg PO Q6H PRN PRN Reason: Pain, Moderate (Pain Scale 4-6 Potassium Chloride (Potassium Chloride Er 10 Meq Capsule.Er) 10 meq PO DAILY COUNT INCLUDES THE [facility] Last Admin: 09/25/21 08:31 Dose: 10 meq Documented by: STANLEY Pravastatin Sodium (Pravastatin Sodium 40 Mg Tablet) 40 mg PO DAILY COUNT INCLUDES THE [facility] Last Admin: 09/25/21 08:23 Dose: 40 mg Documented by: STANLEY Sodium Chloride (0.9 % Sodium Chloride Flush 3 Ml Syringe) 3 ml IVFLUSH QSHIFT COUNT INCLUDES THE [facility] Last Admin: 09/25/21 08:22 Dose: 3 ml Documented by: HO.CROSBS Trazodone HCl (Trazodone Hcl 25 Mg Halftab) 25 mg PO BEDTIME BEST Last Admin: 09/24/21 21:37 Dose: 25 mg Documented by: CRISTINA Labs CBC & Chem 7: 09/25/21 08:39 09/25/21 08:39 Labs: Laboratory Results - last 24 hr 09/24/21 09/24/21 09/25/21 16:51 21:23 08:06 MCV MCH MCHC RDW Plt Count MPV Absolute Nucleated RBC Nucleated RBC % (auto) Anion Gap Estim Creat Clear Calc Estimated GFR POC Glucose 146 H 105 115 Random Glucose Calcium 09/25/21 09/25/21 09/25/21 08:39 08:39 13:33 MCV 96.5 MCH 30.5 MCHC 31.7 RDW 14.9 Plt Count 144 L MPV 10.1 Absolute Nucleated RBC 0.000 Nucleated RBC % (auto) 0.0 Anion Gap 15 Estim Creat Clear Calc 39.0 Estimated GFR 51 POC Glucose 96 Random Glucose 117 H Calcium 9.5 Microbiology Microbiology Results: Microbiology 09/23/21 20:15 Urine Culture - Final Urine clean catch - Urine paul top Escherichia coli Assessment and Plan (1) Hematoma: Status: Acute (2) Multiple fractures of ribs: Status: Acute (3) Pubic bone fracture: Status: Acute Plan This is an 81-year-old female with past medical history of AFib on Eliquis, CHF, hypertension hyper lipidemia presents to the hospital with complaints of fall found to have multiple rib fractures as well as pubic bone fracture E.coli UTI Continue IV ceftriaxone multiple fractures of ribs secondary to mechanical fall continue pain control will d/w CT surgery IS MELONY.? Resolved Creatinine improved from 1.82 to 1.04 pubic bone fracture Patient is weight-bearing as tolerated as per Orthopedic surgery Team, no operative treatment is required at this time see by PT - rec STR hematoma in the posterior lateral subcutaneous fat at the level the proximal femur H&H trending down somewhat follow H&H fall has a hematoma as seen on CT PT rec short-term rehab chronic systolic congestive heart failure not in volume overload will hold Lasix, aldactone given MELONY resume once her creatinine returns to baseline, likely tomorrow monitor for volume overload chronic paroxysmal atrial fibrillation will hold Eliquis in the setting of hematoma resume once hemoglobin stabilizes hypertension stable diabetes hold metformin Sliding scale diabetic diet DVT prophylaxis: SCDs Attending Dr. Reed Full code Patient? requires continued hospitalization? for physical therapy evaluation in light of pubic bone fracture, intractable pain from rib fractures and IV fluids for MELONY. Dispo: to STR possibly by tomorrow if pain is under control Quality Stroke Does the patient have a stroke diagnosis?: No VTE Prior VTE?: No VTE Risk Level:: Medical - moderate - high VTE Device Contraindication: N/A - Device Ordered VTE Drug Contraindication: Treatment Not Indicated
[2021-09-25 16:36] VITALS: BP 159/99; PULSE 93; RESP 16; TEMP 36.2; O2SAT 94
[2021-09-25 16:53] LABS: Glucose, Whole Blood 114 mg/dL (60-115)
--- NOTE | 2021-09-25 16:59 | PC.NURSE ---
PATIENT WAS INC ,BEDDING WAS CHANGE ,BED BATH WAS GIVEN .
[2021-09-25 18:12] VITALS: BP 196/85; PULSE 84; RESP 18; TEMP 36.6; O2SAT 98
[2021-09-25 19:24] VITALS: BP 160/72; PULSE 90; RESP 18; TEMP 36.7; O2SAT 98
[2021-09-25 20:08] LABS: Glucose, Whole Blood 94 mg/dL (60-115)
[2021-09-25] MEDS: traZODone HCL 25 MG HALFTAB PO (21:30)
[2021-09-25 23:53] VITALS: BP 139/76; PULSE 102; RESP 19; TEMP 36.4; O2SAT 97
[2021-09-26] VITALS (7 sets, daily range): BP systolic 117–177; BP diastolic 58–90; PULSE 68–99; RESP 18–19; TEMP 36.1–36.6; O2SAT 91–97
[2021-09-26 06:06] LABS: Hematocrit 32.5 % (37.0-47.0); Hemoglobin 10.7 g/dl (12.0-16.0); Mean Corpuscular HGB Conc 32.9 g/dl (31.0-35.0); Mean Corpuscular Hemoglobin 30.8 pg (27.0-33.0); Mean Corpuscular Volume 93.7 fL (80.0-98.0); Mean Platelet Volume 10.5 fL (9.4-12.3); Platelet Count 145 X10*3/uL (160-400); Red Blood Count 3.47 X10*6/uL (4.20-5.50); Red Cell Distribution Width 14.4 % (11.0-16.0); White Blood Count 8.8 X10*3/uL (4.8-10.8)
[2021-09-26 07:10] LABS: Glucose, Whole Blood 118 mg/dL (60-115)
[2021-09-26] MEDS: cefTRIAXone sodium 1 GM in 0.9 % Sodium Chloride 50 ML IV (07:34)
[2021-09-26] MEDS: Magnesium Oxide 400 MG TABLET 800 MG PO ×2 (07:39→20:28)
[2021-09-26] MEDS: Calcium + Vitamin D 250 MG TABLET 500 MG PO (07:39)
[2021-09-26] MEDS: Escitalopram Oxalate 10 MG TABLET PO (07:40)
[2021-09-26] MEDS: Pravastatin Sodium 40 MG TABLET PO (07:40)
[2021-09-26] MEDS: oxyCODONE HCl Immed Release 5 MG TABLET PO (07:40)
[2021-09-26] MEDS: buPROPion HCl XL 150 MG TAB.ER.24H PO (07:41)
[2021-09-26] MEDS: 0.9 % Sodium Chloride Flush 3 ML SYRINGE IVFLUSH ×2 (07:41→15:35)
[2021-09-26] MEDS: Lidocaine 4 % Patch ADH..PATCH 1 PATCH TRANSDERMA (07:42)
[2021-09-26] MEDS: polyethylene glycoL 3350 17 GM POWD.PACK PO (09:58)
[2021-09-26 11:16] LABS: Glucose, Whole Blood 195 mg/dL (60-115)
--- NOTE | 2021-09-26 11:27 | HO.PM.IMPN ---
Subjective Subjective Date of Service: 09/26/21 Interval History: Seen and examined this morning Still having pain with inspiration no coughing, does not feel short of breath Review of Systems Review of Systems: Yes all other systems are reviewed and are negative Constitutional Constitutional: Denies chills and Denies fever(s) Cardiovascular Cardiovascular: Denies chest pain, Denies palpitations and Denies dyspnea Respiratory Respiratory: Denies cough, Reports pain on inspiration and Denies dyspnea Gastrointestinal Gastrointestinal: Denies abdominal pain, Denies nausea and Denies vomiting Endocrine Endocrine: Denies palpitations Physical Exam Vital Signs: Vital Signs: Last Vital Signs Temp 97 F 09/26/21 11:06 Pulse 93 09/26/21 11:06 Resp 18 09/26/21 11:06 BP 117/65 09/26/21 11:06 Pulse Ox 91 L 09/26/21 11:06 BMI result Body Mass Index 34.4 Const: General: cooperative, alert and awake Nutritional Appearance: overweight Orientation/consciousness: patient oriented x3 Chest: Other: tender to palp right side Resp: Other: decreased respiratory effort, lungs clear bilaterally Effort & Inspection: able to speak in complete sentences Cardio: Rate: regular rate Heart sounds: S1 normal heart sound present and S2 normal heart sound present GI: Inspection: No distended Palpation (GI): Soft to palpation and nontender Neuro: General: patient oriented x3 Extrem: Other: Able to move all 4 extremities spontaneously Objective Data Active Medications Acetaminophen (Acetaminophen 325 Mg Tablet) 975 mg PO TID [facility] Bupropion HCl (Bupropion Hcl Xl 150 Mg Tab.Er.24h) 150 mg PO DAILY [facility] Last Admin: 09/26/21 07:41 Dose: 150 mg Documented by: SAUL Calcium Carbonate/Cholecalciferol (Calcium + Vitamin D 250 Mg Tablet) 500 mg PO DAILY [facility] Last Admin: 09/26/21 07:39 Dose: 500 mg Documented by: SAUL Dextrose (Dextrose 50 % 25 Gm/50 Ml Vial) 25 gm IVPUSH Q15M PRN; Protocol PRN Reason: per Hypoglycemia Standing Ord. Docusate Sodium (Docusate Sodium 100 Mg Capsule) 100 mg PO BEDTIME [facility] Escitalopram Oxalate (Escitalopram Oxalate 10 Mg Tablet) 10 mg PO DAILY [facility] Last Admin: 09/26/21 07:40 Dose: 10 mg Documented by: SAUL Glucose (Glucose Gel 15 Gm Gel..Gram.) 15 gm PO Q15M PRN; Protocol PRN Reason: per Hypoglycemia Standing Ord. Ceftriaxone Sodium 1 gm/ (Sodium Chloride) 50 mls @ 100 mls/hr IV Q24H [facility] Last Infusion: 09/26/21 08:11 Dose: 100 mls/hr Documented by: SAUL Insulin Human Lispro (Insulin Lispro 100 Unit/Ml 3 Ml Vial) 0 unit SUBCUT QIDACHS [facility]; Protocol Last Admin: 09/26/21 07:26 Dose: Not Given Documented by: SAUL Non-Admin Reason: No Insulin Coverage Lidocaine (Lidocaine 4 % Patch Adh..Patch) 1 patch TRANSDERMA DAILY [facility]; Protocol Last Admin: 09/26/21 07:42 Dose: 1 patch Documented by: SAUL Magnesium Oxide (Magnesium Oxide 400 Mg Tablet) 800 mg PO BID [facility] Last Admin: 09/26/21 07:39 Dose: 800 mg Documented by: SAUL Morphine Sulfate (Morphine Sulfate 4 Mg/Ml Cartridge) 4 mg IVPUSH Q4H PRN; Protocol PRN Reason: Pain, Severe (Pain Scale 7-10) Last Admin: 09/25/21 18:35 Dose: 4 mg Documented by: JOE Ondansetron HCl (Ondansetron Hcl 4 Mg/2 Ml Vial) 4 mg IVPUSH Q8H PRN PRN Reason: Nausea and Vomiting Oxycodone HCl (Oxycodone Hcl Immed Release 5 Mg Tablet) 5 mg PO Q6H PRN PRN Reason: Pain, Moderate (Pain Scale 4-6 Last Admin: 09/26/21 07:40 Dose: 5 mg Documented by: SAUL Polyethylene Glycol (Polyethylene Glycol 3350 17 Gm Powd.Pack) 17 gm PO DAILY [facility] Last Admin: 09/26/21 09:58 Dose: 17 gm Documented by: SAUL Pravastatin Sodium (Pravastatin Sodium 40 Mg Tablet) 40 mg PO DAILY [facility] Last Admin: 09/26/21 07:40 Dose: 40 mg Documented by: SAUL Sodium Chloride (0.9 % Sodium Chloride Flush 3 Ml Syringe) 3 [facility] Last Admin: 09/26/21 07:41 Dose: 3 ml Documented by: SAUL Trazodone HCl (Trazodone Hcl 25 Mg Halftab) 25 mg PO BEDTIME [facility] Last Admin: 09/25/21 21:30 Dose: 25 mg Documented by: KANDICE Labs CBC & Chem 7: 09/26/21 05:34 09/25/21 08:39 Labs: Laboratory Results - last 24 hr 09/25/21 09/25/21 09/25/21 13:33 16:48 19:28 MCV MCH MCHC RDW Plt Count MPV Absolute Nucleated RBC Nucleated RBC % (auto) POC Glucose 96 114 94 09/26/21 09/26/21 09/26/21 05:34 07:04 11:06 MCV 93.7 MCH 30.8 MCHC 32.9 RDW 14.4 Plt Count 145 L MPV 10.5 Absolute Nucleated RBC 0.000 Nucleated RBC % (auto) 0.0 POC Glucose 118 H 195 H Microbiology Microbiology Results: Microbiology 09/23/21 20:15 Urine Culture - Final Urine clean catch - Urine paul top Escherichia coli Assessment and Plan (1) Hematoma: Status: Acute (2) Multiple fractures of ribs: Status: Acute Plan This is an 81-year-old female with past medical history of AFib on Eliquis, CHF, hypertension hyper lipidemia presents to the hospital with complaints of fall found to have multiple rib fractures as well as pubic bone fracture E.coli UTI Continue IV ceftriaxone multiple fractures of ribs secondary to mechanical fall d/w CT surgery, no intervention required continue IS continue morphine, oxycodone, lidocaine patch will add scheduled tylenol MELONY.? Resolved Creatinine improved from 1.82 to 1.04 pubic bone fracture Patient is weight-bearing as tolerated as per Orthopedic surgery Team, no operative treatment is required at this time see by PT - rec STR hematoma in the posterior lateral subcutaneous fat at the level the proximal femur H&H stable fall has a hematoma as seen on CT PT rec short-term rehab chronic systolic congestive heart failure no acute exacerbation Lasix, aldactone initially held for MELONY - will resume now that renal function has improved. monitor for volume overload chronic paroxysmal atrial fibrillation will hold Eliquis in the setting of hematoma resume once hemoglobin stabilizes hypertension stable diabetes hold metformin Sliding scale diabetic diet DVT prophylaxis: SCDs Attending Dr. Reed Full code Patient? requires continued hospitalization?for physical therapy evaluation in light of pubic bone fracture, intractable pain from rib fractures Dispo: to STR possibly by tomorrow if pain is under control Quality Stroke Does the patient have a stroke diagnosis?: No VTE Prior VTE?: No VTE Risk Level:: Medical - moderate - high VTE Device Contraindication: N/A - Device Ordered VTE Drug Contraindication: Treatment Not Indicated
[2021-09-26] MEDS: Insulin Lispro 100 UNIT/ML 3 ML VIAL SUBCUT (11:51)
--- NOTE | 2021-09-26 12:47 | P.CDIC_ITS ---
CDI Concurrent Query Documentation Clarification: PHYSICIAN'S DOCUMENTATION REQUEST Date of Query: 09/26/21 1248 Patient Name: Flor Coker Admit Date: 09/24/21 Dear Doctor, A review of the medical record indicates additional documentation may be needed. Please review below and update the documentation accordingly. Risk Factors/Clinical Indicators/Treatments Chest CT 09/24/21: No evidence of acute bleed within the chest, abdomen and pelvis with the exception of a hematoma in the posterolateral subcutaneous fat at the level of the proximal femur. Based on the above, could you clarify in the Progress Notes the appropriate diagnosis, if significant, that supports the above abnormalities and additional evaluation, monitoring, and/or treatment rendered: * Hematoma in the posterolateral subcutaneous fat at the level of the proximal left femur * Hematoma in the posterolateral subcutaneous fat at the level of the proximal right femur * Other (please specify) * Unable to determine Use of terms such as suspected, likely, concern for, or probable (associated with a specific diagnosis that is being evaluated, monitored, or treated as if it exists) are acceptable and can be coded in the inpatient setting, when documented at the time of discharge. Thank you, Britt Andrade RN Extension: [phone] Please use your independent medical judgment in providing your response. THIS QUERY IS PART OF THE PERMANENT MEDICAL RECORD Provider Response: Other Other Diagnosis: CT scan does not specify. unable to determine
[2021-09-26] MEDS: Acetaminophen 325 MG TABLET 975 MG PO ×2 (15:34→20:28)
[2021-09-26 15:55] LABS: Glucose, Whole Blood 91 mg/dL (60-115)
[2021-09-26 19:52] LABS: Glucose, Whole Blood 146 mg/dL (60-115)
[2021-09-26] MEDS: Furosemide 20 MG TABLET PO (20:28)
[2021-09-26] MEDS: traZODone HCL 25 MG HALFTAB PO (20:29)
[2021-09-26] MEDS: Docusate Sodium 100 MG CAPSULE PO (20:29)
[2021-09-26] MEDS: Nystatin Powder 15 GM BOTTLE 1 APPL TOPICAL (22:17)
[2021-09-27 03:22] VITALS: BP 148/69; PULSE 72; RESP 18; TEMP 36.4; O2SAT 96
[2021-09-27 06:59] VITALS: BP 152/79; PULSE 73; RESP 20; TEMP 36; O2SAT 97
[2021-09-27 07:08] LABS: Glucose, Whole Blood 98 mg/dL (60-115)
[2021-09-27] MEDS: Pravastatin Sodium 40 MG TABLET PO (07:27)
[2021-09-27] MEDS: Escitalopram Oxalate 10 MG TABLET PO (07:28)
[2021-09-27] MEDS: Furosemide 20 MG TABLET PO (07:28)
[2021-09-27] MEDS: Calcium + Vitamin D 250 MG TABLET 500 MG PO (07:28)
[2021-09-27] MEDS: Acetaminophen 325 MG TABLET 975 MG PO (07:29)
[2021-09-27] MEDS: Magnesium Oxide 400 MG TABLET 800 MG PO (07:29)
[2021-09-27] MEDS: cefTRIAXone sodium 1 GM in 0.9 % Sodium Chloride 50 ML IV (07:31)
[2021-09-27] MEDS: buPROPion HCl XL 150 MG TAB.ER.24H PO (07:31)
[2021-09-27] MEDS: 0.9 % Sodium Chloride Flush 3 ML SYRINGE IVFLUSH ×2 (07:31)
[2021-09-27] MEDS: Spironolactone 25 MG TABLET PO (07:32)
[2021-09-27] MEDS: polyethylene glycoL 3350 17 GM POWD.PACK PO (07:32)
[2021-09-27] MEDS: Nystatin Powder 15 GM BOTTLE 1 APPL TOPICAL (07:32)
[2021-09-27] MEDS: Lidocaine 4 % Patch ADH..PATCH 1 PATCH TRANSDERMA (07:33)
[2021-09-27 09:31] VITALS: O2SAT 92
[2021-09-27 11:09] VITALS: BP 142/70; PULSE 77; RESP 20; TEMP 36.1; O2SAT 92
[2021-09-27 11:22] LABS: Glucose, Whole Blood 160 mg/dL (60-115)
--- NOTE | 2021-09-27 12:11 | PM.DS ---
DS: Providers Provider Date of Service: 09/27/21 Date of admission: 09/24/21 03:08 Date of discharge: 09/27/21 Primary care physician: Nilo Carvajal MD Consults: 09/24/21 06:45 Consult to Orthopedics Routine Consulting Provider: Uriel Frederick Reason for consultation: multiple fx Has provider been notified: Yes Attending physician on discharge: Ashley Hartley Discharging clinician: Keisha Ya DS: Diagnosis Discharge Diagnosis (1) Hematoma: Status: Acute (2) Multiple fractures of ribs: Status: Acute (3) Pubic bone fracture: Status: Acute (4) Acute renal failure: Status: Acute (5) UTI (urinary tract infection): Status: Acute (6) Fall: Status: Acute DS: Summary Hospital Course Hospital Course: From H&P on day of admission This is a pleasant 81-year-old female with past medical history of AFib on Eliquis, CHF, chronic pain syndrome, diabetes, hyperlipidemia, hypertension PTSD who presents to the hospital after a mechanical fall.? Patient reports that she was in the backyard collecting leaves when she tripped and fell, she had the back of her head but did not lose consciousness and she immediately had significant pain in the right lower chest.? She is now describing pain in the right lower chest that is 8/10, worse with deep inspiration, nonradiating, alleviated by pain medication given in the ED only IV.? She denies any shortness of breath, no midsternal or left-sided chest pain, no dizziness, no headache, no change in vision, no palpitations, no abdominal pain nausea or vomiting, no diarrhea constipation, no urinary symptoms.? Patient reports that he has had chronic balance problem and she is being worked up by her PCP.? On arrival to the ED patient hemodynamically stable with no significant abnormal vitals placed on oxygen for comfort Labs are significant for WBC count of 9.2, hemoglobin of 10.3 which has dropped from 12.9 on 05/2021, PT of 17.3, INR of 1.5, creatinine of 1.82 with a baseline around 0.9, BNP of 118, UA positive for leukocyte Estrace and WBC. Patient's extensive imaging showed no evidence of acute bleed within the chest abdomen or pelvis with the exception of a hematoma in the posterolateral subcutaneous fat at the level of the proximal femur, nondisplaced fractures of the right 2nd through 8 ribs, nondisplaced fracture of the right parasymphyseal pubic bone with no additional pelvic fractures are identified Orthopedic surgeries consulted by ED Urinalysis was consistent with UTI. She was started on IV ceftriaxone. Urine cultures returned with pain pansensitive E coli. She will be discharged to complete course of Ceftin. Multiple fractures of ribs secondary to mechanical fall. Right ribs 2-8 noted to have nondisplaced fracturs on CT imaging. Given number of rib fractures, discussed with thoracic surgery, but no intervention required. She was initially treated with IV narcotics, she was able to be transitioned to oral oxycodone, Tylenol and Lidoderm patch with good pain control. She has not required IV narcotics since of 09/25. MELONY.? Resolved Creatinine improved from 1.82 to 1.04 and is currently near baseline, pubic bone fracture. Patient is weight-bearing as tolerated with walker as per Orthopedic surgery Team, no operative treatment is required at this time. She was seen by PT who recommended STR hematoma. CT scan of the abdomen showed hematoma in the posterior lateral subcutaneous fat at the level the proximal femur. Eliquis was placed on hold. H&H has remained stable. Recommend to hold Eliquis for total 1 week, to resume 10/01 if no evidence of bleeding noted. Recommend to check CBC after resuming anticoagulation and monitor for signs of bleeding. Aspirin was also placed on hold. chronic systolic congestive heart failure. she has remained euvolemic. no acute exacerbation. Lasix, aldactone initially held for MELONY and were resumed at home doses once renal function returned to baseline. chronic paroxysmal atrial fibrillation. Eliquis was placed on hold as above. Time Spent with Patient Time attestation: Total time spent providing and/or coordinating discharge services: Discharge coordination time: Greater than 30 minutes Quality: Stroke Does the patient have a stroke diagnosis?: No Physical Exam Vital Signs: Vital Signs: Last Vital Signs Temp 97 F 09/27/21 11:09 Pulse 77 09/27/21 11:09 Resp 20 09/27/21 11:09 BP 142/70 H 09/27/21 11:09 Pulse Ox 92 09/27/21 11:09 BMI result Body Mass Index 34.4 Const: General: cooperative, alert and awake Nutritional Appearance: overweight Chest: Other: tender to palp right side Resp: Other: decreased respiratory effort, lungs clear bilaterally Effort & Inspection: able to speak in complete sentences Cardio: Rate: regular rate Heart sounds: S1 normal heart sound present and S2 normal heart sound present GI: Inspection: No distended Palpation (GI): Soft to palpation and nontender Extrem: Other: Able to move all 4 extremities spontaneously DS: Data Data Completed and Pending Labs on day of discharge: Laboratory Results - last 24 hr 09/26/21 09/26/21 09/27/21 15:37 19:31 07:00 POC Glucose 91 146 H 98 09/27/21 11:09 POC Glucose 160 H Discharge Plan Discharge Patient Disposition: Xfer SNF Discharge Diagnosis: mechanical fall rib fractures pubic bone fracture MELONY Referrals: [facility] [Outside] - 1 Week Nilo Carvajal MD [Primary Care Provider] - 1 Week Discharge Medications: New cefuroxime axetil 250 mg tablet 250 mg PO BID 3 Days Qty: 6 0RF oxycodone 5 mg tablet 5 mg PO Q6H PRN (Reason: pain) Qty: 20 0RF lidocaine [Lidoderm] 5 % adhesive patch,medicated 1 patch topical DAILY Qty: 30 0RF Rx Instructions: leave on most painful area for up to 12 hrs docusate sodium [Colace] 100 mg capsule 100 mg PO DAILY 30 Days Qty: 30 0RF (DME) Ultra-Light Rollator Misc See Rx Instructions .Route Qty: 1 0RF Rx Instructions: As directed Continued trazodone 50 mg tablet 25 mg PO BEDTIME 0RF potassium chloride 10 mEq tablet,ER particles/crystals 10 meq PO DAILY 0RF bupropion HCl 150 mg tablet extended release 24 hr 150 mg PO DAILY 0RF pravastatin 40 mg tablet 40 mg PO DAILY 0RF magnesium oxide 800 mg PO BID 0RF Calcium 500 + D (D3) 500 mg PO DAILY 0RF citalopram 20 mg tablet 20 mg PO DAILY 0RF spironolactone 25 mg tablet 1 tab PO DAILY 0RF furosemide 20 mg tablet 20 mg PO BID 0RF Held Eliquis 5 mg tablet 5 mg PO BID 0RF Hold Instructions: hold for 1 week, hold hold starting 09/24; can resume 10/01 if no evidence of bleeding aspirin 81 mg Tablet 81 mg PO DAILY 0RF Hold Instructions: hold for 1 week; on hold since 09/24, resume 10/01 if no evidence of bleeding and clear indication to continue aspirin Discharge Orders: Discharge Order (Routine); Ordered 09/27/21 Ordered By: Keisha Ya Activity on Discharge: As tolerated Stand Alone Forms: Patient Portal Discharge page Care Plan Goals: see below Health Concerns: UTI multiple rib fractures pubic bone fracture hematoma MELONY - resolved Plan of Treatment: E. coli UTI - complete course of antibiotics - Ceftin for 3 more days Hematoma: On Eliquis for atrial fibrillation. Hold Eliquis, aspirin for total 1 week, initially held 09/24; can resume 10/01 if no evidence of bleeding (was placed on hold due to hematoma in the posteriorlateral subq fat at the level of the proximal femur). Recommend to follow H/H after resumption of anticoagulation. pubic bone fracture - weight bearing as tolerated with walker Multiple rib fractures- incentive spirometry every 2 hours while awake; Lidoderm patch to right chest wall; oxycodone every 6 hours as needed for pain; scheduled Tylenol for the next few days. supplemental oxygen as needed, wean as tolerated Assessment: see discharge summary Discharge Date/Time: 09/27/21 16:07
[2021-09-27] MEDS: ondansetron HCL 4 MG/2 ML VIAL IVPUSH (12:34)
--- NOTE | 2021-09-27 12:54 | MHC.CM.PN ---
CULLEN CALLED PTS SON, SREE ([phone]) TO DISCUSS DC PLAN HE IS AWARE PT WILL GO TO [facility] TODAY FOR STR SHE WILL BE TRANSPORT VIA BLS @ 1500 HOURS SREE ALSO REQUESTED A REFERRAL BE MADE TO [facility] TO FOLLOW FOR POST REHAB SERVICES INFORMATION WAS ALSO PROVIDED ABOUT OBTAINING A HOSPITAL BED FOR THE PT @ [facility] REQUEST
[2021-09-27] MEDS: oxyCODONE HCl Immed Release 5 MG TABLET PO (13:39)
== END 2021-09-27 16:07 | disposition skilled nursing facility (03) | DRG 184 ==
LOC: HO.ED 09-24 03:10 → HO.EDOVER 09-24 03:17 → HO.S3 09-25 17:05
PROVIDERS: Nurse Practitioner Acute Care; Physician Assistant; Admitting Provider Internal Medicine; Emergency Provider Internal Medicine; PCP Internal Medicine; Visit Provider Physician Assistant Medical
DX: S22.41XA Multiple fractures of ribs, right side, initial encounter for closed fracture (principal); S32.501A Unspecified fracture of right pubis, initial encounter for closed fracture; N17.9 Acute kidney failure, unspecified; I50.22 Chronic systolic (congestive) heart failure; S70.11XA Contusion of right thigh, initial encounter; W01.0XXA Fall on same level from slipping, tripping and stumbling without subsequent striking against object, initial encounter; I48.0 Paroxysmal atrial fibrillation; B96.20 Unspecified Escherichia coli [E. coli] as the cause of diseases classified elsewhere; I11.0 Hypertensive heart disease with heart failure; E11.9 Type 2 diabetes mellitus without complications; G89.4 Chronic pain syndrome; Z20.822 Contact with and (suspected) exposure to COVID-19; Z79.82 Long term (current) use of aspirin; Z79.01 Long term (current) use of anticoagulants; Z79.899 Other long term (current) drug therapy
CPT/HCPCS: 36415; 70450; 71250; 71260; 72125; 74176; 74177; 80048; 80053; 81001; 82550; 82947; 83880; 84484; 85025; 85027; 85610; 85730; 87086; 87088; 87186; 87635; 93005; 96361; 96374; 96376; 97110; 97116; 97162; 99285; J0696; J2270; J2405; Q9967

== ENCOUNTER 2021-11-17 11:59 | Outpatient (REF) | payer MEDICARE, SELFPAY ==
[2021-11-17 13:33] LABS: MANUAL DIFF FLAG NO
[2021-11-17 13:37] LABS: Basophils Percent Auto 0.5 % (0-2); Eosinophils Absolute Auto 0.2 X10*3/uL (0.0-0.4); Eosinophils Percent Auto 2.1 % (0-4); Hematocrit 34.6 % (37.0-47.0); Hemoglobin 11.3 g/dl (12.0-16.0); Imm Gran Abs Auto 0.03 X10*3/uL (0.00-0.03); Imm Gran Pct Auto 0.4 % (0.0-0.4); Lymphocytes Absolute Auto 1.6 X10*3/uL (1.2-4.9); Lymphocytes Percent Auto 21.2 % (20-40); Mean Corpuscular HGB Conc 32.7 g/dl (31.0-35.0); Mean Corpuscular Hemoglobin 30.3 pg (27.0-33.0); Mean Corpuscular Volume 92.8 fL (80.0-98.0); Mean Platelet Volume 10.6 fL (9.4-12.3); Monocytes Absolute Auto 0.8 X10*3/uL (0.1-1.2); Monocytes Percent Auto 10.1 % (2-11); Neutrophils Absolute Auto 4.9 x10*3/uL (2.0-8.3); Neutrophils Percent Auto 65.7 % (45-73); Platelet Count 216 X10*3/uL (160-400); Red Blood Count 3.73 X10*6/uL (4.20-5.50); Red Cell Distribution Width 14.4 % (11.0-16.0); White Blood Count 7.5 X10*3/uL (4.8-10.8)
[2021-11-17 13:55] LABS: Estimated Average Glucose 108 mg/dL; Hemoglobin A1c % 5.4 %
[2021-11-17 14:00] LABS: Alanine Aminotransferase 10 U/L (0-31); Albumin Level 4.5 g/dL (3.5-5.0); Alkaline Phosphatase 88 U/L (39-117); Anion Gap 15 (12-20); Aspartate Amino Transferase 15 U/L (5-31); Bilirubin Total 0.6 mg/dL (0.0-1.0); Blood Urea Nitrogen 39 mg/dL (9-16); Carbon Dioxide 25 mmol/L (22-29); Chloride 102 mmol/L (96-108); Estimated Glomerular Filt Rate 27; Glucose Random 111 mg/dL (60-115); Potassium 4.9 mmol/L (3.3-5.1); Sodium 137 mmol/L (135-145); Total Protein 7.8 g/dL (6.5-8.0)
== END 2021-11-17 12:00 | disposition home or self-care (01) ==
LOC: HO.10HDL 11:59
PROVIDERS: Visit Provider Internal Medicine
DX: I48.91 Unspecified atrial fibrillation (principal); I12.9 Hypertensive chronic kidney disease with stage 1 through stage 4 chronic kidney disease, or unspecified chronic kidney disease; N18.9 Chronic kidney disease, unspecified; E11.22 Type 2 diabetes mellitus with diabetic chronic kidney disease
CPT/HCPCS: 36415; 80053; 83036; 85025

== ENCOUNTER 2021-12-03 07:41 | Outpatient (REF) | payer MEDICARE, OTHER, SELFPAY ==
[2021-12-03 10:50] LABS: Anion Gap 13 (12-20); Blood Urea Nitrogen 38 mg/dL (9-16); Calcium 9.7 mg/dL (8.4-10.2); Carbon Dioxide 23 mmol/L (22-29); Chloride 107 mmol/L (96-108); Estimated Glomerular Filt Rate 30; Glucose Random 113 mg/dL (60-115); Potassium 5.3 mmol/L (3.3-5.1); Sodium 138 mmol/L (135-145)
== END 2021-12-03 07:42 | disposition home or self-care (01) ==
LOC: HO.10HDL 07:41
PROVIDERS: Visit Provider Internal Medicine
DX: N18.9 Chronic kidney disease, unspecified (principal)
CPT/HCPCS: 36415; 80048